=== PATIENT | female | born 1935 | race Caucasian/White ===

== ENCOUNTER 2018-09-20 12:12 | Inpatient (IN) ==
--- OUTSIDE RECORDS SUMMARY | 2018-09-20 12:16 | External Medical Summary | Continuity of Care Document ---
:1935 Author Name Toño Case, Provider Address Unavailable Unavailable , Care Team Providers Name Role Phone Angus Bhagat M.D., I. Unavailable [email or web address] Isabel Unavailable Unavailable Problems Active medical history not documented Allergies and Adverse Reactions Allergy history not documented Medications Medications not documented Procedures Procedures not documented Immunizations Immunizations not documented Plan of Treatment Planned Encounters Appointment; Angus Bhagat M.D. Start: 22-Oct-2018 11:20 Re quest Planned Observations Planned Goals not documented Results No Known Results Results not documented Encounters Appointment; Angus Bhagat M.D. 22-Oct-2018 11:20 Encounter Diagnosis: Problem not documented
[2018-09-20 12:30] LABS: Basophils # (auto) 0.01 K/uL (0-0.2); Basophils % (auto) 0.2 %; Eosinophils # (auto) 0.06 K/uL (0-0.5); Eosinophils % (auto) 1.3 %; Hemoglobin 13.2 g/dL (12.0-16.0); Lymphocytes # (auto) 1.07 K/uL (1.2-3.4); Mean Corpuscular Hgb Conc 34.7 g/dL (32-36); Mean Corpuscular Volume 91.6 fL (80-100); Mean Platelet Volume 10.3 fL (7.4-10.4); Monocytes # (auto) 0.44 K/uL (0.11-0.59); Monocytes % (auto) 9.9 %; Neutrophils # (auto) 2.87 K/uL (1.4-6.5); Neutrophils % (auto) 64.6 %; Platelet Count 153 K/uL (130-400); RDW Standard Deviation 43.5 fL (36.4-46.3); Red Blood Count 4.15 M/uL (4.2-5.4); White Blood Count 4.45 K/uL (4.8-10.8)
--- NOTE | 2018-09-20 12:35 | CT Scan Report ---
CT OF THE HEAD WITHOUT CONTRAST CLINICAL HISTORY: Stroke evaluation. COMPARISON STUDY: No previous studies for comparison. CT DOSE: 601.98 mGy.cm TECHNIQUE: Helical axial images of the head were obtained without IV contrast. Automated exposure con trol was utilized for the study. A dose lowering technique was utilized adhering to the principles o f ALARA. FINDINGS: No acute intracranial hemorrhage is present. The ventricular system is normal. The basilar cisterns are patent. Note is made of a heavily calcified 3.3 cm extra-axial lesion overlying the left temporal lobe. There are no definite CT findings to suggest acute dural sinus thrombosis or acute te rritorial infarct. Note is made of slight indistinctness of salter-white differentiation within the lef t frontal lobe. There are no significant calvarial abnormalities. IMPRESSION: 1. No acute intracranial hemorrhage. 2. Slight indistinctness of the cortex of the left frontal lobe. This is probably artifactual howeve r acute infarct could appear similar. 3. 3.3 cm extra-axial heavily calcified lesion overlying the left temporal lobe which favors a mening ioma. Electronically signed by: Junito Faulkner M.D. 09/20/2018 12:33 PM
[2018-09-20 12:41] LABS: INR 3.1 (0.9-1.1); Partial Thromboplastin Ratio 1.6; Partial Thromboplastin Time 42.4 Seconds (21.0-31.0); Prothrombin Time 29.2 Seconds (9.0-12.0)
[2018-09-20 12:47] LABS: Alanine Aminotransferase 16 U/L (12-78); Albumin Level 3.3 gm/dl (3.4-5.0); Aspartate Aminotransferase 18 U/L (15-37); BUN Creatinine Ratio 13.4 (10-20); Blood Urea Nitrogen 15 mg/dl (7-18); Calcium 8.3 mg/dl (8.5-10.1); Carbon Dioxide 28 mmol/L (21-32); Chloride 109 mmol/L (98-107); Creatinine Clr Calc Pharmacy 33.8 ml/min; Est GFR (African American) 50.8; Est GFR (Non-African American) 43.8; Glucose 116 mg/dl (70-99); Magnesium 2.2 mg/dl (1.8-2.4); Potassium 3.6 mmol/L (3.5-5.1); Sodium 140 mmol/L (136-145)
[2018-09-20 12:52] LABS: Alkaline Phosphatase 101 U/L (45-117); Bilirubin,Total 0.6 mg/dl (0.2-1); Globulin 3.2 gm/dl (2.5-4.0); Total Protein 6.5 gm/dl (6.4-8.2); Troponin I < 0.015 ng/ml (0-0.045)
[2018-09-20 12:55] LABS: iSTAT Creatinine 1.1 mg/dl (0.6-1.3); iSTAT Hemoglobin 13.6 g/dl (12.0-16.0); iSTAT Ionized Calcium 1.12 mmol/l (1.12-1.32); iSTAT Potassium 3.6 mEq/L (3.3-5.0)
[2018-09-20] MEDS ORDERED: OPTIRAY 320 125ml IV PRN (13:03)
--- NOTE | 2018-09-20 13:13 | CT Scan Report ---
CT ANGIOGRAPHY OF THE NECK WITH CONTRAST CLINICAL HISTORY: stroke, rt sided weakness COMPARISON STUDY: No previous studies for comparison. Technique: CT angiography of the carotid and vertebral arteries was obtained using [employer] 320 IV and 3D reconstruction on an independent workstation. NASCET criteria was utilized. Automated exposure c ontrol was utilized for the study. A dose lowering technique was utilized adhering to the principles of ALARA. CT DOSE: 461.39 mGy.cm Findings: Incidental note is made of multiple thyroid nodules. Biapical scarring within the lungs is noted. There is mild plaque within the proximal left internal carotid artery. There is no stenosis. T he bilateral vertebral arteries are patent. The left vertebral artery is dominant. There is no cervic al lymphadenopathy. Epiglottis is normal. No cervical spine fracture is noted. The CTA of the head wi ll be reported separately. IMPRESSION: No stenosis, dissection or aneurysm within the major vessels of the neck. Mild atherosclerotic plaqu e. Electronically signed by: Junito Faulkner M.D. 09/20/2018 1:11 PM
--- NOTE | 2018-09-20 13:21 | CT Scan Report ---
CTA ANGIOGRAPHY OF THE HEAD CLINICAL HISTORY: rt sided weakness COMPARISON STUDY: Head CT performed earlier today. TECHNIQUE: Helical axial images of the head were obtained following uneventful intravenous administr ation of 120 cc of [employer]iray 320. Automated exposure control was utilized for the study. A dose lower ing technique was utilized adhering to the principles of ALARA. FINDINGS: No acute intracranial hemorrhage is present. A heavily calcified 3.7 cm extra-axial lesion within the left middle cranial fossa likely reflects a meningioma. Ventricular system is normal. Basi lar cisterns are patent. There is mild plaque within the bilateral cavernous carotids. There is no st enosis, dissection or abrupt cut off within the intracranial circulation. Posterior circulation is al so intact. IMPRESSION: 1. Unremarkable CTA of the head. 2. 3.7 cm extra-axial heavily calcified lesion within the left middle cranial fossa which favors a me ningioma. This is benign. Electronically signed by: Junito Faulkner M.D. 09/20/2018 1:20 PM
--- NOTE | 2018-09-20 14:34 | History & Physical Report ---
Date of Service September 20, 2018 Assessment & Plan (1) Dysarthria: This is an 83-year-old female with a PMH of HTN, chronic atrial fibrillation (on Coumadin), Alzheimer's disease, HLD, CKD III, hypothyroidism, GERD and venous insufficiency who presents with slurred speech and right-sided weakness beginning around 11 this morning. -Dysarthria still present, R sided weakness has resolved -CT head without acute intracranial hemorrhage. Slight indistinctness of the cortex of the left frontal lobe. This is probably artifactual however acute infarct could appear similar. -CTA head unremarkable, presence of meningioma. CT neck without stenosis, dissection or aneurysm within the major vessels of the neck. Mild atherosclerotic plaque. -Check MRI brain w/wo, echo w/ bubble study -Initiate baby aspirin. Will discuss with neuro about also starting Plavix -Neuro checks, PT, OT, speech therapy evaluations -Passed dysphagia screen, diet advanced -Routine neurology consult (2) Chronic atrial fibrillation: EKG with sinus bradycardia -Anticoagulated on Coumadin with INR of 3.1 -Continue Coumadin, hold if INR > 3.5 -Daily INR check (3) CKD (chronic kidney disease), stage III: Kidney function at baseline -Continue monitoring with daily BMP (4) Hypertension: Normotensive currently -Want to allow for permissive hypertension in setting of possible ischemic stroke to allow for cerebral perfusion, SBP <220, DBP <110 -Home BP medications include amlodipine, hydralazine twice daily (5) Hyperlipidemia: Increased dose of atorvastatin to 40 mg daily (6) Alzheimers disease: Progressive dementia, somewhat oriented to person -Continue Aricept and Namenda (7) GERD (gastroesophageal reflux disease): Continue PPI DVT Ppx: Continue home dose Coumadin Code status: Medical power of personal injury attorney is patient's , who was not at bedside. Unable to reach by phone right now but will try again later. Full CODE STATUS in place for now. PCP: Christophe Dispo: Admitted to telemetry. Discharge planning per stroke set protocol. Patient seen in collaboration with Dr. Gómez. Please see addendum. History of Present Illness Chief Complaint: Slurred speech, right-sided weakness Primary Care Provider: NO PCP This is an 83-year-old female with a PMH of HTN, chronic atrial fibrillation (on Coumadin), Alzheimer's disease, HLD, CKD III, hypothyroidism, GERD and venous insufficiency who presents with slurred speech and right-sided weakness beginning around 11 this morning. Patient lives with at home and has advanced dementia at baseline. Is oriented to self and sometimes to place, per daughter at bedside. Daughter was with her mom this morning and thought she seemed fine. Patient woke up, ambulated independently and ate breakfast. Daughter started noting some more confusion but thought her mom was just tired. By 11 AM, patient was slurring speech and had difficulty ambulating. EMS was called to bring patient to ED for further evaluation. ROS is limited due to patient's cognitive status, but denies any pain at this time. In ED, patient was found to have stable vital signs as well as unremarkable lab work. INR is slightly supratherapeutic at 3.1. CT head with slight indistinctiveness of left frontal lobe consistent with possible acute infarct versus artifact. CTA head/neck unremarkable. Suzi tele-stroke was consulted in the ED, but felt that TPA was contraindicated due to elevated INR. Will admit patient for further stroke work-up including MRI of brain as well as echo with bubble study. No known history of stroke. Does not take baby aspirin. Allergies Allergy/AdvReac Type Severity Reaction Status Date / Time No Known Allergies Allergy Unverified 09/20/18 12:58 Home Medications Home Medications Medication Instructions Recorded Confirmed Type amlodipine [Norvasc] 5 mg PO DAILY 09/20/18 09/20/18 History atorvastatin [Lipitor] 0 mg PO DAILY 09/20/18 09/20/18 History cholecalciferol (vitamin D3) 0 unit PO BID 09/20/18 09/20/18 History [Vitamin D3] citalopram 20 mg PO DAILY 09/20/18 09/20/18 History donepezil 10 mg PO DAILY 09/20/18 09/20/18 History hydralazine 25 mg PO BID 09/20/18 09/20/18 History levothyroxine 88 mcg PO DAILY 09/20/18 09/20/18 History memantine 5 mg PO BIDM 09/20/18 09/20/18 History pantoprazole 40 mg PO BID 09/20/18 09/20/18 History raloxifene 60 mg PO DAILY 09/20/18 09/20/18 History warfarin [Coumadin] 6 mg PO DAILY 09/20/18 09/20/18 History Past Med/Surg History Medical History Lupus erythematosus (Chronic) Lupus erythematosus based on skin biopsy - labs negative GERD (gastroesophageal reflux disease) (Chronic) Anticoagulant long-term use (Chronic) Chronic atrial fibrillation (Chronic) Venous insufficiency (Chronic) CKD (chronic kidney disease), stage III (Chronic) Hyperlipidemia (Chronic) Hypertension (Chronic) Alzheimers disease (Chronic) Surgical History History of cataract surgery (Chronic) History of partial hysterectomy (Chronic) Family History Other Diabetes Social History Preferred Language: Bulgarian marital status: Current Living Situation: Spouse current occupational status: retired Feels Safe at Home: Yes Smoking Status: Never smoker Hx Alcohol Use: No Review of Systems Review of Systems: At least ten systems reviewed and negative except as noted in the HPI. Physical Exam Physical Exam: General Appearance: WD/WN, no apparent distress, resting comfortably, pleasantly confused Head: normocephalic, atraumatic Eyes: normal inspection, PERRL, EOMI ENT: hearing grossly normal, pharynx normal (moist mucous membranes) Neck: supple, no JVD, no adenopathy Respiratory/Chest: lungs clear to auscultation. No wheezes, rales or rhonci. No respiratory distress or accessory muscle use Cardiovascular: regular rate, rhythm, no murmur, normal peripheral pulses Abdomen/GI: normal bowel sounds, soft, non-tender to palpation Extremities/Musculoskelatal: normal inspection, no calf tenderness, normal capillary refill, no pedal edema Neurologic/Psych: alert, normal mood/affect, oriented x 0. Pleasantly confused, able to follow commands. +Dysarthria, no facial droop, 5/5 ALLEN in all extremities Skin: normal color, warm/dry Results & Data Vital Signs (Past 12 Hours) Vital Signs Temp Pulse Resp BP Pulse Ox 09/20/18 13:39 45 L 15 146/61 H 93 09/20/18 13:31 48 L 132/62 93 09/20/18 13:10 51 L 18 134/54 L 93 09/20/18 12:12 36.4 C L 51 L 16 136/61 91 Laboratory Results Short CBC 09/20/18 Range/Units 12:02 WBC 4.45 L (4.8-10.8) K/uL Hgb 13.2 (12.0-16.0) g/dL Hct 38.0 (37-47) % Plt Count 153 (130-400) K/uL BMP 09/20/18 12:02 Sodium 140 Potassium 3.6 Chloride 109 H Carbon Dioxide 28 BUN 15 Creatinine 1.14 Glucose 116 H Calcium 8.3 L Cardiac Enzymes 09/20/18 Range/Units 12:02 Troponin I < 0.015 (0-0.045) ng/ml Liver Function 09/20/18 Range/Units 12:02 Total Bilirubin 0.6 (0.2-1) mg/dl AST 18 (15-37) U/L ALT 16 (12-78) U/L Alkaline Phosphatase 101 (45-117) U/L Albumin 3.3 L (3.4-5.0) gm/dl Diagnostic Findings CT head: IMPRESSION: 1. No acute intracranial hemorrhage. 2. Slight indistinctness of the cortex of the left frontal lobe. This is probably artifactual however acute infarct could appear similar. 3. 3.3 cm extra-axial heavily calcified lesion overlying the left temporal lobe which favors a meningioma CTA head: IMPRESSION: 1. Unremarkable CTA of the head. 2. 3.7 cm extra-axial heavily calcified lesion within the left middle cranial fossa which favors a meningioma. This is benign. CTA neck: IMPRESSION: No stenosis, dissection or aneurysm within the major vessels of the neck. Mild atherosclerotic plaque. Supervising Physician Co-Signing Physician Notes ATTENDING ADDENDUM Patient seen and examined, care coordinated with Lynn Tim PA-C This is a 83-year-old female with baseline dementia, hypertension, hyperli pidemia, chronic A. fib on Coumadin for anticoagulation, brought to ER via EMS for strokelike symptoms Patient's daughter noticed approximately 11 AM patient was found to be more confused, unable to articulate, right-sided weakness Stroke alert was called in the ER after patient's arrival Patient was evaluated by [facility] stroke neurology,-patient was found to not a TPA candidate: On Coumadin INR 3 Patient unable to provide any information, for baseline dementia, daughter present at bedside most of the information obtained from her Daughter reports patient's confusion is much better, still having trouble to speak Bedside neurological evaluation showed no focal deficit CT head noncontrast 1. No acute intracranial hemorrhage. 2. Slight index in distinctness of the carpus of the left frontal lobe. This is probably artifactual however acute infarct could appear similar. 3. Heavily calcified lesion overlying the left temporal lobe which favors a meningioma. 3.3 cm extra-axial CTA of neck was negative study Patient will be admitted to telemetry, MRI of brain will be ordered per stroke protocol, echo with bubble study note suspicion for intra-cardiac thrombus, as patient is already therapeutic anticoagulation with Coumadin Neurology consult requested Lipitor dose increased to 40 mg daily for high intensity statin therapy Ordered fasting lipids, TSH, hemoglobin A1c in a.m. lab Bedside dysphagia screen was normal/no evidence of swallowing difficulty /ordered for diet PT OT Confusion/metabolic encephalopathy: Possibly secondary to acute CVA, baseline dementia Per daughter patient's mental status improved to approximate baseline continue Namenda Caution for sundowning, delirium Would avoid narcotics, benzodiazepine We will hold home antihypertensive meds amlodipine and hydralazine to allow permissive hypertension in the setting of possible acute CVA Coagulopathy: INR more than 3 Hold Coumadin, will be resumed to keep goal INR between 23 Leisa Gómez MD
--- NOTE | 2018-09-20 14:36 | Emergency Department Note ---
Entered by Demetrice Becerra acting as a scribe for History of Present Illness General Chief complaint: Stroke/CVA Symptoms Source: patient, family (daughter) and EMS Mode of arrival: EMS History of Present Illness Onset (ago): hour(s) (this morning) Location: head Pain Consistency: + other (episode) Quality: + other (stroke symptoms) Associated symptoms: + denies other symptoms (abdominal pain), + confusion, + weakness (right-sided lower extremity) and + other (difficulty standing or walking); no chest pain and no fever/chills The patient is a 83 year old female that is presenting to the Emergency Room with complaints of an episode of stroke-like symptoms that started this morning after waking around 0900. EMS reports that the patient was found to have right- sided weakness that worsened over the course of the morning. The patients daughter notes that the patient was well last night and that her speech was clear when she spoke with her at that time. Her daughter states that the patients speech deteriorated this morning, becoming more slurred than baseline. The daughter reports that the patient was having difficulty standing up and was unable to walk on her own. EMS states that the patient was unable to lift her right leg when they arrived. Her right-sided weakness has improved slightly as the patient's right leg is slightly weaker than the left. She is found to have a good leak patcher on exam. The patient was able to recite her name and name common objects on arrival to the Emergency Room. Her daughter states that the patients speech is still slurred. The patient denies any fevers, cough, chest pain, or abdominal pain. She notes that she is unsure why she is in the Emergency Room today. The patients daughter reports that the patient has a history of Alzheimers, chronic UTIs, and diverticulitis. Her daughter notes that the patient does not recognize people at baseline secondary to her Alzheimers but states that she is able to complete basic personal care tasks. Home Medications Home Medications Medication Instructions Recorded Confirmed Type amlodipine [Norvasc] 5 mg PO DAILY 09/20/18 09/20/18 History atorvastatin [Lipitor] 0 mg PO DAILY 09/20/18 09/20/18 History cholecalciferol (vitamin D3) 0 unit PO BID 09/20/18 09/20/18 History [Vitamin D3] citalopram 20 mg PO DAILY 09/20/18 09/20/18 History donepezil 10 mg PO DAILY 09/20/18 09/20/18 History hydralazine 25 mg PO BID 09/20/18 09/20/18 History levothyroxine 88 mcg PO DAILY 09/20/18 09/20/18 History memantine 5 mg PO BIDM 09/20/18 09/20/18 History pantoprazole 40 mg PO BID 09/20/18 09/20/18 History raloxifene 60 mg PO DAILY 09/20/18 09/20/18 History warfarin [Coumadin] 6 mg PO DAILY 09/20/18 09/20/18 History Allergies Allergy/AdvReac Type Severity Reaction Status Date / Time No Known Allergies Allergy Unverified 09/20/18 12:58 Past Med/Surg History Medical History Lupus erythematosus (Chronic) Lupus erythematosus based on skin biopsy - labs negative GERD (gastroesophageal reflux disease) (Chronic) Anticoagulant long-term use (Chronic) Chronic atrial fibrillation (Chronic) Venous insufficiency (Chronic) CKD (chronic kidney disease), stage III (Chronic) Hyperlipidemia (Chronic) Hypertension (Chronic) Alzheimers disease (Chronic) Surgical History History of cataract surgery (Chronic) History of partial hysterectomy (Chronic) Family History Other Diabetes Social History Preferred Language: Vincentian marital status: Current Living Situation: Spouse current occupational status: retired Feels Safe at Home: Yes Smoking Status: Never smoker Hx Alcohol Use: No Review of Systems See HPI for pertinent positives & negatives. and A total of 10 systems reviewed and were otherwise negative Physical Exam Vital Signs Vital Signs - 24 hr 09/20/18 12:12 09/20/18 13:10 09/20/18 13:31 Temperature 36.4 C L Temperature Source Oral Sepsis Recent Fever Within 48 Hours No Sepsis New/Unexplained Change in Mental Status No Sepsis Action Taken by Nursing No Action Required Pulse Rate 51 L 51 L 48 L Pulse Rate from SpO2 Sensor 50 L 48 L Respiratory Rate 16 18 Respiratory Effort / Characteristics Non-Labored Spontaneous Respiratory Depth Normal Respiratory Pattern Regular Blood Pressure 136/61 134/54 L 132/62 Blood Pressure Mean 86 80 85 Pulse Oximetry 91 93 93 Oxygen Delivery Method Room Air Room Air Room Air 09/20/18 13:39 09/20/18 14:00 09/20/18 14:02 Temperature Temperature Source Sepsis Recent Fever Within 48 Hours Sepsis New/Unexplained Change in Mental Status Sepsis Action Taken by Nursing Pulse Rate 45 L 46 L 49 L Pulse Rate from SpO2 Sensor 45 L 46 L 49 L Respiratory Rate 15 15 18 Respiratory Effort / Characteristics Respiratory Depth Respiratory Pattern Blood Pressure 146/61 H 139/76 Blood Pressure Mean 89 97 Pulse Oximetry 93 91 94 Oxygen Delivery Method Room Air 09/20/18 14:30 Temperature Temperature Source Sepsis Recent Fever Within 48 Hours Sepsis New/Unexplained Change in Mental Status Sepsis Action Taken by Nursing Pulse Rate 56 L Pulse Rate from SpO2 Sensor 53 L Respiratory Rate 20 Respiratory Effort / Characteristics Respiratory Depth Respiratory Pattern Blood Pressure Blood Pressure Mean Pulse Oximetry 93 Oxygen Delivery Method General: Non-ill appearing demented older female in no acute distress. Answers questions appropriately with some baseline dementia. HEENT: Normal cephalic atraumatic. Pupils are equal round and reactive to light. Extraocular movements are intact. Oropharynx is pink with moist mucous membranes. No swelling of the mouth lips or tongue. Neck: Supple with a midline trachea. No meningeal signs or stiffness, no JVD or bruits. No Stridor. Chest: Clear to auscultation bilaterally. No wheezes or rhonchi. No increased work of breathing. Heart: regular rate and rhythm. Abdomen: Soft nontender, nondistended without rebound guarding or rigidity. Extremities: No cyanosis clubbing or edema. No calf tenderness or asymmetry Spine/Back. Non tender to palpation. No CVA tenderness Skin: Good turgor without rashes. Neurologic exam: Cranial nerves two through 12 are intact. Motor and sensation are intact throughout. No facial asymmetry. Questionable slight slurring in speech. Right leg is slightly weaker than left. Course 1205: After speaking with EMS, I placed the patient on stroke alert prior to arrival at the Emergency Room. The patient was reportedly experiencing right- sided weakness and slurred speech. 1212:The patient was evaluated in room B01. A complete history and physical examination was performed. The patient appears to have an improvement in her symptoms with increased leak patcher strength and greater right-sided strength. The patient's INR is 3.5. 1233: I discussed the patient's case with Dr. Cordova, [facility], who agreed that the patient is not a tPA candidate given her elevated INR. He stated that the patient is unlikely an interventional candidate. He recommended a CTA head and neck be completed. 1330: I updated the patient on her current lab and imaging results. 1335: I discussed the patients case with TIERA Diaz, who will evaluate the patient for further management and care with Dr. Gómez as the attending physician. 1340: Upon reevaluation, the patient is resting comfortably. I discussed laboratory and radiographic results with the patient and her daughter. She verbalized agreement of the treatment plan. The patient will be evaluated for further management and care. Consultations Consultation #1: I discussed the patient's case with Dr. Cordova, [facility], who agreed that the patient is not a tPA candidate. He stated that the patient is unlikely interventional candidate. He recommended a CTA be completed. Time: 12:33 Consultation #2: I discussed the patients case with TIERA Diaz, who will evaluate the patient for further management and care with Dr. Gómez as the attending physician. Time: 13:35 Administered Medications Ioversol (Optiray 320 125ml) 120 ml IV ONCE PRN PRN Reason: Interaction Checking Stop: 09/24/18 13:02 Last Admin: 09/20/18 13:03 Dose: 120 ml Documented by: [id number] Medical Decision Making Differential Diagnosis Differential Diagnosis: Etiologies such as stroke, TIA, intracranial hemorrhage, electrolyte or metabolic abnormalities, infection as well as others were entertained. Medical Records Attestation: I reviewed the patient's medical records. Home Medications Current Medication List: was personally reviewed by me Laboratory Data Attestation: I reviewed the patient's lab results. Result diagrams: 09/20/18 12:02 09/20/18 12: Lab Results 09/20/18 09/20/18 09/20/18 Range/Units 12:02 12:02 12:02 WBC 4.45 L (4.8-10.8) K/uL RBC 4.15 L (4.2-5.4) M/uL Hgb 13.2 (12.0-16.0) g/dL POC Hgb (12.0-16.0) g/dl Hct 38.0 (37-47) % POC Hct (37-47) % MCV 91.6 (80-100) fL MCH 31.8 (25-34) pg MCHC 34.7 (32-36) g/dL RDW Std Deviation 43.5 (36.4-46.3) fL RDW Coeff of Hilda 13.0 (11.5-14.5) % Plt Count 153 (130-400) K/uL MPV 10.3 (7.4-10.4) fL Immature Gran % (Auto) 0.0 % Neut % (Auto) 64.6 % Lymph % (Auto) 24.0 % [place] % (Auto) 9.9 % Eos % (Auto) 1.3 % Baso % (Auto) 0.2 % Immature Gran # (Auto) 0.00 (0.00-0.02) K/uL Neut # (Auto) 2.87 (1.4-6.5) K/uL Lymph # (Auto) 1.07 L (1.2-3.4) K/uL [place] # (Auto) 0.44 (0.11-0.59) K/uL Eos # (Auto) 0.06 (0-0.5) K/uL Baso # (Auto) 0.01 (0-0.2) K/uL PT 29.2 H (9.0-12.0) Seconds INR 3.1 H (0.9-1.1) APTT 42.4 H (21.0-31.0) Seconds PTT Ratio 1.6 POC Sodium (135-144) mEq/L Sodium 140 (136-145) mmol/L POC Potassium (3.3-5.0) mEq/L Potassium 3.6 (3.5-5.1) mmol/L POC Chloride (101-112) mEq/L Chloride 109 H (98-107) mmol/L Carbon Dioxide 28 (21-32) mmol/L POC Total CO2 (24-31) mEq/l Anion Gap 3.0 (3-11) POC Anion Gap (16-25) mmol/L POC BUN (7-18) mg/dl BUN 15 (7-18) mg/dl Creatinine 1.14 (0.6-1.2) mg/dl POC Creatinine (0.6-1.3) mg/dl Est Cr Clr Drug Dosing 33.8 ml/min Est GFR ( Amer) 50.8 Est GFR (Non-Af Amer) 43.8 BUN/Creatinine Ratio 13.4 (10-20) Glucose 116 H (70-99) mg/dl POC Glucose (70-99) POC Glucose (other) (70-99) mg/dl Calcium 8.3 L (8.5-10.1) mg/dl POC Ioniz Calcium Adilene (1.12-1.32) mmol/l Magnesium 2.2 (1.8-2.4) mg/dl Total Bilirubin 0.6 (0.2-1) mg/dl AST 18 (15-37) U/L ALT 16 (12-78) U/L Alkaline Phosphatase 101 (45-117) U/L Troponin I < 0.015 (0-0.045) ng/ml Total Protein 6.5 (6.4-8.2) gm/dl Albumin 3.3 L (3.4-5.0) gm/dl Globulin 3.2 (2.5-4.0) gm/dl Albumin/Globulin Ratio 1.0 (0.9-2) Blood Type Antibody Screen 09/20/18 09/20/18 09/20/18 Range/Units 12:24 12:35 12:41 WBC (4.8-10.8) K/uL RBC (4.2-5.4) M/uL Hgb (12.0-16.0) g/dL POC Hgb 13.6 (12.0-16.0) g/dl Hct (37-47) % POC Hct 40 (37-47) % MCV (80-100) fL MCH (25-34) pg MCHC (32-36) g/dL RDW Std Deviation (36.4-46.3) fL RDW Coeff of Hilda (11.5-14.5) % Plt Count (130-400) K/uL MPV (7.4-10.4) fL Immature Gran % (Auto) % Neut % (Auto) % Lymph % (Auto) % [place] % (Auto) % Eos % (Auto) % Baso % (Auto) % Immature Gran # (Auto) (0.00-0.02) K/uL Neut # (Auto) (1.4-6.5) K/uL Lymph # (Auto) (1.2-3.4) K/uL [place] # (Auto) (0.11-0.59) K/uL Eos # (Auto) (0-0.5) K/uL Baso # (Auto) (0-0.2) K/uL PT (9.0-12.0) Seconds INR (0.9-1.1) APTT (21.0-31.0) Seconds PTT Ratio POC Sodium 143 (135-144) mEq/L Sodium (136-145) mmol/L POC Potassium 3.6 (3.3-5.0) mEq/L Potassium (3.5-5.1) mmol/L POC Chloride 104 (101-112) mEq/L Chloride (98-107) mmol/L Carbon Dioxide (21-32) mmol/L POC Total CO2 26 (24-31) mEq/l Anion Gap (3-11) POC Anion Gap 17.0 (16-25) mmol/L POC BUN 15 (7-18) mg/dl BUN (7-18) mg/dl Creatinine (0.6-1.2) mg/dl POC Creatinine 1.1 (0.6-1.3) mg/dl Est Cr Clr Drug Dosing ml/min Est GFR ( Amer) Est GFR (Non-Af Amer) BUN/Creatinine Ratio (10-20) Glucose (70-99) mg/dl POC Glucose 103 H (70-99) POC Glucose (other) 113 H (70-99) mg/dl Calcium (8.5-10.1) mg/dl POC Ioniz Calcium [place] 1.12 (1.12-1.32) mmol/l Magnesium (1.8-2.4) mg/dl Total Bilirubin (0.2-1) mg/dl AST (15-37) U/L ALT (12-78) U/L Alkaline Phosphatase (45-117) U/L Troponin I (0-0.045) ng/ml Total Protein (6.4-8.2) gm/dl Albumin (3.4-5.0) gm/dl Globulin (2.5-4.0) gm/dl Albumin/Globulin Ratio (0.9-2) Blood Type O Positive Antibody Screen NEGATIVE Imaging Data Radiologist's Impression: Radiology results as stated below per my review and the radiologist's interpretation: CT OF THE HEAD WITHOUT CONTRAST CLINICAL HISTORY: Stroke evaluation. COMPARISON STUDY: No previous studies for comparison. CT DOSE: 601.98 mGy.cm TECHNIQUE: Helical axial images of the head were obtained without IV contrast. Automated exposure control was utilized for the study. A dose lowering technique was utilized adhering to the principles of ALARA. FINDINGS: No acute intracranial hemorrhage is present. The ventricular system is normal. The basilar cisterns are patent. Note is made of a heavily calcified 3.3 cm extra-axial lesion overlying the left temporal lobe. There are no definite CT findings to suggest acute dural sinus thrombosis or acute territo rial infarct. Note is made of slight indistinctness of salter-white differentiation within the left frontal lobe. There are no significant calvarial abnormalities. IMPRESSION: 1. No acute intracranial hemorrhage. 2. Slight indistinctness of the cortex of the left frontal lobe. This is probably artifactual however acute infarct could appear similar. 3. 3.3 cm extra-axial heavily calcified lesion overlying the left temporal lobe which favors a meningioma. Electronically signed by: Junito Faulkner M.D. 09/20/2018 12:[address] ANGIOGRAPHY OF THE NECK WITH CONTRAST CLINICAL HISTORY: stroke, rt sided weakness COMPARISON STUDY: No previous studies for comparison. Technique: CT angiography of the carotid and vertebral arteries was obtained using Optiray 320 IV and 3D reconstruction on an independent workstation. NASCET criteria was utilized. Automated exposure control was utilized for the study. A dose lowering technique was utilized adhering to the principles of ALARA. CT DOSE: 461.39 mGy.cm Findings: Incidental note is made of multiple thyroid nodules. Biapical scarring within the lungs is noted. There is mild plaque within the proximal left internal carotid artery. There is no stenosis. The bilateral vertebral arteries are patent. The left vertebral artery is dominant. There is no cervical lymphadenopathy. Epiglottis is normal. No cervical spine fracture is noted. The CTA of the head will be reported separately. IMPRESSION: No stenosis, dissection or aneurysm within the major vessels of the neck. Mild atherosclerotic plaque. Electronically signed by: Junito Faulkner M.D. 09/20/2018 1:11 PM CTA ANGIOGRAPHY OF THE HEAD CLINICAL HISTORY: rt sided weakness COMPARISON STUDY: Head CT performed earlier today. TECHNIQUE: Helical axial images of the head were obtained following uneventful intravenous administration of 120 cc of [employer]iray 320. Automated exposure control was utilized for the study. A dose lowering technique was utilized adhering to the principles of ALARA. FINDINGS: No acute intracranial hemorrhage is present. A heavily calcified 3.7 cm extra-axial lesion within the left middle cranial fossa likely reflects a meningioma. Ventricular system is normal. Basilar cisterns are patent. There is mild plaque within the bilateral cavernous carotids. There is no stenosis, dissection or abrupt cut off within the intracranial circulation. Posterior circulation is also intact. IMPRESSION: 1. Unremarkable CTA of the head. 2. 3.7 cm extra-axial heavily calcified lesion within the left middle cranial fossa which favors a meningioma. This is benign. Electronically signed by: Junito Faulkner M.D. 09/20/2018 1:20 PM ECG Data Attestation: I personally reviewed and interpreted this ECG as follows: Indication: weakness Rate (beats per minute): 46 Rhythm: sinus bradycardia Findings: no PAC, no PVC, no ST depression, no ST elevation, no acute ischemic change and no ectopy Comparison ECG Date: from (08/18/2015) Change: the following changes noted (rate decrease) Blood Pressure Blood Pressure Findings: Normal blood pressure MDM Narrative This patient is a 83-year-old female who comes in as a stroke alert. I talked to the paramedics prior to arrival and did make her a stroke alert as approximately 1 hour prior to arrival by the report she had right-sided weakness and slurred speech which is new she does have baseline dementia. She is on Coumadin. no recent illness or trauma known although history was somewhat limited prior to arrival. We took her immediately to CAT scan and while she was over there we also got an i-STAT for an INR and it was elevated and greater than 2.5 and therefore it would exclude her from receiving TPA. Additionally it seems like her symptoms have gotten somewhat better. she has minimal residual weakness in her right hand and it may be just a little pronator drift the right leg does seem to be weaker than the left. she is able to move it somewhat but has a difficult time holding it up compared to the left. Her daughter also thinks her speech may be a little slurred. She does have baseline dementia so it is difficult to tell about questioning orientation. CAT scan of her head was unremarkable there is no hemorrhage. EKG shows sinus bradycardia. She has no acute electrode or metabolic abnormalities and thus far nothing to suggest infection. I did discuss case with Dr. Mckeon and talked to him prior to the patient's arrival as well as her arrival. He agrees that she is not a TPA candidate given her elevated INR. He did recommend a CTA of the head and neck which I did and there are no large vessel occlusions. He said that if that was the case then there would be nothing that they could offer her at [place] differently than here. I discussed this with the daughter she agrees we will keep her here for further treatment evaluation of her stroke. The daughter was happy the plan and she was admitted and I talked to the [facility] hospitalist. Impression & Plan CVA (cerebral vascular accident), Dementia, Chronic atrial fibrillation, Anticoagulant long-term use Discharge Plan Visit Data Chief Complaint: Stroke/CVA Symptoms ED Provider: Fran Frias Discharge Problem: CVA (cerebral vascular accident), Dementia, Chronic atrial fibrillation, Anticoagulant long-term use Patient Disposition: Being Evaluated by Hospitalist Forms Stand Alone Forms: My [facility] Prescriptions Prescriptions: No Action atorvastatin [Lipitor] 10 mg Tablet PO DAILY RF: 0 donepezil 10 mg Tablet 10 mg PO DAILY RF: 0 hydralazine 25 mg Tablet 25 mg PO BID RF: 0 amlodipine [Norvasc] 5 mg Tablet 5 mg PO DAILY RF: 0 warfarin [Coumadin] 6 mg Tablet 6 mg PO DAILY RF: 0 citalopram 20 mg Tablet 20 mg PO DAILY RF: 0 pantoprazole 40 mg Tablet,Delayed Release (Dr/Ec) 40 mg PO BID RF: 0 raloxifene 60 mg Tablet 60 mg PO DAILY RF: 0 memantine 5 mg Tablet 5 mg PO BIDM RF: 0 cholecalciferol (vitamin D3) [Vitamin D3] 1,000 unit Tablet PO BID RF: 0 levothyroxine 88 mcg Capsule 88 mcg PO DAILY RF: 0 Referrals Referrals: PCP,NO [Primary Care Provider] - The scribe's documentation has been prepared under my direction and personally r eviewed by me in its entirety. I confirm that the note above accurately reflects all work, treatment, procedures, and medical decision making performed by me.
[2018-09-20] MEDS ORDERED: NITROGLYCERIN SL 0.4 MG/TAB TAB SL PRN (16:28)
[2018-09-20] MEDS ORDERED: ONDANSETRON INJ 2 MG/ML 2 ML VIAL IV PRN (16:28)
[2018-09-20] MEDS ORDERED: WARFARIN SOD 6 MG TAB PO SCH (16:28)
[2018-09-20] MEDS ORDERED: PHARMACIST DISCHARGE MED REC CONSULT PRN (16:28)
[2018-09-20] MEDS: MEMANTINE HCL 5 MG TAB PO SCH (20:55)
[2018-09-20] MEDS: PANTOprazole 40 MG TAB PO SCH (20:55)
[2018-09-21 06:11] LABS: Eosinophils # (auto) 0.02 K/uL (0-0.5); Eosinophils % (auto) 0.3 %; Hematocrit (blood only) 40.6 % (37-47); Immature Granulocytes # (auto) 0.01 K/uL (0.00-0.02); Immature Granulocytes % (auto) 0.2 %; Lymphocytes # (auto) 0.69 K/uL (1.2-3.4); Lymphocytes % (auto) 10.7 %; Mean Corpuscular Hgb Conc 34.5 g/dL (32-36); Mean Corpuscular Volume 90.8 fL (80-100); Mean Platelet Volume 10.6 fL (7.4-10.4); Monocytes # (auto) 0.35 K/uL (0.11-0.59); Monocytes % (auto) 5.4 %; Neutrophils # (auto) 5.38 K/uL (1.4-6.5); Neutrophils % (auto) 83.4 %; Platelet Count 145 K/uL (130-400); RDW Coefficient of Variation 12.7 % (11.5-14.5); RDW Standard Deviation 42.2 fL (36.4-46.3); Red Blood Count 4.47 M/uL (4.2-5.4); White Blood Count 6.45 K/uL (4.8-10.8)
[2018-09-21 06:21] LABS: INR 3.2 (0.9-1.1); Prothrombin Time 30.3 Seconds (9.0-12.0)
[2018-09-21] MEDS ORDERED: LEVOTHYROXINE SODIUM 88 MCG TABLET PO SCH (06:30)
[2018-09-21 06:51] LABS: BUN Creatinine Ratio 13.7 (10-20); Calcium 8.4 mg/dl (8.5-10.1); Creatinine Clr Calc Pharmacy 41.4 ml/min; Potassium 3.3 mmol/L (3.5-5.1)
[2018-09-21] MEDS ORDERED: POTASSIUM CHLORIDE 20 MEQ TABCR PO ONE (08:30)
[2018-09-21] MEDS: MEMANTINE HCL 5 MG TAB PO SCH (08:59)
[2018-09-21] MEDS: PANTOprazole 40 MG TAB PO SCH (08:59)
[2018-09-21] MEDS ORDERED: CHOLECALCIFEROL 1,000 UNITS TAB PO SCH (09:00)
[2018-09-21] MEDS ORDERED: CITALOPRAM 20 MG TAB PO SCH (09:00)
[2018-09-21] MEDS ORDERED: ATORVASTATIN 40 MG TAB PO SCH (09:00)
[2018-09-21] MEDS ORDERED: AMLODIPINE BESYLATE 5 MG TAB PO SCH (09:00)
[2018-09-21] MEDS ORDERED: DONEPEZIL HCL 10 MG TAB PO SCH (09:00)
[2018-09-21] MEDS ORDERED: RALOXIFENE HCL 60 MG TAB PO SCH (09:00)
[2018-09-21] MEDS ORDERED: ASPIRIN 81 MG ECTAB PO SCH (09:00)
--- NOTE | 2018-09-21 10:09 | Magnetic Resonance Report ---
MR ANGIOGRAM OF THE BRAIN CLINICAL HISTORY: Strokelike symptoms. COMPARISON STUDY: CT angiogram of the brain dated 09/20/2018. TECHNIQUE: 3-D [id number] MR angiography of the intracranial circulation is performed. 3-D tumble views are created and assessed. IV contrast was not administered for this examination. FINDINGS: The internal carotid arteries are widely patent bilaterally, as are the anterior and middl e cerebral arteries. The vertebrobasilar system and posterior cerebral arteries are widely patent. Th e left vertebral artery is dominant. There is no aneurysm, high-grade stenosis, or focal vessel cuto ff seen throughout the intracranial circulation. The brain parenchyma is normal as visualized. IMPRESSION: Unremarkable MR angiogram of the brain. No change from yesterday's CT angiogram of the b rain. Electronically signed by: Rene Small M.D. 09/21/2018 10:08 AM
[2018-09-21] MEDS ORDERED: GADOBUTROL 30ML VIAL IV PRN (10:12)
--- NOTE | 2018-09-21 10:24 | Magnetic Resonance Report ---
MRI OF THE BRAIN COMBO CLINICAL HISTORY: Strokelike symptoms. COMPARISON STUDY: CT of the brain dated 09/20/2018. TECHNIQUE: MRI of the brain was performed utilizing various T1 and T2-weighted sequences in the axial , sagittal, and coronal planes. Contrast-enhanced sequences were acquired following the administratio n of 6.5 cc of Gadavist. FINDINGS: Brain parenchyma: There is age-related involutional change noting moderate confluent subcortical and periventricular microangiopathic disease. There is a 1.9 cm focus of restricted diffusion identified in the left linn. This is consistent with acute to subacute ischemia. No additional foci of acute isc hemia are identified. There is no hemorrhage or midline shift. A 3.8 cm densely calcified extra-axial nodule along the left temporal convexity is unchanged and likely represents a meningioma. This cause s only minimal localized mass effect. No additional mass lesion is identified on the postcontrast bear ges. No extra-axial fluid collection is seen. The cerebellar tonsils are normal in configuration. Ventricles, sulci, and cisterns: Prominent secondary to involutional change. Pituitary and sella: Unremarkable. Intracranial vasculature: Normal flow voids are maintained at the skull base. Orbits: The bony orbits are grossly intact. Orbital contents are normal in appearance, noting bilater al ocular lens implants. Sinuses and mastoids: Clear. Calvarium: Unremarkable. Cervical cord: Partially visualized cervical spinal cord is normal in morphology and signal intensity . IMPRESSION: 1. There is a 1.9 cm focus of restricted diffusion identified in the left linn consistent with acute to subacute infarct. 2. No additional foci of acute ischemia are identified. 3. There is no hemorrhage or mass effect. 4. A 3.8 cm densely calcified extra-axial lesion along the left temporal convexity is typical appeara nce for a large meningioma. This causes only mild localized mass effect. Electronically signed by: Rene Small M.D. 09/21/2018 10:22 AM
--- NOTE | 2018-09-21 14:21 | Consultation Report ---
DATE OF CONSULTATION: 09/21/2018 REASON FOR CONSULTATION: Possible stroke. HISTORY OF PRESENT ILLNESS: The patient is an 83-year-old with hypertension, chronic atrial fibrillation, therapeutic on Coumadin, Alzheimer disease, hyperlipidemia, kidney disease, hypothyroidism, and reflux, presenting with a sudden onset of slurred speech and right-sided weakness. The indicates that she has been in her usual state of health, no prior history of transient ischemia. She has recently been ill. No head or neck injury. PAST MEDICAL HISTORY: As above, additionally cutaneous lupus, reflux, atrial fibrillation. PAST SURGICAL HISTORY: Cataract surgery, partial hysterectomy. FAMILY HISTORY: Possible stroke. SOCIAL HISTORY: Nonsmoker, nondrinker. Lives with her . LABORATORY DATA: White count, H and H, and platelet count are normal. INR 3.1 on admission. Chemistry profile notable for glucose of 116, calcium 8.3, albumin 3.3. CT of the head noncontrast; extraaxial heavily calcified lesion in the left temporal lobe, favoring meningioma (this is known). CTA of head and neck unremarkable, mild atherosclerotic changes. MRI of the brain; 1.9 cm focus of restricted diffusion in the left linn, 3.8 cm densely calcified extraaxial lesion mass in the left yazidi convexity typical for a large meningioma present, mild localized mass effect. MRA unremarkable. PHYSICAL EXAMINATION: VITAL SIGNS: 129/67, 54, 17, 36.6, 92. GENERAL: The patient is awake and alert. There is a paucity of spontaneous speech. She is oriented only to self. There is some mild spontaneous word finding difficulty, which I am assuming is related to her cognitive dysfunction. Speech is dysarthric. Unclear if there is right/left confusion. HEAD: Normocephalic, atraumatic. NECK: No carotid bruits. HEART: No heart murmurs. Heart is irregular. NEUROLOGIC: Pupils are postsurgical. Optic nerves are difficult to visualize, grossly it appears boggs are intact. There is normal motility. There is a flattening of the right nasolabial fold and a widening of the right palpebral fissure. There is decreased tone in the right upper and right lower; they are 0/5. Left upper and left lower appear to be full. Reflexes are symmetric. Right toe is up, left toe is down. There appears to be a right hemianesthesia at least to light touch. IMPRESSION AND PLAN: 1. 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 Recommend adding antiplatelet therapy with aspirin 81 mg. Continue risk factor modification. 2. Large left hemisphere meningioma. I do not know to what extent this is causing any of the noted language dysfunction which could otherwise certainly be consistent with Alzheimer's disease. The patient will obviously need significant rehabilitation. Further workup including monitoring and echo is appropriate. Addendum 6:12 pm. I spoke to Dr Gómez several hours ago. She clarified for me that on admission the pt had a minor neurologic deficit. At some point between her admission there had been a marked increase in weakness. When I had discussed with that admission history indicated that she had improved from admission. He indicated that the weakness had not improved. Her had been out of town yesterday, so may not have been aware of what strength had been. This a probably a small vessel branch occlusion. There is no hemorrhagic transformation. I rec avoiding low blood pressure, hydrating in an attempt to maintain good perfusion. Continue anticoagulation and repeat CT head tomorrow am. If the infarct is not large or hemorrhagic will consider the addition of aspiring 81 mg at that time. ARSEN Cummins MD [facility]
--- NOTE | 2018-09-21 14:48 | Hospitalist Progress Note ---
Date of Service September 21, 2018 Assessment & Plan (1) Acute CVA (cerebrovascular accident): Left lung acute right facial droop, severe dysarthria, dysphagia, with drooling of saliva, dense right-sided paralysis, flaccid right arm/right leg Happened after admission: exact timing of acute stroke unable to determine MRI of brain: 1.9 cm focus of restricted diffusion identified in the left linn consistent with acute to subacute infarct. No additional foci of acute ischemia noted, there is no hemorrhage or adjusted to previous midline shift Appreciate input from neurology, Caution should be taken to prevent any episode of hypotension, will need further cerebral ischemia Keep INR between 2-3, aspirin ordered for 300 mg per rectal as significant dysphagia noted Speech pathology consulted Ordered to repeat CT head noncontrast in a.m. 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: MRI shows acute CVA involving left linn Marked right-sided facial droop right-sided dense paralysis, right hemineglect noted Continue neurochecks Neurology consulted, appreciate input Continue management as outlined above (3) National Institutes of Health (NIH) Stroke Scale dysarthria score 2, severe dysarthria; patient's speech is so slurred as to be unintelligible in the absence of or out of proportion to any dysphasia, or is mute/anarthric: With septal dysarthria, symptom was noted to be worsened this morning, Able to follow simple command Hard to understand articulation Speech pathology consulted Keep n.p.o. until speech evaluation for concern of significant dysphagia/aspiration risk (4) Chronic atrial fibrillation: Chronic anticoagulation on Coumadin, presented with therapeutic INR Discussed with mentions 6 weeks back her INR was 2.6 Continue to monitor PT/INR goal 23 Coumadin kept on hold as INR 3.1 Beta-indiana kept on hold to allow permissive hypertension in the setting of an acute CVA Monitor shows rate controlled A. fib (5) Anticoagulant long-term use: Coumadin for chronic A. fib, INR therapeutic (6) Alzheimers disease: Baseline dementia, Oriented to person only, (7) Dementia: (8) Hypertension: Hold antihypertensive, including beta-indiana to allow permissive hypertension (9) Hyperlipidemia: Statin kept on hold: N.p.o. status, pending speech evaluation: Concern for severe dysphasia/aspiration risk (10) CKD (chronic kidney disease), stage III: Creatinine at baseline: Continue monitor DVT prophylaxis: INR therapeutic Disposition: Lives at home with , needed assist in ADLs for advanced dementia Developed dense right-sided paralysis due to acute CVA PT OT evaluation requested Patient will need rehab Social service consulted for discharge planning Patient has been updated at bedside Subjective Patient noted to have acute facial droop right side, with drooling of saliva, significant dysarthria change from yesterday's evaluation, dense right-sided paralysis with right-sided hemineglect Significant change from neurological status since yesterday here Patient was evaluated by myself and with physician assistant to the vice president Lynn Tim Pa-C yesterday 09/20/2018 at approximately 2 PM, the time patient was alert and awake, did not have any facial droop, at baseline dementia, oriented to person only but no difficulty in articulation noted, Strength was 4 out of 5 on right side, 5 out of 5 out of 5 on the left side, patient was able to move all extremities spontaneously, Able to lift right arm above shoulder, and participate in strength testing providing adequate resistance on both right upper and lower extremity Calculated NIH score was 3 -unable to answer month and age 2 point (baseline dementia)/dysarthria 1-point Passed bedside dysphagia screen, AHA diet was ordered No report of dysphagia noted No report of any change of neurological status no change in neurological status reported to me by the time he left hospital at approximately 8 PM yesterday 09/20/2018 NIH stroke scale score 19 MRI of brain showed acute CVA 1.9 cm restricted diffusion on the left linn area, Patient is already anticoagulated INR 3.[address] Fraser updated regarding MRI finding Recommends : Permissive hypertension, strict caution against hypotensive episode, which can lead to further cerebral ischemia, worsening of neurological deficit Addition of aspirin, ordered aspirin 300 mg per rectal daily, Strict n.p.o., speech evaluation Neurology agreeable to holding Coumadin as INR is upper level of therapeutic range 's possible small vessel stroke involving midbrain /linn area, chance of hemorr hagic conversation is low MRI of brain does not show any evidence of hemorrhage, no midline shift Recommends continue to have INR in therapeutic range, Ordered CT brain noncontrast in a.m. to assess for any hemorrhagic transformation Overall prognosis is very poor updated at bedside, understands the severity and consequence of dense stroke/right sided paralysis,/unable to eat, unable to talk With need inpatient rehab-possible long-term placement, chance to return back to prior functional status and return back home is very low is very understanding, offered to update patient's daughter, already left [employer] to go back to work in [place] Mr. Narvaez wanted to update himself, Counseling provided to patient's at bedside, answered questions Patient will need to continue to monitor in PCU, with frequent neuro checks Physical Exam Constitutional: no acute distress Marked right sided facial droop Results & Data Vital Signs (Past 12 Hours) Vital Signs Temp Pulse Pulse Resp BP BP Pulse Ox 09/21/18 10:44 36.6 C 54 L 17 129/67 92 09/21/18 07:28 36.9 C 52 L 17 130/68 94 09/21/18 05:03 124/72 09/21/18 04:39 36.5 C 60 16 176/75 H 96 (1) Dementia Alzheimer's disease onset: unspecified onset Dementia behavioral disturbance: without behavioral disturbance Dementia type: Alzheimer's disease Qualified Code(s): G30.9 - Alzheimer's disease, unspecified; F02.80 - Dementia in other diseases classified elsewhere without behavioral disturbance
[2018-09-21] MEDS ORDERED: WARFARIN SOD 6 MG TAB PO SCH (16:00)
[2018-09-21] MEDS: D5W AND LACTATED RINGERS 1,000 ML IV SCH (16:58)
[2018-09-22] MEDS: D5W AND LACTATED RINGERS 1,000 ML IV SCH ×2 (05:14→18:16)
[2018-09-22 06:04] LABS: Basophils # (auto) 0.01 K/uL (0-0.2); Basophils % (auto) 0.2 %; Eosinophils # (auto) 0.05 K/uL (0-0.5); Eosinophils % (auto) 0.9 %; Hematocrit (blood only) 38.2 % (37-47); Hemoglobin 13.4 g/dL (12.0-16.0); Immature Granulocytes # (auto) 0.01 K/uL (0.00-0.02); Immature Granulocytes % (auto) 0.2 %; Lymphocytes # (auto) 1.02 K/uL (1.2-3.4); Lymphocytes % (auto) 17.8 %; Mean Corpuscular Hgb Conc 35.1 g/dL (32-36); Mean Platelet Volume 10.2 fL (7.4-10.4); Monocytes % (auto) 8.7 %; Neutrophils # (auto) 4.13 K/uL (1.4-6.5); Neutrophils % (auto) 72.2 %; Platelet Count 158 K/uL (130-400); RDW Coefficient of Variation 13.1 % (11.5-14.5); RDW Standard Deviation 43.4 fL (36.4-46.3); White Blood Count 5.72 K/uL (4.8-10.8)
[2018-09-22 06:20] LABS: INR 3.2 (0.9-1.1); Prothrombin Time 30.1 Seconds (9.0-12.0)
[2018-09-22 06:40] LABS: Estimated Average Glucose 123 mg/dl; Hemoglobin A1C 5.9 % (4.5-5.6)
[2018-09-22 06:45] LABS: Calcium 8.4 mg/dl (8.5-10.1); Creatinine Clr Calc Pharmacy 38.1 ml/min; Est GFR (African American) 58.8; Est GFR (Non-African American) 50.7; Potassium 3.6 mmol/L (3.5-5.1)
[2018-09-22] MEDS ORDERED: PERFLUTREN LIPID MICROSPHERE (DEFINITY) IV ONE (07:18)
[2018-09-22] MEDS ORDERED: ASPIRIN 300 MG SUPP PR SCH (09:00)
--- NOTE | 2018-09-22 09:07 | CT Scan Report ---
CT head/brain wo con CT DOSE: 537.48 mGy.cm HISTORY: Stroke Acute CVA r/o hemorrhage TECHNIQUE: Multiaxial CT images of the head were performed without the use of intravenous contrast. A dose lowering technique was utilized adhering to the principles of ALARA. Comparison: MRI of 09/21/2018. CT 09/20/2018 Findings: The paranasal sinuses and mastoid air cells are clear. Small subacute infarct left linn. De nsity characteristics of the cerebellar as well as cerebral hemispheres otherwise indicate components of chronic age-related chronic small vessel change and atrophy. The temporal fossa heavily calcified meningioma is unchanged. No midline shift. Impression: 1. Subacute infarct left linn. 2. Left temporal fossa meningioma unchanged. 3. No acute intracranial hemorrhage. The above report was generated using voice recognition software. It may contain grammatical, syntax or spelling errors. Electronically signed by: Gamal Louis M.D. 09/22/2018 9:05 AM
--- NOTE | 2018-09-22 15:07 | Neurology Progress Note ---
Date of Service September 22, 2018 Assessment & Plan (1) Acute CVA (cerebrovascular accident): 1. continue coumadin - INR 2.0-3.0 2. aspirin 300 currently being given VT- switch to 81 mg oral when able to tolerate 3. namenda and aricept on hold at this point- likely not beneficial at this stage of dementia 4. optimize lipid profile and HTN- avoid hypo tension 5. PT/OT speech for discharge needs 6. she will need placement at this point will not be appropriate for return home 7. CT repeated no hemorrhagic conversion follow up in 4-6 weeks after discharge with neurology Colette Berkowitz PAC schedule (2) Dementia: 1. namenda and aricept on hold likely not beneficial at this stage of dementia Supervising Physician Co-Signing Physician Notes I have seen and discussed above patient with Dr Colette Cummins, neurology Pt seen and examined. CT head left pontine infarct likely branch vessel occlusion., no hemorrhagic transformation. Exam alert, decreased R NLF, dysarthria, RUE RLE 0/5. P asa, in addition to anticoagulant. Permissive hypertension. ARSEN Cummins MD Sandra Wong is an 83 year old female with PMH- HTN, chronic AF (on Coumadin), Alzheimer's , HLD, CKD III, hypothyroidism, GERD and venous insufficiency who presents with slurred speech and right-sided weakness. She lives with at home and has advanced dementia at baseline. INR was slightly supratherapeutic at 3.1 on admission. Suzi tele-stroke was consulted in the ED, but felt that TPA was contraindicated due to elevated INR. She currently is lying in bed and her is bedside. He states it is his understanding she will be discharged to rehab. ROS unable to obtain due to dementia. fed her this am and did well with soft diet. Physical Exam Physical Exam: gen: alert with voice command lungs CTA CV irregular right side unable to director of preclinical research or resist with biceps triceps, unable to flex right left. left UE hand director of preclinical research biceps triceps 4+/5, hip flex against resistance oriented to self, not to day or location right facial droop and slurred speech eyes: does not tract to right reflexes brisk UE Results & Data Vital Signs (Past 12 Hours) Vital Signs Temp Pulse Resp BP Pulse Ox 09/22/18 11:38 36.8 C 50 L 19 146/71 H 92 09/22/18 10:54 36.5 C 53 L 18 149/78 H 93 09/22/18 06:39 36.7 C 54 L 16 130/74 91 09/22/18 04:26 37.0 C 58 L 18 137/71 93 Abnormal lab results 09/20/18 09/20/18 09/21/18 Range/Units 12:02 12:18 18:00 Lymph # (Auto) (1.2-3.4) K/uL PT (9.0-12.0) Seconds POC INR 3.5 H (0.9-1.1) INR (0.9-1.1) Glucose (70-99) mg/dl POC Glucose 135 H (70-99) Hemoglobin A1c 5.9 H (4.5-5.6) % Calcium (8.5-10.1) mg/dl 09/21/18 09/22/18 09/22/18 Range/Units 23:23 05:38 05:38 Lymph # (Auto) 1.02 L (1.2-3.4) K/uL PT 30.1 H (9.0-12.0) Seconds POC INR (0.9-1.1) INR 3.2 H (0.9-1.1) Glucose (70-99) mg/dl POC Glucose 125 H (70-99) Hemoglobin A1c (4.5-5.6) % Calcium (8.5-10.1) mg/dl 09/22/18 09/22/18 Range/Units 05:38 11:54 Lymph # (Auto) (1.2-3.4) K/uL PT (9.0-12.0) Seconds POC INR (0.9-1.1) INR (0.9-1.1) Glucose 104 H (70-99) mg/dl POC Glucose 128 H (70-99) Hemoglobin A1c (4.5-5.6) % Calcium 8.4 L (8.5-10.1) mg/dl (1) Dementia Alzheimer's disease onset: unspecified onset Dementia behavioral disturbance: without behavioral disturbance Dementia type: Alzheimer's disease Qualified Code(s): G30.9 - Alzheimer's disease, unspecified; F02.80 - Dementia in other diseases classified elsewhere without behavioral disturbance
--- NOTE | 2018-09-22 17:26 | Hospitalist Progress Note ---
Date of Service September 22, 2018 Assessment & Plan (1) Acute CVA (cerebrovascular accident): developed Left lung acute right facial droop, severe dysarthria, dysphagia, with drooling of saliva, dense right-sided paralysis, flaccid right arm/right leg Happened after admission: exact timing of acute stroke unable to determine MRI of brain: 1.9 cm focus of restricted diffusion identified in the left linn consistent with acute to subacute infarct. 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: MRI shows acute CVA involving left linn Marked right-sided facial droop right-sided dense paralysis, right hemineglect noted Continue neurochecks Neurology consulted, appreciate input Continue management as outlined above (3) National Institutes of Health (NIH) Stroke Scale dysarthria score 2, severe dysarthria; patient's speech is so slurred as to be unintelligible in the absence of or out of proportion to any dysphasia, or is mute/anarthric: With septal dysarthria, symptom was noted to be worsened this morning, Able to follow simple command Hard to understand articulation Speech pathology consulted (4) Chronic atrial fibrillation: Chronic anticoagulation on Coumadin, presented with therapeutic INR Discussed with mentions 6 weeks back her INR was 2.6 Continue to monitor PT/INR goal 23 Coumadin kept on hold as INR 3.1 Monitor shows rate controlled A. fib (5) Anticoagulant long-term use: Coumadin for chronic A. fib, INR therapeutic (6) Alzheimers disease: Baseline dementia, Oriented to person only, (7) Acute urinary retention: developed after acute CVA bladder scan shows residual urine > 400 in 2 different occasions [place] placed ordered for UA and culture if indicated voiding trial prior to discharge may need urology eval (8) Dementia: (9) Hypertension: Hold antihypertensive, including beta-indiana to allow permissive hypertension (10) Hyperlipidemia: Statin resumed after speech evaluation (11) CKD (chronic kidney disease), stage III: Creatinine at baseline: Continue monitor DVT prophylaxis: INR therapeutic Disposition: Lives at home with , needed assist in ADLs for advanced dementia Developed dense right-sided paralysis due to acute CVA PT OT evaluation requested Patient will need rehab Social service consulted for discharge planning Patient has been updated at bedside Subjective some improvement of rt facial droop noted r sided paralysis , speech a bit clear had speech eval , ordered Purred with necter thick tolerating well Physical Exam Constitutional: WD/WN, vitals as above no acute distress Eyes: PERRL, conjunctivae normal, anicteric sclerae Neck: trachea midline, no thyromegaly Respiratory: normal respiratory effort, lungs clear to auscultation Cardiovascular: RRR, no murmur, no edema Gastrointestinal (Abdomen): Inspection/Auscultation: normal bowel sounds Percussion/Palpation: abdomen soft; abdomen nontender Musculoskeletal: Extremities: + limited ROM of extremities (rt upper ext flaccid paralysis ) and + limited ROM of upper extremity (flaccid paralysis ) Skin: no rashes, warm and dry Neurologic: + focal motor deficit (left side CVA-leading to rt sided significant paralysis ) and awake Speech / Cognition: + abnormal speech (mild dysarthria ) and + abnormal cognition (baseline dementia ) Motor/Sensory: + abnormal movement (rt sided paralysis due to acute CVA ) Cranial Nerves: tongue midline Psychiatric: Orientation: alert and oriented to person (baseline dementia ) Eye Contact: good eye contact Affect: euthymic affect Results & Data Vital Signs (Past 12 Hours) Vital Signs Temp Pulse Resp BP Pulse Ox 09/22/18 11:38 36.8 C 50 L 19 146/71 H 92 09/22/18 10:54 36.5 C 53 L 18 149/78 H 93 09/22/18 06:39 36.7 C 54 L 16 130/74 91 (1) Dementia Alzheimer's disease onset: unspecified onset Dementia behavioral disturbance: without behavioral disturbance Dementia type: Alzheimer's disease Qualified Code(s): G30.9 - Alzheimer's disease, unspecified; F02.80 - Dementia in other diseases classified elsewhere without behavioral disturbance
[2018-09-23 06:59] LABS: Basophils # (auto) 0.01 K/uL (0-0.2); Basophils % (auto) 0.1 %; Eosinophils # (auto) 0.11 K/uL (0-0.5); Eosinophils % (auto) 1.6 %; Hematocrit (blood only) 40.8 % (37-47); Hemoglobin 13.8 g/dL (12.0-16.0); Immature Granulocytes # (auto) 0.03 K/uL (0.00-0.02); Immature Granulocytes % (auto) 0.4 %; Lymphocytes # (auto) 0.97 K/uL (1.2-3.4); Lymphocytes % (auto) 13.9 %; Mean Corpuscular Hgb Conc 33.8 g/dL (32-36); Mean Corpuscular Volume 93.2 fL (80-100); Mean Platelet Volume 10.5 fL (7.4-10.4); Monocytes # (auto) 0.52 K/uL (0.11-0.59); Monocytes % (auto) 7.4 %; Neutrophils # (auto) 5.34 K/uL (1.4-6.5); Neutrophils % (auto) 76.6 %; Platelet Count 143 K/uL (130-400); RDW Coefficient of Variation 12.8 % (11.5-14.5); RDW Standard Deviation 43.7 fL (36.4-46.3); Red Blood Count 4.38 M/uL (4.2-5.4); White Blood Count 6.98 K/uL (4.8-10.8)
[2018-09-23 07:12] LABS: INR 2.2 (0.9-1.1); Prothrombin Time 21.5 Seconds (9.0-12.0)
[2018-09-23 07:33] LABS: Calcium 8.2 mg/dl (8.5-10.1); Creatinine Clr Calc Pharmacy 44.9 ml/min; Potassium 3.9 mmol/L (3.5-5.1)
[2018-09-23] MEDS: ATORVASTATIN 40 MG TAB PO SCH (09:13)
[2018-09-23] MEDS: ASPIRIN 81 MG ECTAB PO SCH (09:14)
[2018-09-23] MEDS: CITALOPRAM 20 MG TAB PO SCH (09:14)
[2018-09-23] MEDS: PANTOprazole 40 MG TAB PO SCH (09:14)
[2018-09-23] MEDS: LEVOTHYROXINE SODIUM 88 MCG TABLET PO SCH (09:14)
[2018-09-23] MEDS: D5W AND LACTATED RINGERS 1,000 ML IV SCH (09:15)
--- NOTE | 2018-09-23 14:20 | Neurology Progress Note ---
Date of Service September 23, 2018 Assessment & Plan (1) Acute CVA (cerebrovascular accident): 1. continue coumadin - INR 2.0-3.0 2. aspirin 300 currently being given OH- switch to 81 mg oral when able to tolerate 3. namenda and aricept on hold at this point- likely not beneficial at this stage of dementia 4. optimize lipid profile and HTN- avoid hypo tension 5. PT/OT speech for discharge needs 6. she will need placement at this point will not be appropriate for return home- working on [employer] 7. CT repeated no hemorrhagic conversion 8. ok to discharge from neurology perspective- will sign off for now but will be available as needed. follow up in 4-6 weeks after discharge with neurology Colette Berkowitz PAC schedule (2) Dementia: 1. namenda and aricept on hold likely not beneficial at this stage of dementia Supervising Physician Co-Signing Physician Notes I have seen and discussed above patient with Dr Colette Cummins, neurology Pt seen and examined. Awake, follows simple commands.Dysarthric decreased R NLF RUE o RLE trace. Imp L pontine infarct, continue asa, coumadin. Will sign off. ARSEN Cummins MD Sandra Wong is an 83 year old female with PMH- HTN, chronic AF (on Coumadin), Alzheimer's , HLD, CKD III, hypothyroidism, GERD and venous insufficiency who presents with slurred speech and right-sided weakness. She lives with at home and has advanced dementia at baseline. INR was slightly supratherapeutic at 3.1 on admission. Suzi tele-stroke was consulted in the ED, but felt that TPA was contraindicated due to elevated INR. She currently is lying in bed and her is bedside. He states it is his understanding she will be discharged to rehab. ROS unable to obtain due to dementia. fed her both breakfast and lunch she did well with soft. PT/OT have recommended rehab prior to going home. [facility] is their first choice. She is lying in bed but pleasant. Physical Exam Physical Exam: Gen: alert NAD lungs CTA CV irregular right sided facial droop right UE flaccid right LE knee extension 4/5, plantar flex ext 4/5 left UE hand conveyor system dispatcher bicep tricep 5/5, hip flex 5/5 oriented to self pleasant Results & Data Vital Signs (Past 12 Hours) Vital Signs Temp Pulse Pulse Resp BP Pulse Ox 09/23/18 11:36 36.7 C 54 L 18 153/72 H 95 09/23/18 08:00 50 L 09/23/18 07:26 36.6 C 51 L 18 177/67 H 96 09/23/18 03:54 36.4 C L 55 L 18 146/61 H 96 Laboratory Results Abnormal lab results 09/22/18 09/22/18 09/23/18 Range/Units 16:00 20:13 06:15 MPV 10.5 H (7.4-10.4) fL Immature Gran # (Auto) 0.03 H (0.00-0.02) K/uL Lymph # (Auto) 0.97 L (1.2-3.4) K/uL PT (9.0-12.0) Seconds INR (0.9-1.1) Glucose (70-99) mg/dl POC Glucose 114 H 116 H (70-99) Calcium (8.5-10.1) mg/dl 09/23/18 09/23/18 Range/Units 06:15 06:15 MPV (7.4-10.4) fL Immature Gran # (Auto) (0.00-0.02) K/uL Lymph # (Auto) (1.2-3.4) K/uL PT 21.5 H (9.0-12.0) Seconds INR 2.2 H (0.9-1.1) Glucose 104 H (70-99) mg/dl POC Glucose (70-99) Calcium 8.2 L (8.5-10.1) mg/dl Diagnostic Findings no new imaging (1) Dementia Alzheimer's disease onset: unspecified onset Dementia behavioral disturbance: without behavioral disturbance Dementia type: Alzheimer's disease Qualified Code(s): G30.9 - Alzheimer's disease, unspecified; F02.80 - Dementia in other diseases classified elsewhere without behavioral disturbance
[2018-09-23] MEDS ORDERED: WARFARIN SOD 5 MG TAB PO SCH (16:00)
[2018-09-23 19:16] LABS: Appearance Urine Cloudy (Clear); Bacteria Urine Automated 4+ (Negative); Bilirubin Urine Negative (Negative); Blood Urine 2+ (Negative); Color Urine Yellow; Epithelial Cell Urine Auto 0-5 /lpf (0-5); Glucose Urine UA Negative (Negative); Ketones Urine Negative (Negative); Leukocyte Esterase Urine 2+ (Negative); Nitrite Urine Negative (Negative); Protein Urine Negative (Negative); Specific Gravity Urine 1.014 (1.000-1.030); Urobilinogen Urine Negative (Negative)
--- NOTE | 2018-09-23 19:22 | Hospitalist Progress Note ---
Date of Service September 23, 2018 Assessment & Plan (1) Acute CVA (cerebrovascular accident): presented with slurred speech /rt sided weakness CT of head on admission 09/20/18 was negative for acute CVA symptom worsened overnight 09/21/18 developed acute right facial droop, severe dysarthria, dysphagia, with drooling of saliva, dense right-sided paralysis, flaccid right arm/right leg-changed from admission exam Happened after admission: exact timing of acute stroke unable to determine MRI of brain:09/21/18 1.9 cm focus of restricted diffusion identified in the left linn consistent with acute to subacute infarct. 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: MRI shows acute CVA involving left linn Marked right-sided facial droop right-sided dense paralysis, right hemineglect noted Continue neurochecks Neurology consulted, appreciate input Continue management as outlined above (3) National Institutes of Health (NIH) Stroke Scale dysarthria score 2, severe dysarthria; patient's speech is so slurred as to be unintelligible in the absence of or out of proportion to any dysphasia, or is mute/anarthric: Due to Acute left sided CVA on admission noted to have slight dysarthria overnight on 09/21/18 -worsening of neurological symptom -causing severe dysarthia , unable to understand words last 24 hrs some improvement of speech noted able to speak more clearly today Able to follow simple command Speech pathology consulted-appreciate input (4) Chronic atrial fibrillation: Chronic anticoagulation on Coumadin, presented with therapeutic INR Discussed with mentions 6 weeks back her INR was 2.6 cont coumadin Continue to monitor PT/INR goal 23 CT head non contrast on 09/22/18 ; shows no evidence of Hge Beta-indiana kept on hold to allow permissive hypertension in the setting of an acute CVA Monitor shows rate controlled A. fib (5) Anticoagulant long-term use: Coumadin for chronic A. fib, INR therapeutic (6) Alzheimers disease: Baseline dementia, Oriented to person only,able to follow simple commands needs assistance in ADl's developed worsening of mental status /metabolic encephalopathy due to acute CVA mental status gradually improved to baseline today oriented to person only very pleasant responding to simple questions given dysphagia -pt will need to essential meds : Aspirin , statin , Beta indiana , coumadin appreciate neurology input Namenta d/niki as it may not provide any benefit at this stage of bementia (7) Dementia: (8) Hypertension: Hold antihypertensive, including beta-indiana to allow permissive hypertension (9) Hyperlipidemia: ordered Atorvastatin 40 mg daily PO -as able to tolerated oral meds (10) CKD (chronic kidney disease), stage III: Creatinine at baseline: Continue monitor DVT prophylaxis: INR therapeutic Disposition: Lives at home with , needed assist in ADLs for advanced dementia Developed dense right-sided paralysis due to acute CVA PT OT evaluation requested Patient will need rehab- [facility] following for discharge planing Supervising Physician Co-Signing Physician Notes I have seen and discussed above patient with Dr Colette Cummins, neurology Pt seen and examined. Awake, follows simple commands.Dysarthric decreased R NLF RUE o RLE trace. Imp L pontine infarct, continue asa, coumadin. Will sign off. ARSEN Cummins MD Subjective pt seen in room 233/1 present at bedside pt's facial droop noted to be improved pt is smiling , alert , able to answer simple questions /no dysarthria noted per -pt's mental status improved to approx baseline still has rt upper ext flaccid paralysis able to push down rt foot against resistance, wiggle toes -improvement from yesterday tolerating Purred diet , finished pudding in breakfast as fed her , no choking or aspiration noted appetite is poor -which is been chronic per discussed rehab options with -Mr Vidal is familiar with [facility] updated 3 hrs /day therapy 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 -like [facility] will be better will discuss options with CM Physical Exam Constitutional: WD/WN, vitals as above no acute distress elderly female , baseline dementia , awake,very pleasant , smiling when asked questions rt facial droop noted to be markedly improved Eyes: PERRL, conjunctivae normal, anicteric sclerae ENMT: Tongue midline , mild rt sided facial droop ( improved from prior ) ,moist oral mucosa Neck: trachea midline, no thyromegaly Respiratory: normal respiratory effort, lungs clear to auscultation Cardiovascular: RRR, no murmur, no edema Gastrointestinal (Abdomen): Inspection/Auscultation: normal bowel sounds Percussion/Palpation: abdomen soft; abdomen nontender Musculoskeletal: Extremities: + limited ROM of extremities (rt upper ext flaccid paralysis ) and + limited ROM of upper extremity (flaccid paralysis ) Right rt sided upper ext flaccid paralysis , no resistance against gravity lower ext rt side some strength 1-2/5 Skin: no rashes, warm and dry Neurologic: + focal motor deficit (left side CVA-leading to rt sided significant paralysis ) and awake Speech / Cognition: + abnormal speech (mild dysarthria ) and + abnormal cognition (baseline dementia ) Motor/Sensory: + abnormal movement (rt sided paralysis due to acute CVA ) Cranial Nerves: tongue midline Psychiatric: Orientation: alert and oriented to person (baseline dementia ) Eye Contact: good eye contact Affect: euthymic affect Results & Data Vital Signs (Past 12 Hours) Vital Signs Temp Pulse Pulse Resp BP Pulse Ox 09/23/18 15:57 36.8 C 84 18 149/68 H 97 09/23/18 11:36 36.7 C 54 L 18 153/72 H 95 09/23/18 08:00 50 L 09/23/18 07:26 36.6 C 51 L 18 177/67 H 96 (1) Alzheimers disease Alzheimer's disease onset: unspecified onset Dementia behavioral disturbance: without behavioral disturbance Qualified Code(s): G30.9 - Alzheimer's disease, unspecified; F02.80 - Dementia in other diseases classified elsewhere without behavioral disturbance (2) Dementia Alzheimer's disease onset: unspecified onset Dementia behavioral disturbance: without behavioral disturbance Dementia type: Alzheimer's disease Qualified Code(s): G30.9 - Alzheimer's disease, unspecified; F02.80 - Dementia in other diseases classified elsewhere without behavioral disturbance (3) Hyperlipidemia Hyperlipidemia type: unspecified Qualified Code(s): E78.5 - Hyperlipidemia, unspecified (4) Hypertension Hypertension type: unspecified Qualified Code(s): I10 - Essential (primary) hypertension
--- NOTE | 2018-09-23 20:42 | Hospitalist Progress Note ---
Date of Service September 23, 2018 Subjective UA positive. Starting on Rocephin.Will Follow [employer]. Results & Data Vital Signs (Past 12 Hours) Vital Signs Temp Pulse Pulse Resp BP Pulse Ox 09/23/18 20:23 37.0 C 55 L 18 176/71 H 96 09/23/18 16:00 60 09/23/18 15:57 36.8 C 84 18 149/68 H 97 09/23/18 11:36 36.7 C 54 L 18 153/72 H 95
[2018-09-23] MEDS ORDERED: cefTRIAXone SODIUM 1,000 MG in DEXTROSE 5% 50 ML IV SCH (21:00)
[2018-09-24] MEDS: LEVOTHYROXINE SODIUM 88 MCG TABLET PO SCH (06:16)
[2018-09-24 07:59] VITALS: TEMP 98.6
--- NOTE | 2018-09-24 09:11 | Hospitalist Progress Note ---
Date of Service September 24, 2018 Assessment & Plan (1) Acute CVA (cerebrovascular accident): Left acute right facial droop, severe dysarthria, dysphagia, with drooling of saliva, dense right-sided paralysis, flaccid right arm/right leg Happened after admission: Exact timing of acute stroke unable to determine MRI of brain: 1.9 cm focus of restricted diffusion identified in the left linn consistent with acute to subacute infarct. No additional foci of acute ischemia noted, there is no hemorrhage or adjusted to previous midline shift -S/P Aspirin. Continue with Aspirin, Atorvastatin 40 mg q HS -On coumadin with goal INR 2-3 -Speech, PT/OT on board-to be continued on discharge -Work up- MRI brain as above, Lipid panel- LDL 96, Repeat CT head- 09/22/18- No new changes, Subacute left linn infarct, Left temporal fossa meningioma unchanged CTA head/Neck- Meningioma, benign and no acute changes, no stenosis; Echo- EF 60-65%, mild present, No wall motion abnormalities, No shunting -Neurology on board. 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: MRI shows acute CVA involving left linn Marked right-sided facial droop right-sided dense paralysis, right hemineglect noted -Mx as above (3) National Institutes of Health (NIH) Stroke Scale dysarthria score 2, severe dysarthria; patient's speech is so slurred as to be unintelligible in the absenc e of or out of proportion to any dysphasia, or is mute/anarthric: -Speech on board- Pureed and nectar thick liquids -To be continued on discharge (4) Chronic atrial fibrillation: -Chronic anticoagulation on Coumadin, presented with therapeutic INR -Continue with coumadin with INR 2.2 today -Beta-indiana was kept on hold to allow permissive hypertension in the setting of an acute CVA--> Ok to restart -Monitor shows rate controlled A. fib (5) Anticoagulant long-term use: Coumadin for chronic A. fib, INR therapeutic (6) Acute urinary retention: Failed voiding trial. Bahena's catheter was reinserted yesterday. Continue with Bahena's catheter on discharge. Will need to do voiding trial outpatient (7) Alzheimers disease: Baseline dementia, Oriented to person only, (8) Dementia: (9) Hypertension: (10) Hyperlipidemia: Restarted statin as tolerating p.o. (11) CKD (chronic kidney disease), stage III: Creatinine at baseline: Continue monitor DVT prophylaxis: INR therapeutic Disposition: Lives at home with , needed assist in ADLs for advanced dementia PT/OT on board Okay to discharge to [facility] today by bedsideagreeable with plan Subjective Patient is pleasant, cooperative, awake, alert, disoriented x3 Does have right sided weakness, facial droop, aphasia. by bedsidemental status is at her baseline Physical Exam Physical Exam: GENERAL-awake, alert, disoriented x3, pleasant, not in acute distress LUNGS- Air entry bilaterally equal. No rales, rhonchi, crackles, wheezes heard. HEART- Regular rate and rhythm. No murmurs ABDOMEN- Soft, non tender, non distended, Bowel sounds heard. EXTREMITIES- Good peripheral pulses, no edema NEUROMUSCULAR- + focal motor deficit (left side CVA-leading to rt sided significant paralysis ) and awake Speech / Cognition: + abnormal speech (mild dysarthria ) and + abnormal cognition (baseline dementia ) Motor/Sensory: + abnormal movement (rt sided paralysis due to acute CVA ) Cranial Nerves: tongue midline Results & Data Vital Signs (Past 12 Hours) Vital Signs Temp Pulse Pulse Resp BP Pulse Ox 09/24/18 07:58 37.0 C 58 L 18 139/73 09/24/18 07:30 52 L 09/24/18 06:58 36.9 C 53 L 18 145/67 H 96 09/24/18 04:51 36.8 C 57 L 18 132/68 95 09/23/18 23:18 36.5 C 55 L 18 168/68 H 91 09/23/18 22:20 53 L (1) Dementia Alzheimer's disease onset: unspecified onset Dementia behavioral disturbance: without behavioral disturbance Dementia type: Alzheimer's disease Qualified Code(s): G30.9 - Alzheimer's disease, unspecified; F02.80 - Dementia in other diseases classified elsewhere without behavioral disturbance
[2018-09-24] MEDS: ASPIRIN 81 MG ECTAB PO SCH (09:29)
[2018-09-24] MEDS: CITALOPRAM 20 MG TAB PO SCH (09:29)
[2018-09-24] MEDS: PANTOprazole 40 MG TAB PO SCH (09:29)
[2018-09-24] MEDS: ATORVASTATIN 40 MG TAB PO SCH (09:29)
[2018-09-24 11:48] VITALS: BP 135/76; PULSE 72; O2SAT 98
--- NOTE | 2018-09-24 11:56 | Fluoroscopy Report ---
FL video swallow CLINICAL HISTORY: 83 years-old Female with assess for aspiration, coughs with thin liquids. Chronic cough with dysphagia. History of moderate sized hiatal hernia. TECHNIQUE: Video fluoroscopic evaluation of swallowing was performed in the AP and lateral projection s by the speech pathology staff. The patient is fed nectar-thick, thin liquid barium and honey thick consistencies. Pudding and cracker with paste also administered. FLUOROSCOPY TIME: 1.9. COMPARISON STUDY: CT abdomen and pelvis 08/22/2015. FINDINGS: Moderate amount of aspiration with thin liquid barium. Trace aspiration with nectar thick c onsistency. No aspiration with pudding or solid consistencies. Degenerative changes noted about the s pine. IMPRESSION: 1. Aspiration as above. 2. Please see the speech pathologist report for detailed findings and recommendations. Electronically signed by: Florencio Hackett M.D. 09/24/2018 11:54 AM
[2018-09-24] MEDS ORDERED: STROKE PATIENT DISCHARGE STA (13:04)
--- NOTE | 2018-09-24 13:04 | Discharge Summary ---
Date of Service September 24, 2018 Admission HPI Per Admitting Provider This is an 83-year-old female with a PMH of HTN, chronic atrial fibrillation (on Coumadin), Alzheimer's disease, HLD, CKD III, hypothyroidism, GERD and venous insufficiency who presents with slurred speech and right-sided weakness beginning around 11 this morning. Patient lives with at home and has advanced dementia at baseline. Is oriented to self and sometimes to place, per daughter at bedside. Daughter was with her mom this morning and thought she seemed fine. Patient woke up, ambulated independently and ate breakfast. Daughter started noting some more confusion but thought her mom was just tired. By 11 AM, patient was slurring speech and had difficulty ambulating. EMS was called to bring patient to ED for further evaluation. ROS is limited due to patient's cognitive status, but denies any pain at this time. In ED, patient was found to have stable vital signs as well as unremarkable lab work. INR is slightly supratherapeutic at 3.1. CT head with slight indistinctiveness of left frontal lobe consistent with possible acute infarct versus artifact. CTA head/neck unremarkable. Suzi tele-stroke was consulted in the ED, but felt that TPA was contraindicated due to elevated INR. Will admit patient for further stroke work-up including MRI of brain as well as echo with bubble study. No known history of stroke. Does not take baby aspirin. Principal Diagnosis 1 Acute CVA, left pontine infarct 2. Residual right-sided paralysis, dysarthria, facial droop Secondary diagnosis on discharge 1. Chronic atrial fibrillation on anticoagulation 2. Urinary retention on Bahena's catheter inserted during this admission 3. Alzheimer's dementia 4. Hypertension 5. Hyperlipidemia 6. Chronic kidney disease stage III Discharge Exam GENERAL-awake, alert, disoriented x3, pleasant, not in acute distress LUNGS- Air entry bilaterally equal. No rales, rhonchi, crackles, wheezes heard. HEART- Regular rate and rhythm. No murmurs ABDOMEN- Soft, non tender, non distended, Bowel sounds heard. EXTREMITIES- Good peripheral pulses, no edema NEUROMUSCULAR- + focal motor deficit (left side CVA-leading to rt sided significant paralysis ) and awake Speech / Cognition: + abnormal speech (mild dysarthria ) and + abnormal cognition (baseline dementia ) Motor/Sensory: + abnormal movement (rt sided paralysis due to acute CVA ) Cranial Nerves: tongue midline Discharge Data Allergies Allergy/AdvReac Type Severity Reaction Status Date / Time No Known Allergies Allergy Unverified 09/20/18 12:58 Consultations 09/20/18 13:38 ED Decision to Admit Stat 09/20/18 16:28 Consult Case Management - Discharge Planning Routine Consult Case Management - Discharge Planning Routine Consult Neurology Routine 09/23/18 10:25 Consult Urology Routine Ordered Studies 09/20/18 12:05 CT head/brain wo con Stat 09/20/18 12:41 CT angio head w con Stat CT angio neck with con Stat 09/21/18 16:28 MR angio head wo con Urgent MR brain wo/w con Routine 09/22/18 09:00 CT head/brain wo con Routine 09/24/18 11:00 FL video swallow Routine Hospital Course (1) Acute CVA (cerebrovascular accident): Left acute right facial droop, severe dysarthria, dysphagia, with drooling of saliva, dense right-sided paralysis, flaccid right arm/right leg Happened after admission: Exact timing of acute stroke unable to determine MRI of brain: 1.9 cm focus of restricted diffusion identified in the left linn consistent with acute to subacute infarct. No additional foci of acute ischemia noted, there is no hemorrhage or adjusted to previous midline shift -S/P Aspirin. Continue with Aspirin, Atorvastatin 40 mg q HS -On coumadin with goal INR 2-3 -Speech, PT/OT on board-to be continued on discharge -Work up- MRI brain as above, Lipid panel- LDL 96, Repeat CT head- 09/22/18- No new changes, Subacute left linn infarct, Left temporal fossa meningioma unchanged CTA head/Neck- Meningioma, benign and no acute changes, no stenosis; Echo- EF 60-65%, mild present, No wall motion abnormalities, No shunting -Neurology on board. 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: MRI shows acute CVA involving left linn Marked right-sided facial droop right-sided dense paralysis, right hemineglect noted -Mx as above (3) National Institutes of Health (NIH) Stroke Scale dysarthria score 2, severe dysarthria; patient's speech is so slurred as to be unintelligible in the absence of or out of proportion to any dysphasia, or is mute/anarthric: With septal dysarthria, symptom was noted to be worsened this morning, Able to follow simple command Hard to understand articulation Speech pathology consulted (4) Chronic atrial fibrillation: -Chronic anticoagulation on Coumadin, presented with therapeutic INR -Continue with coumadin with INR 2.2 today -Beta-indiana was kept on hold to allow permissive hypertension in the setting of an acute CVA--> Ok to restart -Monitor shows rate controlled A. fib (5) Anticoagulant long-term use: Coumadin for chronic A. fib, INR therapeutic (6) Acute urinary retention: Failed voiding trial. Bahena's catheter was reinserted yesterday. Continue with Bahena's catheter on discharge. Will need to do voiding trial outpatient (7) Alzheimers disease: Baseline dementia, Oriented to person only,able to follow simple commands needs assistance in ADl's -Mental status back to baseline per -Pleasant, no agitative episodes -Namenda discontinued as no benefit at this stage per neurology given dysphagia -pt will need to essential meds : Aspirin , statin , Beta indiana , coumadin appreciate neurology input Namenta d/niki as it may not provide any benefit at this stage of bementia (8) Dementia: (9) Hypertension: Held antihypertensive, including beta-indiana to allow permissive hypertension Now okay to restart it (10) Hyperlipidemia: Restarted statin as tolerating p.o.now (11) CKD (chronic kidney disease), stage III: Creatinine at baseline: Continue monitor NUTRITION Pureed with nectar thick liquids Per speech therapy Speech therapy to be continued on discharge DVT prophylaxis: INR therapeutic Disposition: Lives at home with , needed assist in ADLs for advanced dementia PT/OT on board Okay to discharge to [facility] today by bedsideagreeable with plan Total Time Total Time Spent Total Time Spent (In Minutes): 40 minutes Discharge Plan Discharge Items Patient Disposition: Transfer Inpatient Rehab Fac Reason For Visit: DYSARTHRIA, STROKE WORK UP Discharge Diagnosis: ACUTE CVA with residual right sided weakness, dysarthria, facial droop Discharge Goals: Decrease discomfort and Therapeutic intervention Activity: As commented below Activity Comment: CONTINUE SPEECH THERAPY /PHYSICAL THERAPY /OCCUPATIONAL THERAPY AT REHAB Non-emergency contact: Primary Care Provider Call non-emergency contact if: you have any medication questions Follow-up/Referrals: Rigoberto Becerril PA-C [Physician Contact Worker] - (FOLLOW UP IN 4-6 WEEKS ) Diet: Heart Healthy Diet Texture: Pureed (blended smooth) Liquid Consistency: [place] thick Addtl Provider Instructions: 1. CONTINUE TO TAKE ASPIRIN 81 MG DAILY 2. ATORVASTATIN 40 MG DAILY 3. Discontinued Namenda as unlikely to benefit at this stage of dementia NEUROLOGY FOLLOW UP WITH RIGOBERTO BECERRIL PA-C IN 4-6 WEEKS Risk Factors for Stroke: You can reduce your chances of stroke by working with your medical provider to adopt a healthy lifestyle. Some specific ways to lower your chance of stroke are: * If you are a smoker, now is the time to stop smoking cigarettes * If you are diabetic, improve the control of your blood sugars * Avoid excessive amounts of alcohol * Control high blood pressure * Lose weight if you are overweight * Be sure to lead an active lifestyle * Eat a healthy diet low in salt, cholesterol and fat You should know about other risk factors for stroke that you are unable to control. These include: * Age 55 years or older * Male gender * Certain racial groups: , or / * Family History of Stroke, Mini stroke or Heart Attack * Sickle Cell Disease Follow Up: It is important for you to keep your follow up appointments with your medical provider. Who to Call and When: Medical Emergencies: Call 911 immediately if you experience any of the following warning signs and symptoms of Stroke: * Sudden numbness or weakness of the face, arm or leg, especially on one side of the body * Sudden confusion, trouble speaking or understanding * Sudden trouble seeing in one or both eyes * Sudden trouble walking, dizziness, loss of balance or coordination * Sudden severe headache with no cause Do not delay calling 911 if you experience any warning signs or symptoms of a stroke. Delay in seeking medical attention may affect what treatments can be given to you. . Prescriptions: New aspirin [Ecotrin Low Strength] 81 mg Tablet,Delayed Release (Dr/Ec) 81 mg PO QAM 30 Days Qty: 30 RF: 0 atorvastatin 40 mg Tablet 40 mg PO QAM 30 Days Qty: 30 RF: 0 Continued amlodipine [Norvasc] 5 mg Tablet 5 mg PO DAILY RF: 0 warfarin [Coumadin] 6 mg Tablet 6 mg PO DAILY RF: 0 citalopram 20 mg Tablet 20 mg PO DAILY RF: 0 pantoprazole 40 mg Tablet,Delayed Release (Dr/Ec) 40 mg PO BID RF: 0 levothyroxine 88 mcg Capsule 88 mcg PO DAILY RF: 0 Discontinued atorvastatin [Lipitor] 10 mg Tablet PO DAILY RF: 0 donepezil 10 mg Tablet 10 mg PO DAILY RF: 0 hydralazine 25 mg Tablet 25 mg PO BID RF: 0 raloxifene 60 mg Tablet 60 mg PO DAILY RF: 0 memantine 5 mg Tablet 5 mg PO BIDM RF: 0 cholecalciferol (vitamin D3) [Vitamin D3] 1,000 unit Tablet PO BID RF: 0 Stand-Alone Forms: [facility] Discharge Orders: Discharge Order (Routine); Ordered 09/24/18 Ordered By: Danna Holley Skilled Items Patient informed of condition?: Yes DNR: Yes Discharge Level of Care: Acute rehab Communicable Disease: No Discharge Prognosis: Stable Admission Data Admit Date/Time: 09/20/18 14:17 Attending Provider: Danna Holley Admit Provider: Leisa Gómez Primary Care Provider: PCP,NO Other Providers: Rigoberto Becerril ; Cuco Ayala ; Rigoberto Cummins ; Derek Thomas ; Gurpreet Carrillo ; Leisa Gómez ; Bea Marcum Service: Telemetry Other Pending Studies at Discharge: No
== END 2018-09-24 14:45 | DRG 65 ==
LOC: ED 12:12 → SUATTDRO 14:17 → 2S 14:17

== ENCOUNTER 2020-05-13 17:40 | Inpatient (IN) ==
--- NOTE | 2020-05-13 18:40 | XRay Report ---
XR hip RT 2V w pelvis CLINICAL HISTORY: Right hip pain status post trauma COMPARISON: None. DISCUSSION: There is a subcapital right hip fracture. There is no dislocation. There is no SI joint d iastases. There is no symphysis diastases. IMPRESSION: Subcapital right hip fracture. ACT 112: Negative or not required by law. Electronically signed by: Gutierrez Mcpherson M.D. 05/13/2020 6:39 PM
--- NOTE | 2020-05-13 18:41 | XRay Report ---
XR femur RT 2V routine CLINICAL HISTORY: Right femur pain status post trauma COMPARISON: None. DISCUSSION: The bones are osteopenic. There is a subcapital right hip fracture. There is no dislocati on. IMPRESSION: Subcapital right hip fracture. ACT 112: Negative or not required by law. Electronically signed by: Gutierrez Mcpherson M.D. 05/13/2020 6:40 PM
--- NOTE | 2020-05-13 18:59 | Emergency Department Note ---
Impression & Plan Fall, Fracture of right hip ED Provider Note Provider: Silvestre Davis MD DATE OF SERVICE:05/13/2020 CHIEF COMPLAINT: Right leg pain HISTORY OF PRESENT ILLNESS: Patient is a 85-year-old female history of CKD, atrial fibrillation, Alzheimer's disease, CVA with some resultant right-sided deficits presented today via ambulance from home after a fall that happened about 24 hours ago. Patient's present provides majority of the history is a patient self unable to recall and provide significant history. He states yesterday they are walking in behind her to help support her and she lost her balance and slid down to the ground on the right side. Patient states he broke her fall underneath of her and tried to hold her up but was unsuccessful. States she did not strike her head or seem to suffer significant injury at that time. Was able to bear little bit of weight on her legs at that point and did not seem to significantly injured so he watched her overnight. Ate okay today but then started complain of some pain with movement of the right leg and thigh. No additional falls reported. Patient herself does complain some pain when trying to move the right leg before what I can gather does not really seem to be in any other discomfort. Does look around the room and appears somewhat anxious. reports Sissy has some chronic weakness of the right side. REVIEW OF SYSTEMS: Unable to obtain secondary to her dementia PAST MEDICAL HISTORY: As noted above MEDICATIONS: Reviewed home medication list SOCIAL HISTORY: Lives at home with PHYSICAL EXAM: GENERAL: alert in no acute distress on stretcher Head: normocephalic and atraumatic EYES: No injection, discharge or icterus. NECK: Trachea midline. Supple. LUNGS: Airway patent. No retractions. Breath sounds clear HEART: Regular rate and rhythm. No chest wall tenderness ABDOMEN: Soft and non-tender, without guarding or rebound. SKIN: Acyanotic, warm, dry, without rashes EXTREMITIES: Without swelling, tenderness or deformity except for pain with passive range of motion of the right lower extremity in the right hip area. Some slight tenderness at the right greater trochanter. No obvious bruising or signs of trauma in this area. 1+ DP pulse on the right foot does not appear cyanotic or cold. NEUROLOGICAL: No aphasia. No facial droop or slurred speech. Very poor historian secondary to her dementia regarding recent events where she is at. Moves all extremities with pain with movement in the right thigh to hip region. EK bpm normal sinus rhythm without PVC or PAC. No acute ST segment elevation or depression. Some baseline artifact noted. CONTINUOUS CARDIAC MONITORING: was ordered and showed a heart rate of 62 bpm in normal sinus rhythm GCS 14 at baseline per Patient's laboratory studies and imaging reviewed. Differential includes Fracture, dislocation, contusion, intra-abdominal, pneumothorax, intrathoracic, intracranial, neurologic, compartment syndrome, rha bdomyolysis, as well as other pathologies. IMPRESSION/MEDICAL DECISION MAKING: Patient presents after a minor mechanical fall yesterday according to and strike her head. Has been complaining of some right hip pain today and does have pain with passive range of motion here in this area. X-ray of the pelvis and right femur was obtained showing evidence of right subcapital hip fracture. Neuro intact in the right leg without apparent vascular compromise. No significant other tenderness appreciated on exam. No significant trauma to the head or evidence of trauma and do not leave any additional imaging of the head at this time. Basic labs and EKG and chest x-ray obtained as well as Covid test for need for operative management of this injury. Hospitalist team be contacted and orthopedics made aware of the patient. EKG without significant abnormality. Laboratory studies without significant anemia or leukocytosis. INR is elevated to begin she is on Coumadin at 4.1. No significant renal dysfunction or electrolyte abnormality. Urine is questionable for possible infection but will defer treatment to the hospitalist. Orthopedics evaluated here in the emergency department and will consider operative repair. Hospitalist contacted for admission. Patient resting comfortably is not given significant pain medications here in the ER did take some Tylenol shortly before coming in. DIAGNOSIS: Fall, right hip fracture DISPOSITION: Hospitalist will evaluate Patient's present and agrees with plan. Past Med/Surg History Medical History Alzheimers disease Anticoagulant long-term use Chronic atrial fibrillation CKD (chronic kidney disease), stage III GERD (gastroesophageal reflux disease) Hyperlipidemia Hypertension Lupus erythematosus Lupus erythematosus based on skin biopsy - labs negative Venous insufficiency Surgical History History of cataract surgery History of partial hysterectomy Family History Other Diabetes Social History Smoking Status: Unknown if ever smoked Preferred Language: Italian Communication Ability: Impaired Network Engineer Required: No Beliefs That Will Affect Care: None marital status: Current Living Situation: Spouse Current Living Situation Comment: per report from ER nurse current occupational status: retired Feels Safe at Home: Yes Assistive Devices: None Allergies Allergies Allergy/AdvReac Type Severity Reaction Status Date / Time No Known Allergies Allergy Verified 05/13/20 19:10 Home Meds Home Medications Medication Instructions Recorded Confirmed amlodipine 2.5 mg PO DAILY 05/13/20 05/13/20 aspirin [Aspirin Low Dose] 81 mg PO DAILY 05/13/20 05/13/20 atorvastatin 40 mg PO DAILY 05/13/20 05/13/20 citalopram 20 mg PO DAILY 05/13/20 05/13/20 ferrous sulfate 325 mg PO QDB 05/13/20 05/13/20 levothyroxine 88 mcg PO DAILY 05/13/20 05/13/20 sennosides [senna] 8.6 mg PO DAILY 05/13/20 05/13/20 warfarin See Rx Instructions .ROUTE .COMPLEX 05/13/20 05/13/20 Results & Data (ED) Vital Signs Vital Signs - 24 hr 05/13/20 17:48 Temperature 36.7 C Temperature Source Oral Pulse Rate 68 Respiratory Rate 16 Respiratory Effort / Characteristics Non-Labored Respiratory Depth Normal Blood Pressure 135/68 Blood Pressure Mean 90 Pulse Oximetry 96 Oxygen Delivery Method Room Air Sepsis Recent Fever Within 48 Hours No Sepsis New/Unexplained Change in Mental Status N/A Sepsis Action Taken by Nursing No Action Required Laboratory Data Result diagrams: 05/13/20 19:17 05/13/20 19:17 Lab Results 05/13/20 05/13/20 05/13/20 Range/Units 19:17 19:17 19:17 WBC 7.96 (4.8-10.8) K/uL RBC 4.21 (4.2-5.4) M/uL Hgb 12.4 (12.0-16.0) g/dL Hct 37.2 (37-47) % MCV 88.4 (80-100) fL MCH 29.5 (25-34) pg MCHC 33.3 (32-36) g/dL RDW Std Deviation 46.6 H (36.4-46.3) fL RDW Coeff of Hilda 14.9 H (11.5-14.5) % Plt Count 163 (130-400) K/uL MPV 9.7 (7.4-10.4) fL Immature Gran % (Auto) 0.1 % Neut % (Auto) 75.6 % Lymph % (Auto) 11.3 % [place] % (Auto) 8.8 % Eos % (Auto) 4.1 % Baso % (Auto) 0.1 % Neut # (Auto) 6.01 (1.4-6.5) K/uL Lymph # (Auto) 0.90 L (1.2-3.4) K/uL [place] # (Auto) 0.70 H (0.11-0.59) K/uL Eos # (Auto) 0.33 (0-0.5) K/uL Baso # (Auto) 0.01 (0-0.2) K/uL Immature Gran # (Auto) 0.01 (0.00-0.02) K/uL PT 40.1 H (9.0-12.0) Seconds INR 4.1 H (0.9-1.1) APTT 63.7 H* (21.0-31.0) Seconds PTT Ratio 2.3 Sodium (136-145) mmol/L Potassium (3.5-5.1) mmol/L Chloride (98-107) mmol/L Carbon Dioxide (21-32) mmol/L Anion Gap (3-11) BUN (7-18) mg/dl Creatinine (0.6-1.2) mg/dl Est Cr Clr Drug Dosing ml/min Est GFR ( Amer) Est GFR (Non-Af Amer) BUN/Creatinine Ratio (10-20) Glucose (70-99) mg/dl Calcium (8.5-10.1) mg/dl Urine Color Urine Appearance (Clear) Urine pH (4.5-7.5) Ur Specific [place] (1.000-1.030) Urine Protein (Negative) Urine Glucose (UA) (Negative) Urine Ketones (Negative) Urine Blood (Negative) Urine Nitrite (Negative) Urine Bilirubin (Negative) Urine Urobilinogen (Negative) Ur Leukocyte Esterase (Negative) Urine WBC (Auto) (0-5) /hpf Urine RBC (Auto) (0-4) /hpf U Hyaline Cast (Auto) (0-5) /lpf U Epithel Cells (Auto) (0-5) /lpf Urine Bacteria (Auto) (Negative) COVID-19 Eval Order SARS-CoV-2, RNA, NAAT (NEGATIVE) Blood Type O Positive Antibody Screen NEGATIVE 05/13/20 05/13/20 05/13/20 Range/Units 19:17 19:40 19:46 WBC (4.8-10.8) K/uL RBC (4.2-5.4) M/uL Hgb (12.0-16.0) g/dL Hct (37-47) % MCV (80-100) fL MCH (25-34) pg MCHC (32-36) g/dL RDW Std Deviation (36.4-46.3) fL RDW Coeff of Hilda (11.5-14.5) % Plt Count (130-400) K/uL MPV (7.4-10.4) fL Immature Gran % (Auto) % Neut % (Auto) % Lymph % (Auto) % [place] % (Auto) % Eos % (Auto) % Baso % (Auto) % Neut # (Auto) (1.4-6.5) K/uL Lymph # (Auto) (1.2-3.4) K/uL [place] # (Auto) (0.11-0.59) K/uL Eos # (Auto) (0-0.5) K/uL Baso # (Auto) (0-0.2) K/uL Immature Gran # (Auto) (0.00-0.02) K/uL PT (9.0-12.0) Seconds INR (0.9-1.1) APTT (21.0-31.0) Seconds PTT Ratio Sodium 140 (136-145) mmol/L Potassium 4.2 (3.5-5.1) mmol/L Chloride 107 (98-107) mmol/L Carbon Dioxide 29 (21-32) mmol/L Anion Gap 5.0 (3-11) BUN 21 H (7-18) mg/dl Creatinine 0.91 (0.6-1.2) mg/dl Est Cr Clr Drug Dosing 40.8 ml/min Est GFR ( Amer) 65.7 Est GFR (Non-Af Amer) 56.7 BUN/Creatinine Ratio 22.9 H (10-20) Glucose 123 H (70-99) mg/dl Calcium 8.4 L (8.5-10.1) mg/dl Urine Color Yellow Urine Appearance Cloudy A (Clear) Urine pH 5.5 (4.5-7.5) Ur Specific [place] 1.035 H (1.000-1.030) Urine Protein 1+ H (Negative) Urine Glucose (UA) Negative (Negative) Urine Ketones Trace H (Negative) Urine Blood 2+ H (Negative) Urine Nitrite Positive A (Negative) Urine Bilirubin Negative (Negative) Urine Urobilinogen Negative (Negative) Ur Leukocyte Esterase 2+ H (Negative) Urine WBC (Auto) >30 H (0-5) /hpf Urine RBC (Auto) 10-30 H (0-4) /hpf U Hyaline Cast (Auto) 1-5 (0-5) /lpf U Epithel Cells (Auto) 20-30 H (0-5) /lpf Urine Bacteria (Auto) 4+ H (Negative) COVID-19 Eval [facility] SARS-CoV-2, RNA, NAAT (NEGATIVE) Blood Type Antibody Screen 05/13/20 Range/Units 19:46 WBC (4.8-10.8) K/uL RBC (4.2-5.4) M/uL Hgb (12.0-16.0) g/dL Hct (37-47) % MCV (80-100) fL MCH (25-34) pg MCHC (32-36) g/dL RDW Std Deviation (36.4-46.3) fL RDW Coeff of Hilda (11.5-14.5) % Plt Count (130-400) K/uL MPV (7.4-10.4) fL Immature Gran % (Auto) % Neut % (Auto) % Lymph % (Auto) % [place] % (Auto) % Eos % (Auto) % Baso % (Auto) % Neut # (Auto) (1.4-6.5) K/uL Lymph # (Auto) (1.2-3.4) K/uL [place] # (Auto) (0.11-0.59) K/uL Eos # (Auto) (0-0.5) K/uL Baso # (Auto) (0-0.2) K/uL Immature Gran # (Auto) (0.00-0.02) K/uL PT (9.0-12.0) Seconds INR (0.9-1.1) APTT (21.0-31.0) Seconds PTT Ratio Sodium (136-145) mmol/L Potassium (3.5-5.1) mmol/L Chloride (98-107) mmol/L Carbon Dioxide (21-32) mmol/L Anion Gap (3-11) BUN (7-18) mg/dl Creatinine (0.6-1.2) mg/dl Est Cr Clr Drug Dosing ml/min Est GFR ( Amer) Est GFR (Non-Af Amer) BUN/Creatinine Ratio (10-20) Glucose (70-99) mg/dl Calcium (8.5-10.1) mg/dl Urine Color Urine Appearance (Clear) Urine pH (4.5-7.5) Ur Specific [place] (1.000-1.030) Urine Protein (Negative) Urine Glucose (UA) (Negative) Urine Ketones (Negative) Urine Blood (Negative) Urine Nitrite (Negative) Urine Bilirubin (Negative) Urine Urobilinogen (Negative) Ur Leukocyte Esterase (Negative) Urine WBC (Auto) (0-5) /hpf Urine RBC (Auto) (0-4) /hpf U Hyaline Cast (Auto) (0-5) /lpf U Epithel Cells (Auto) (0-5) /lpf Urine Bacteria (Auto) (Negative) COVID-19 Eval Order SARS-CoV-2, RNA, NAAT NEGATIVE (NEGATIVE) Blood Type Antibody Screen Administered Medications Sodium Chloride (Nss 1000ml) 1,000 mls @ 80 mls/hr IV .[id number] Stop: 06/12/20 21:47 Last Admin: 05/13/20 22:22 Dose: 80 mls/hr Documented by: [id number] Discontinued Medications Phytonadione 10 mg/ Sodium (Chloride) 51 mls @ 102 mls/hr IV ONE ONE Stop: 05/13/20 21:04 Last Admin: 05/13/20 22:30 Dose: 102 mls/hr Documented by: [id number] Phytonadione (Phytonadione 5 Mg Tab) 2.5 mg PO NOW STA Stop: 05/13/20 20:16 Last Admin: 05/13/20 20:42 Dose: 2.5 mg Documented by: [id number] Discharge Plan Visit Data Chief Complaint: Fall ED Provider: Silvestre Davis Discharge Problem: Fall, Fracture of right hip Patient Disposition: Admitted As Inpatient Discharge Instructions Interventions: ED Discharge Assessment Last Done: 05/13/20 21:01 Discharge Problem: Fall Qualifiers: Encounter type: initial encounter Qualified Code(s): W19.XXXA - Unspecified fall, initial encounter Fracture of right hip Qualifiers: Encounter type: initial encounter Fracture type: closed Qualified Code(s): S72.001A - Fracture of unspecified part of neck of right femur, initial encounter for closed fracture
[2020-05-13 19:28] LABS: Basophils # (auto) 0.01 K/uL (0-0.2); Basophils % (auto) 0.1 %; Eosinophils # (auto) 0.33 K/uL (0-0.5); Eosinophils % (auto) 4.1 %; Hematocrit (blood only) 37.2 % (37-47); Hemoglobin 12.4 g/dL (12.0-16.0); Immature Granulocytes # (auto) 0.01 K/uL (0.00-0.02); Immature Granulocytes % (auto) 0.1 %; Lymphocytes % (auto) 11.3 %; Mean Corpuscular Hemoglobin 29.5 pg (25-34); Mean Corpuscular Hgb Conc 33.3 g/dL (32-36); Mean Corpuscular Volume 88.4 fL (80-100); Mean Platelet Volume 9.7 fL (7.4-10.4); Monocytes % (auto) 8.8 %; Neutrophils # (auto) 6.01 K/uL (1.4-6.5); Neutrophils % (auto) 75.6 %; Platelet Count 163 K/uL (130-400); RDW Coefficient of Variation 14.9 % (11.5-14.5); RDW Standard Deviation 46.6 fL (36.4-46.3); Red Blood Count 4.21 M/uL (4.2-5.4); White Blood Count 7.96 K/uL (4.8-10.8)
[2020-05-13 19:47] LABS: BUN Creatinine Ratio 22.9 (10-20); Calcium 8.4 mg/dl (8.5-10.1); Creatinine Clr Calc Pharmacy 40.8 ml/min; Est GFR (African American) 65.7; Est GFR (Non-African American) 56.7; Potassium 4.2 mmol/L (3.5-5.1)
[2020-05-13 19:49] LABS: INR 4.1 (0.9-1.1); Partial Thromboplastin Ratio 2.3; Prothrombin Time 40.1 Seconds (9.0-12.0)
[2020-05-13 19:55] LABS: Appearance Urine Cloudy (Clear); Bacteria Urine Automated 4+ (Negative); Bilirubin Urine Negative (Negative); Blood Urine 2+ (Negative); Color Urine Yellow; Epithelial Cell Urine Auto 20-30 /lpf (0-5); Glucose Urine UA Negative (Negative); Ketones Urine Trace (Negative); Leukocyte Esterase Urine 2+ (Negative); Nitrite Urine Positive (Negative); Protein Urine 1+ (Negative); Specific Gravity Urine 1.035 (1.000-1.030); Urobilinogen Urine Negative (Negative); WBC Urine Automated >30 /hpf (0-5); pH Urine 5.5 (4.5-7.5)
[2020-05-13 20:03] LABS: Partial Thromboplastin Time 63.7 Seconds (21.0-31.0)
--- NOTE | 2020-05-13 20:14 | XRay Report ---
XR chest 1V portable CLINICAL HISTORY: Hip fracture. Preop chest. COMPARISON STUDY: 08/17/2015 FINDINGS: The heart is the upper limits of normal in size. There is a retrocardiac opacity consistent with a hiatal hernia. There is no focal pulmonary consolidation. There is no failure. Slight increas ed density at the left hilar region likely represents a summation.[ IMPRESSION: 1. No acute findings. 2. No evidence of failure. No evidence of acute parenchymal consolidation 3. Focus of increased density at the left hilum, likely representing a vascular summation. ACT 112: Negative or not required by law. Electronically signed by: Gutierrez Mcpherson M.D. 05/13/2020 8:12 PM
[2020-05-13] MEDS ORDERED: PHYTONADIONE 5 MG TAB PO STA (20:15)
[2020-05-13] MEDS ORDERED: PHYTONADIONE 10 MG in SODIUM CHLORIDE 0.9% 50 ML IV ONE (20:35)
--- NOTE | 2020-05-13 21:02 | Progress Note ---
Date of Service May 13, 2020 Assessment & Plan (1) Fall: Encounter type: initial encounter Qualified Code(s): W19.XXXA - Unspecified fall, initial encounter (2) Fracture of right hip: Radiographs of the hip demonstrate a valgus impacted femoral neck fracture. A subcapital type fracture. The alignment appears to be good. I discussed findings with the patient's . Left as is there is a chance of displacement. I think it would be best to promote her mobility by fixating the fracture. This could be done either with screws or hemiarthroplasty. is educated about the difference between the 2 of these. Our plan at this point is internal fixation in situ. Treatment options risks benefits rehab recovery discussed. He agrees to proceed and informed consent is obtained. She will be n.p.o. after midnight. Admitted to the hospital by medicine. She is on Coumadin. INR approximately 4. 10 mg of IV vitamin K given after discussion with Dr. Guzman who. Recheck INR in morning. Chest x-ray and other labs noted. Encounter type: initial encounter Fracture type: closed Qualified Code(s): S72.001A - Fracture of unspecified part of neck of right femur, initial encounter for closed fracture Subjective Her reports that she fellThe patient is largely noncommunicative because of her stroke. she was walking yesterday twisted awkwardly and he eased her down to the floort She had some hip pain and limping. There was difficulty bearing weight on the right leg. She was brought to the ER for evaluation.there is no history of bleeding blood clots or MRSA. Review of Systems Review of Systems: Reviewed on her chart and noted Physical Exam Physical Exam: Posterior tib is trace. Foot is warm. There is tenderness to palpation of the right hip. The remainder the leg is nontender. She has 5 out of 5 ankle dorsiflexion strength. She does not cooperate or understand regarding motor exam. She does wiggle the toes but I cannot get her to press plantarflexion against my hand. Her leg is fairly stiff. Logrolling causes discomfort which appears to be localized to the hip area. Knee flexion does the same. There is no swelling or bruising. Results & Data ([facility]) Vital Signs (Past 12 Hours) Vital Signs Temp Pulse Resp BP Pulse Ox 05/13/20 17:48 36.7 C 68 16 135/68 96
[2020-05-13] MEDS ORDERED: POLYETHYLENE (MIRALAX) 17 GM PACK PO PRN (21:48)
[2020-05-13] MEDS ORDERED: MoRPHine SULFATE 2 MG/ML CARP IV PRN (21:48)
[2020-05-13] MEDS ORDERED: ONDANSETRON INJ 2 MG/ML 2 ML VIAL IV PRN (21:48)
[2020-05-13] MEDS ORDERED: ACETAMINOPHEN 325 MG TAB PO PRN (21:48)
--- NOTE | 2020-05-13 22:04 | History and Physical Report ---
DATE OF ADMISSION: 05/13/2020 CHIEF COMPLAINT: Status post fall and right hip fracture. HISTORY OF PRESENT ILLNESS: This is an 85-year-old female with past medical history significant for hypothyroidism, hyperlipidemia, hyperparathyroidism, hypertension, chronic kidney disease stage III, peripheral vascular disease, venous insufficiency, chronic atrial fibrillation on Coumadin, nutcracker esophagus, diverticulosis of colon, GERD, history of urinary retention, hiatal hernia, meningioma, dementia, history of stroke with right-sided weakness, mostly not oriented as per the , and patient ambulates with a walker. She can have difficulty feeding herself, but she can eat regular food. Last evening, when the patient was going to bathroom, she fell and her helped her to get into the bed and was brought in today and was found to have right hip fracture. Currently resting comfortably and hemodynamically stable. The patient is alert and awake, but not oriented. Could not get any history from the patient. As per , the patient does not have any fever or chills, no cough, no chest pain, no shortness of breath, no nausea, no vomiting. Normal bowel and bladder movements. No blood in the stools. No complaint of headache. No nausea, no fevers. ALLERGIES: No known drug allergies. PAST MEDICAL HISTORY: As mentioned above. PAST SURGICAL HISTORY: Botulinum toxin, breast biopsy for left breast lump, colonoscopy, EGD with biopsy, esophageal motility study, esophageal pH monitoring, partial hysterectomy, bilateral cataract surgery. MEDICATIONS: The patient is on amlodipine 2.5 mg p.o. daily, aspirin 81 mg p.o. daily, atorvastatin 40 mg p.o. daily, citalopram 20 mg p.o. daily, ferrous sulfate 325 mg p.o. daily, levothyroxine 88 mcg p.o. daily, Senokot 8.6 mg p.o. daily, warfarin as directed. FAMILY HISTORY: Significant for father had prostate cancer, mother has diabetes and heart disorder; sister has diabetes; son has psoriasis. SOCIAL HISTORY: , lives with her . No smoking history. No alcohol history. No drug use. REVIEW OF SYSTEMS: As per HPI. Could not get complete review of systems as the patient is mostly not oriented,all the hx got from . PHYSICAL EXAMINATION: GENERAL: The patient is old and frail, not in acute distress. VITAL SIGNS: Temperature 36.7, pulse 68, respiratory rate 16, blood pressure 135/68, oxygen 96% on room air. HEENT: Pupils are equal, round, and reactive to light. Oral mucosa dry. NECK: No neck masses seen. CARDIOVASCULAR: S1, S2 heard, regular rate and rhythm, no murmur, no gallop. RESPIRATORY SYSTEM: Normal AP diameter. No accessory muscle use. No wheezing, no crackles. ABDOMEN: Soft, bowel sounds present, nontender. No distention. CENTRAL NERVOUS SYSTEM: Alert and awake, not oriented. Does not obey commands. EXTREMITIES: No edema, no erythema seen. Right lower extremity is slightly shortened. LABORATORY DATA: WBC 7.9, hemoglobin 12.4, hematocrit 37.2, platelets 163. PT 40.1, INR 4.1, APTT 63.7. Sodium 140, potassium 4.2, chloride 107, bicarbonate 29, BUN 21, creatinine 0.9, serum glucose 123, calcium 8.4. Urinalysis positive for nitrite, +2 leukocyte esterase. SARS-CoV-2 RNA negative. IMAGING DATA: Chest x-ray, no acute findings, no evidence of failure, no evidence of acute parenchymal consolidation. Hip and pelvis x-ray, subcapital right hip fracture. Femur x-ray, subcapital right hip fracture. EKG: Normal sinus rhythm at a rate of 63, nonspecific ST abnormality, no acute ST changes seen. ASSESSMENT AND PLAN: This is an 85-year-old female who presents with fall. 1. mechanical fall with subcapital right hip fracture. The patient has history of stroke and ambulates with a walker, mostly not oriented as per the . EKG and chest x-ray looks okay. Labs are fine. The patient should be acceptable risk to proceed with any procedures. We will keep her n.p.o., IV fluids, IV morphine p.r.n. for pain, IV antiemetics, and monitor in the medical floor. PT and OT when stable. Social service to help with discharge planning.Getting vitamin iv 10units as inr is 4.1. 2. History of cerebrovascular accident with right-sided weakness. Ambulates with walker. Continue her aspirin, statin. Holding Coumadin for the procedures.Follow inr. 3. History of chronic atrial fibrillation, rate is under control, not on any beta [place]. Holding Coumadin for procedure. Follow PT/INR daily. Restart Coumadin as per ortho. 4. History of hypothyroidism: Continue Synthroid. 5. History of hyperlipidemia: Continue statin. 6. History of chronic kidney disease stage III: Currently with a creatinine of 0.9. We will follow the labs. Getting gentle fluids. 7. History of hypertension: Continue the amlodipine. Will monitor the blood pressure. 8. History of depression: Continue citalopram. 9. History of chronic venous insufficiency: Getting fluids. Monitor for volume overload. 10. History of urinary retention: We will monitor for any retention. Currently on [place]. 11. The patient has urinary tract infection: Will be starting on Rocephin, follow the cultures. 12. Deep venous thrombosis prophylaxis: INR is 4.1.Receiving vitamin K Holding Coumadin, restart Coumadin as per ortho. DISPOSITION: Closely monitor in the medical floor. Level 1 full code as per my discussion with . PT and OT prior to discharge. Social service to help with discharge planning. [email or web address]
[2020-05-13] MEDS ORDERED: PNEUMOCOCCAL ADMINISTRATION CHARGE ONE (22:12)
[2020-05-13] MEDS ORDERED: PNEUMOCOCCAL POLYSACCHARIDES 25 MCG/0.5 ML VIAL/SYR IM ONE (22:12)
[2020-05-13] MEDS: SODIUM CHLORIDE 0.9% 1000ML 1,000 ML IV SCH (22:22)
[2020-05-14] MEDS: cefTRIAXone SODIUM 1,000 MG in DEXTROSE 5% 50 ML IV SCH ×2 (00:04→21:38)
[2020-05-14 05:35] LABS: Basophils # (auto) 0.01 K/uL (0-0.2); Basophils % (auto) 0.1 %; Eosinophils # (auto) 0.29 K/uL (0-0.5); Eosinophils % (auto) 3.3 %; Hematocrit (blood only) 38.3 % (37-47); Hemoglobin 12.9 g/dL (12.0-16.0); Immature Granulocytes # (auto) 0.02 K/uL (0.00-0.02); Immature Granulocytes % (auto) 0.2 %; Lymphocytes # (auto) 0.67 K/uL (1.2-3.4); Lymphocytes % (auto) 7.6 %; Mean Corpuscular Hemoglobin 29.6 pg (25-34); Mean Corpuscular Hgb Conc 33.7 g/dL (32-36); Mean Corpuscular Volume 87.8 fL (80-100); Mean Platelet Volume 9.8 fL (7.4-10.4); Monocytes # (auto) 0.55 K/uL (0.11-0.59); Monocytes % (auto) 6.3 %; Neutrophils # (auto) 7.22 K/uL (1.4-6.5); Neutrophils % (auto) 82.5 %; Platelet Count 159 K/uL (130-400); RDW Coefficient of Variation 14.8 % (11.5-14.5); RDW Standard Deviation 45.9 fL (36.4-46.3); Red Blood Count 4.36 M/uL (4.2-5.4); White Blood Count 8.76 K/uL (4.8-10.8)
[2020-05-14 05:46] LABS: INR 1.5 (0.9-1.1); Prothrombin Time 15.9 Seconds (9.0-12.0)
[2020-05-14 05:55] LABS: BUN Creatinine Ratio 21.9 (10-20); Calcium 8.2 mg/dl (8.5-10.1); Creatinine Clr Calc Pharmacy 54.6 ml/min; Est GFR (African American) 91.2; Est GFR (Non-African American) 78.6; Magnesium 2.1 mg/dl (1.8-2.4); Potassium 3.6 mmol/L (3.5-5.1)
[2020-05-14] MEDS: LEVOTHYROXINE SODIUM 88 MCG TABLET PO SCH (06:18)
[2020-05-14] MEDS: ATORVASTATIN 40 MG TAB PO SCH (08:04)
[2020-05-14] MEDS: CITALOPRAM 20 MG TAB PO SCH (08:04)
[2020-05-14] MEDS: SENNA 8.6 MG TAB PO SCH (08:04)
[2020-05-14] MEDS: ASPIRIN 81 MG ECTAB PO SCH (08:04)
[2020-05-14] MEDS: amLODIPine BESYLATE 5 MG TAB PO SCH (08:04)
[2020-05-14] MEDS: FERROUS SULFATE 325 MG TAB PO SCH (08:04)
[2020-05-14] MEDS ORDERED: ceFAZolin 1000MG 1,000 MG/7.5 ML SYR IV ONE (08:17)
--- NOTE | 2020-05-14 08:17 | Progress Note ---
Date of Service May 14, 2020 Assessment & Plan (1) Fracture of right hip: Plan the this morning is to proceed with percutaneous fixation of the right hip. Her INR is 1.5 which is acceptable. I will repeat a stat PTT as this was elevated also. The remainder of her vitals and labs have been reviewed and are within acceptable parameters. She has been n.p.o. Encounter type: initial encounter Fracture type: closed Qualified Code(s): S72.001A - Fracture of unspecified part of neck of right femur, initial encounter for closed fracture Present on Admission?: Yes Admission and Anticipated Discharge Date Admission Date: May 13, 2020 Subjective Patient is resting comfortably in bed. She responds to questions but not in a coherent way. She is awake and alert. Physical Exam Physical Exam: The right hip demonstrates pain with minor logrolling. Posterior tib is 1+. She does not follow a detailed exam in terms of sensation and motor function but she does wiggle her toes slightly and flex and extend the ankle slightly but cannot offer a detailed motor exam. Her hip is not bruised or swollen. Results & Data ([facility]) Vital Signs (Past 12 Hours) Vital Signs Temp Pulse Resp BP BP Pulse Ox 05/14/20 07:05 36.6 C 77 18 166/75 H 92 05/13/20 23:00 36.4 C L 66 14 156/54 H 95 05/13/20 22:45 36.5 C 60 16 146/64 H 93 05/13/20 22:28 36.4 C L 61 18 147/74 H 94 05/13/20 21:50 36.6 C 65 18 146/66 H 96 05/13/20 21:01 18 143/82 H Laboratory Results 05/14/20 05/14/20 05/14/20 Range/Units 05:26 05:26 05:26 WBC 8.76 (4.8-10.8) K/uL RBC 4.36 (4.2-5.4) M/uL Hgb 12.9 (12.0-16.0) g/dL Hct 38.3 (37-47) % MCV 87.8 (80-100) fL MCH 29.6 (25-34) pg MCHC 33.7 (32-36) g/dL RDW Std Deviation 45.9 (36.4-46.3) fL RDW Coeff of Hilda 14.8 H (11.5-14.5) % Plt Count 159 (130-400) K/uL MPV 9.8 (7.4-10.4) fL Immature Gran % (Auto) 0.2 % Neut % (Auto) 82.5 % Lymph % (Auto) 7.6 % [place] % (Auto) 6.3 % Eos % (Auto) 3.3 % Baso % (Auto) 0.1 % Neut # (Auto) 7.22 H (1.4-6.5) K/uL Lymph # (Auto) 0.67 L (1.2-3.4) K/uL [place] # (Auto) 0.55 (0.11-0.59) K/uL Eos # (Auto) 0.29 (0-0.5) K/uL Baso # (Auto) 0.01 (0-0.2) K/uL Immature Gran # (Auto) 0.02 (0.00-0.02) K/uL PT 15.9 H (9.0-12.0) Seconds INR 1.5 H (0.9-1.1) APTT (21.0-31.0) Seconds PTT Ratio Sodium 139 (136-145) mmol/L Potassium 3.6 (3.5-5.1) mmol/L Chloride 107 (98-107) mmol/L Carbon Dioxide 27 (21-32) mmol/L Anion Gap 5.0 (3-11) BUN 15 (7-18) mg/dl Creatinine 0.68 (0.6-1.2) mg/dl Est Cr Clr Drug Dosing 54.6 ml/min Est GFR ( Amer) 91.2 Est GFR (Non-Af Amer) 78.6 BUN/Creatinine Ratio 21.9 H (10-20) Glucose 134 H (70-99) mg/dl Calcium 8.2 L (8.5-10.1) mg/dl Magnesium 2.1 (1.8-2.4) mg/dl Urine Color Urine Appearance (Clear) Urine pH (4.5-7.5) Ur Specific [place] (1.000-1.030) Urine Protein (Negative) Urine Glucose (UA) (Negative) Urine Ketones (Negative) Urine Blood (Negative) Urine Nitrite (Negative) Urine Bilirubin (Negative) Urine Urobilinogen (Negative) Ur Leukocyte Esterase (Negative) Urine WBC (Auto) (0-5) /hpf Urine RBC (Auto) (0-4) /hpf U Hyaline Cast (Auto) (0-5) /lpf U Epithel Cells (Auto) (0-5) /lpf Urine Bacteria (Auto) (Negative) COVID-19 Eval Order SARS-CoV-2, RNA, NAAT (NEGATIVE) Blood Type Antibody Screen 05/13/20 05/13/20 05/13/20 Range/Units 19:46 19:46 19:40 WBC (4.8-10.8) K/uL RBC (4.2-5.4) M/uL Hgb (12.0-16.0) g/dL Hct (37-47) % MCV (80-100) fL MCH (25-34) pg MCHC (32-36) g/dL RDW Std Deviation (36.4-46.3) fL RDW Coeff of Hilda (11.5-14.5) % Plt Count (130-400) K/uL MPV (7.4-10.4) fL Immature Gran % (Auto) % Neut % (Auto) % Lymph % (Auto) % [place] % (Auto) % Eos % (Auto) % Baso % (Auto) % Neut # (Auto) (1.4-6.5) K/uL Lymph # (Auto) (1.2-3.4) K/uL [place] # (Auto) (0.11-0.59) K/uL Eos # (Auto) (0-0.5) K/uL Baso # (Auto) (0-0.2) K/uL Immature Gran # (Auto) (0.00-0.02) K/uL PT (9.0-12.0) Seconds INR (0.9-1.1) APTT (21.0-31.0) Seconds PTT Ratio Sodium (136-145) mmol/L Potassium (3.5-5.1) mmol/L Chloride (98-107) mmol/L Carbon Dioxide (21-32) mmol/L Anion Gap (3-11) BUN (7-18) mg/dl Creatinine (0.6-1.2) mg/dl Est Cr Clr Drug Dosing ml/min Est GFR ( Amer) Est GFR (Non-Af Amer) BUN/Creatinine Ratio (10-20) Glucose (70-99) mg/dl Calcium (8.5-10.1) mg/dl Magnesium (1.8-2.4) mg/dl Urine Color Yellow Urine Appearance Cloudy A (Clear) Urine pH 5.5 (4.5-7.5) Ur Specific [place] 1.035 H (1.000-1.030) Urine Protein 1+ H (Negative) Urine Glucose (UA) Negative (Negative) Urine Ketones Trace H (Negative) Urine Blood 2+ H (Negative) Urine Nitrite Positive A (Negative) Urine Bilirubin Negative (Negative) Urine Urobilinogen Negative (Negative) Ur Leukocyte Esterase 2+ H (Negative) Urine WBC (Auto) >30 H (0-5) /hpf Urine RBC (Auto) 10-30 H (0-4) /hpf U Hyaline Cast (Auto) 1-5 (0-5) /lpf U Epithel Cells (Auto) 20-30 H (0-5) /lpf Urine Bacteria (Auto) 4+ H (Negative) COVID-19 Eval Order Covid19 IDNow atMAZC SARS-CoV-2, RNA, NAAT NEGATIVE (NEGATIVE) Blood Type Antibody Screen 05/13/20 05/13/20 05/13/20 Range/Units 19:17 19:17 19:17 WBC 7.96 (4.8-10.8) K/uL RBC 4.21 (4.2-5.4) M/uL Hgb 12.4 (12.0-16.0) g/dL Hct 37.2 (37-47) % MCV 88.4 (80-100) fL MCH 29.5 (25-34) pg MCHC 33.3 (32-36) g/dL RDW Std Deviation 46.6 H (36.4-46.3) fL RDW Coeff of Hilda 14.9 H (11.5-14.5) % Plt Count 163 (130-400) K/uL MPV 9.7 (7.4-10.4) fL Immature Gran % (Auto) 0.1 % Neut % (Auto) 75.6 % Lymph % (Auto) 11.3 % [place] % (Auto) 8.8 % Eos % (Auto) 4.1 % Baso % (Auto) 0.1 % Neut # (Auto) 6.01 (1.4-6.5) K/uL Lymph # (Auto) 0.90 L (1.2-3.4) K/uL [place] # (Auto) 0.70 H (0.11-0.59) K/uL Eos # (Auto) 0.33 (0-0.5) K/uL Baso # (Auto) 0.01 (0-0.2) K/uL Immature Gran # (Auto) 0.01 (0.00-0.02) K/uL PT 40.1 H (9.0-12.0) Seconds INR 4.1 H (0.9-1.1) APTT 63.7 H* (21.0-31.0) Seconds PTT Ratio 2.3 Sodium 140 (136-145) mmol/L Potassium 4.2 (3.5-5.1) mmol/L Chloride 107 (98-107) mmol/L Carbon Dioxide 29 (21-32) mmol/L Anion Gap 5.0 (3-11) BUN 21 H (7-18) mg/dl Creatinine 0.91 (0.6-1.2) mg/dl Est Cr Clr Drug Dosing 40.8 ml/min Est GFR ( Amer) 65.7 Est GFR (Non-Af Amer) 56.7 BUN/Creatinine Ratio 22.9 H (10-20) Glucose 123 H (70-99) mg/dl Calcium 8.4 L (8.5-10.1) mg/dl Magnesium (1.8-2.4) mg/dl Urine Color Urine Appearance (Clear) Urine pH (4.5-7.5) Ur Specific [place] (1.000-1.030) Urine Protein (Negative) Urine Glucose (UA) (Negative) Urine Ketones (Negative) Urine Blood (Negative) Urine Nitrite (Negative) Urine Bilirubin (Negative) Urine Urobilinogen (Negative) Ur Leukocyte Esterase (Negative) Urine WBC (Auto) (0-5) /hpf Urine RBC (Auto) (0-4) /hpf U Hyaline Cast (Auto) (0-5) /lpf U Epithel Cells (Auto) (0-5) /lpf Urine Bacteria (Auto) (Negative) COVID-19 Eval Order SARS-CoV-2, RNA, NAAT (NEGATIVE) Blood Type Antibody Screen 05/13/20 Range/Units 19:17 WBC (4.8-10.8) K/uL RBC (4.2-5.4) M/uL Hgb (12.0-16.0) g/dL Hct (37-47) % MCV (80-100) fL MCH (25-34) pg MCHC (32-36) g/dL RDW Std Deviation (36.4-46.3) fL RDW Coeff of Hilda (11.5-14.5) % Plt Count (130-400) K/uL MPV (7.4-10.4) fL Immature Gran % (Auto) % Neut % (Auto) % Lymph % (Auto) % [place] % (Auto) % Eos % (Auto) % Baso % (Auto) % Neut # (Auto) (1.4-6.5) K/uL Lymph # (Auto) (1.2-3.4) K/uL [place] # (Auto) (0.11-0.59) K/uL Eos # (Auto) (0-0.5) K/uL Baso # (Auto) (0-0.2) K/uL Immature Gran # (Auto) (0.00-0.02) K/uL PT (9.0-12.0) Seconds INR (0.9-1.1) APTT (21.0-31.0) Seconds PTT Ratio Sodium (136-145) mmol/L Potassium (3.5-5.1) mmol/L Chloride (98-107) mmol/L Carbon Dioxide (21-32) mmol/L Anion Gap (3-11) BUN (7-18) mg/dl Creatinine (0.6-1.2) mg/dl Est Cr Clr Drug Dosing ml/min Est GFR ( Amer) Est GFR (Non-Af Amer) BUN/Creatinine Ratio (10-20) Glucose (70-99) mg/dl Calcium (8.5-10.1) mg/dl Magnesium (1.8-2.4) mg/dl Urine Color Urine Appearance (Clear) Urine pH (4.5-7.5) Ur Specific [place] (1.000-1.030) Urine Protein (Negative) Urine Glucose (UA) (Negative) Urine Ketones (Negative) Urine Blood (Negative) Urine Nitrite (Negative) Urine Bilirubin (Negative) Urine Urobilinogen (Negative) Ur Leukocyte Esterase (Negative) Urine WBC (Auto) (0-5) /hpf Urine RBC (Auto) (0-4) /hpf U Hyaline Cast (Auto) (0-5) /lpf U Epithel Cells (Auto) (0-5) /lpf Urine Bacteria (Auto) (Negative) COVID-19 Eval Order SARS-CoV-2, RNA, NAAT (NEGATIVE) Blood Type O Positive Antibody Screen NEGATIVE
[2020-05-14 08:55] LABS: Partial Thromboplastin Ratio 1.6
[2020-05-14 09:04] LABS: Partial Thromboplastin Time 45.8 Seconds (21.0-31.0)
--- NOTE | 2020-05-14 10:19 | Progress Note ---
Date of Service May 14, 2020 Assessment & Plan Admission and Anticipated Discharge Date Admission Date: May 13, 2020 Subjective PTT elevated, INR 1.5. after consulting w dr avery will postpone case until tomorrow AM, family aware, rechk pt/inr/ptt. Results & Data ([facility]) Vital Signs (Past 12 Hours) Vital Signs Temp Pulse Resp BP Pulse Ox 05/14/20 07:05 36.6 C 77 18 166/75 H 92 05/13/20 23:00 36.4 C L 66 14 156/54 H 95 05/13/20 22:45 36.5 C 60 16 146/64 H 93 05/13/20 22:28 36.4 C L 61 18 147/74 H 94
[2020-05-14] MEDS ORDERED: ACETAMINOPHEN 325 MG TAB PO PRN (10:26)
[2020-05-14] MEDS ORDERED: oxyCODONE HCL IR 5 MG TAB (IMMEDIATE RELEASE) PO PRN (10:28)
[2020-05-14] MEDS ORDERED: HYDROmorphone INJ 0.5 MG/0.5 ML SYR IV PRN (10:28)
[2020-05-14] MEDS: SODIUM CHLORIDE 0.9% 1000ML 1,000 ML IV SCH (10:32)
--- NOTE | 2020-05-14 10:36 | Hospitalist Progress Note ---
Date of Service May 14, 2020 Assessment & Plan (1) Fall: -as per ED notes on 05/13/2020 "Patient is a 85-year-old female history of CKD, atrial fibrillation, Alzheimer's disease, CVA with some resultant right- sided deficits presented today via ambulance from home after a fall that nima mariella about 24 hours ago. Patient's present provides majority of the history is a patient self unable to recall and provide significant history. He states yesterday they are walking in behind her to help support her and she lost her balance and slid down to the ground on the right side. Patient states he broke her fall underneath of her and tried to hold her up but was unsuccessful. States she did not strike her head or seem to suffer significant injury at that time. Was able to bear little bit of weight on her legs at that point and did not seem to significantly injured so he watched her overnight. Ate okay today but then started complain of some pain with movement of the right leg and thigh. No additional falls reported. Patient herself does complain some pain when trying to move the right leg before what I can gather does not really seem to be in any other discomfort. Does look around the room and appears somewhat anxious. reports Sissy has some chronic weakness of the right side." (2) Fracture of right hip: -on admission, patient's Radiographs of the hip demonstrate a valgus impacted femoral neck fracture. A subcapital type fracture. -prn pain medictaions -05/14/2020 AM updates: Patient with history of dementia. She is awake and alert and verbal but has confusion likely due to her dementia as she cannot answer questions appropriately. She allowed for physical exam. She was able to move the toes of left lower extremity but not the toes of the right leg when asked. 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 Hypertension -on amlodipine urinary tract infection -continue ceftriaxone as started by admitting hospitalist -follow urine culture chronic kidney disease stage III History of chronic venous insufficiency -follow the renal function -monitor urine output History of hypothyroidism: -Continue levothyroxine DVT prophylaxis: SCDs to left leg only at this time Admission and Anticipated Discharge Date Admission Date: May 13, 2020 Subjective Patient with history of dementia. She is awake and alert and verbal but has confusion likely due to her dementia as she cannot answer questions appropriately. She allowed for physical exam. She was able to move the toes of left lower extremity but not the toes of the right leg when asked. Patient's orthopedic surgery is planned for her right hip fracture is planned for 05/15/2020 to anticipate further decreases in the INR or PTT Review of Systems Review of Systems: Unobtainable due to cognitive status Physical Exam Constitutional: comfortable Eyes: PERRL, conjunctivae normal, anicteric sclerae EOM intact bilaterally ENMT: external ear and nose normal, oropharynx normal Neck: normal visual inspection Respiratory: normal respiratory effort, lungs clear to auscultation Cardiovascular: Rate/Rhythm: regular rate Gastrointestinal (Abdomen): normal bowel sounds, soft, nontender, no hepatosplenomegaly Musculoskeletal: Head/Neck/Chest: normocephalic and head atraumatic Neurologic: awake (able to move upper extremities and left lower leg) Psychiatric: Orientation: alert Results & Data Results & Data ([facility]) Vital Signs (Past 12 Hours) Vital Signs Temp Pulse Resp BP Pulse Ox 05/14/20 07:05 36.6 C 77 18 166/75 H 92 05/13/20 23:00 36.4 C L 66 14 156/54 H 95 05/13/20 22:45 36.5 C 60 16 146/64 H 93 (1) Fracture of right hip Encounter type: initial encounter Fracture type: closed Qualified Code(s): S72.001A - Fracture of unspecified part of neck of right femur, initial encounter for closed fracture (2) Fall Encounter type: initial encounter Qualified Code(s): W19.XXXA - Unspecified fall, initial encounter
--- NOTE | 2020-05-14 13:32 | Electrocardiogram Report ---
Test Reason : Blood Pressure : / mmHG Vent. Rate : 063 BPM Atrial Rate : 063 BPM P-R Int : 160 ms QRS Dur : 078 ms QT Int : 458 ms P-R-T Axes : 062 010 020 degrees QTc Int : 468 ms Poor data quality, interpretation may be adversely affected Normal sinus rhythm Nonspecific ST and T wave abnormality Abnormal ECG When compared with ECG of 04-JAN-2020 16:06, Nonspecific T wave abnormality now evident in Anterior leads QT has lengthened Confirmed by Pritesh Jason ([id number]) on 05/14/2020 1:31:36 PM Referred By: REFERRED SELF Confirmed By:Pritesh Jason
--- NOTE | 2020-05-14 15:56 | Anesthesiology Consultation ---
Date of Service May 14, 2020 Assessment & Plan Chart Review Chart Review: Acceptable Risk for Surgery and Patient NOT seen in Pre Admission Testing Consults Requested none ASA ASA4 History Surgery Operation Date: 05/15/20 11:00 Proposed Procedures p ORIF Hip Cannulated Screw(Right) - Mauro Tena MD Height/Weight Height: 5 ft 6 in Weight: 65 kg Allergies Allergy/AdvReac Type Severity Reaction Status Date / Time No Known Allergies Allergy Verified 05/13/20 19:10 Medications Home Medications Medication Instructions Recorded Confirmed Last Taken amlodipine 2.5 mg PO DAILY 05/13/20 05/13/20 05/13/20 aspirin [Aspirin Low Dose] 81 mg PO DAILY 05/13/20 05/13/20 05/13/20 atorvastatin 40 mg PO DAILY 05/13/20 05/13/20 05/13/20 citalopram 20 mg PO DAILY 05/13/20 05/13/20 05/13/20 ferrous sulfate 325 mg PO QDB 05/13/20 05/13/20 05/13/20 levothyroxine 88 mcg PO DAILY 05/13/20 05/13/20 05/13/20 sennosides [senna] 8.6 mg PO DAILY 05/13/20 05/13/20 05/13/20 warfarin See Rx Instructions .ROUTE .COMPLEX 05/13/20 05/13/20 05/13/20 09:00 6 MG Active Medications Generic Name Dose Route Start Last Admin Trade Name Freq PRN Reason Stop Dose Admin Amlodipine Besylate 2.5 mg 05/14/20 09:00 05/14/20 08:04 Amlodipine Besylate 5 Mg Tab PO 06/13/20 08:59 2.5 mg DAILY EUSEBIA Administration Aspirin 81 mg 05/14/20 09:00 05/14/20 08:04 Aspirin 81 Mg Ectab PO 06/13/20 08:59 81 mg DAILY EUSEBIA Administration Atorvastatin Calcium 40 mg 05/14/20 09:00 05/14/20 08:04 Atorvastatin 40 Mg Tab PO 06/13/20 08:59 40 mg DAILY EUSE[place] Administration Citalopram Hydrobromide 20 mg 05/14/20 09:00 05/14/20 08:04 Citalopram 20 Mg Tab PO 06/13/20 08:59 20 mg DAILY EUSEBIA Administration Ferrous Sulfate 325 mg 05/14/20 07:30 05/14/20 08:04 Ferrous Sulfate 325 Mg Tab PO 06/13/20 07:29 325 mg QDB EUSEBIA Administration Ceftriaxone Sodium 1,000 mg/ 50 mls @ 100 mls/hr 05/13/20 22:00 05/14/20 00:44 Dextrose IV 05/23/20 21:59 Infused Q24H EUSEBIA Infusion Protocol Levothyroxine Sodium 88 mcg 05/14/20 06:30 05/14/20 06:18 Levothyroxine Sodium 88 Mcg Tablet PO 06/13/20 06:29 Not Given DAILYBB EUSEBIA Sennosides 8.6 mg 05/14/20 09:00 05/14/20 08:04 Senna 8.6 Mg Tab PO 06/13/20 08:59 8.6 mg DAILY EUSEBIA Administration Past Medical History Medical History Alzheimers disease Anticoagulant long-term use Chronic atrial fibrillation CKD (chronic kidney disease), stage III GERD (gastroesophageal reflux disease) Hyperlipidemia Hypertension Lupus erythematosus Lupus erythematosus based on skin biopsy - labs negative Venous insufficiency Exercise / Class Metabolic Activity IV < 2 Limit ADL/Bedbound Past Family History Family History Other Diabetes Past Surgical History Surgical History History of cataract surgery History of partial hysterectomy Past Anesthesia History No Hx of Anesthesia Complications and No Family Hx of Anesthesia Complications History of PONV No Hx of PONV and No Hx of Motion Sickness Social History Smoking Status: Unknown if ever smoked Physical Exam Vital Signs Last Vital Signs Temp 36.6 C 05/14/20 07:05 Pulse 77 05/14/20 07:05 Resp 18 05/14/20 07:05 BP 166/75 H 05/14/20 07:05 Pulse Ox 92 05/14/20 07:05 Testing Laboratory Results 05/14/20 05:26 05/14/20 05:26 PT 15.9 Seconds (9.0-12.0) H 05/14/20 05:26 INR 1.5 (0.9-1.1) H 05/14/20 05:26 APTT 45.8 Seconds (21.0-31.0) H* 05/14/20 05:26 Urine Color Yellow 05/13/20 19:40 Urine Appearance Cloudy (Clear) A 05/13/20 19:40 Urine pH 5.5 (4.5-7.5) 05/13/20 19:40 Ur Specific [place] 1.035 (1.000-1.030) H 05/13/20 19:40 Urine Protein 1+ (Negative) H 05/13/20 19:40 Urine Glucose (UA) Negative (Negative) 05/13/20 19:40 Urine Ketones Trace (Negative) H 05/13/20 19:40 Urine Nitrite Positive (Negative) A 05/13/20 19:40 Ur Leukocyte Esterase 2+ (Negative) H 05/13/20 19:40 Urine WBC (Auto) >30 /hpf (0-5) H 05/13/20 19:40 Urine RBC (Auto) 10-30 /hpf (0-4) H 05/13/20 19:40 U Hyaline Cast (Auto) 1-5 /lpf (0-5) 05/13/20 19:40 U Epithel Cells (Auto) 20-30 /lpf (0-5) H 05/13/20 19:40 Urine Bacteria (Auto) 4+ (Negative) H 05/13/20 19:40 Blood Type O Positive 05/13/20 19:17 Antibody Screen NEGATIVE 05/13/20 19:17 05/13/20 19:40 Urine Culture - Preliminary Urine,Straight Cath Gram negative bacilli Electrocardiogram Date: 05/13/20 Findings: + NSR @ (at 63;NS STT wave abnormality) Chest X-Ray Date: 05/13/20 Findings: + NAD and + other (hiatal hernia) Echocardiogram Date: 09/22/18 EF: 60% LV Function: normal RWMA: + none Valvular Disease: + (mild ;calcified AV;ADALBERTO 1.4 cm2)
[2020-05-14] MEDS ORDERED: amLODIPine BESYLATE 5 MG TAB PO ONE (18:32)
[2020-05-14] MEDS ORDERED: hydroCHLOROthiazide 25 MG TAB PO STA (18:33)
[2020-05-14 19:00] LABS: INR 2.3 (0.9-1.1); Partial Thromboplastin Ratio 1.7; Prothrombin Time 23.5 Seconds (9.0-12.0)
[2020-05-14 19:08] LABS: Partial Thromboplastin Time 48.3 Seconds (21.0-31.0)
[2020-05-14] MEDS ORDERED: PHYTONADIONE 10 MG in SODIUM CHLORIDE 0.9% 50 ML IV ONE (19:30)
[2020-05-15] MEDS: LEVOTHYROXINE SODIUM 88 MCG TABLET PO SCH (06:10)
[2020-05-15 06:25] LABS: Basophils # (auto) 0.01 K/uL (0-0.2); Basophils % (auto) 0.1 %; Eosinophils # (auto) 0.16 K/uL (0-0.5); Eosinophils % (auto) 1.8 %; Hematocrit (blood only) 36.9 % (37-47); Hemoglobin 12.1 g/dL (12.0-16.0); Immature Granulocytes # (auto) 0.02 K/uL (0.00-0.02); Immature Granulocytes % (auto) 0.2 %; Lymphocytes % (auto) 11.5 %; Mean Corpuscular Hemoglobin 28.9 pg (25-34); Mean Corpuscular Hgb Conc 32.8 g/dL (32-36); Mean Corpuscular Volume 88.1 fL (80-100); Mean Platelet Volume 9.9 fL (7.4-10.4); Monocytes # (auto) 0.75 K/uL (0.11-0.59); Monocytes % (auto) 8.6 %; Neutrophils # (auto) 6.75 K/uL (1.4-6.5); Neutrophils % (auto) 77.8 %; Platelet Count 181 K/uL (130-400); RDW Coefficient of Variation 14.9 % (11.5-14.5); RDW Standard Deviation 46.3 fL (36.4-46.3); Red Blood Count 4.19 M/uL (4.2-5.4); White Blood Count 8.69 K/uL (4.8-10.8)
[2020-05-15 06:37] LABS: Partial Thromboplastin Ratio 1.3; Partial Thromboplastin Time 35.4 Seconds (21.0-31.0)
[2020-05-15 07:19] LABS: BUN Creatinine Ratio 16.8 (10-20); Calcium 8.7 mg/dl (8.5-10.1); Est GFR (Non-African American) 67.3; Potassium 3.6 mmol/L (3.5-5.1)
[2020-05-15 07:23] LABS: Albumin Globulin Ratio 0.8 (0.9-2); Bilirubin,Total 0.9 mg/dl (0.2-1)
--- NOTE | 2020-05-15 07:55 | History & Physical Bridge Note ---
Date of Service May 15, 2020 History & Physical Bridge Note I have examined the patient, reviewed the History & Physical and in the interval since the performance of the History & Physical I have noted the following changes of clinical significance: no changes noted, coags acceptable, inr wnl
[2020-05-15] MEDS ORDERED: PROPOFOL IV EMULSION 10 MG/ML 20 ML VIAL IV ONE ×2 (08:03→09:16)
[2020-05-15] MEDS ORDERED: fentaNYL citrate 100 MCG/2 ML VIAL ONE ×2 (08:03→09:22)
[2020-05-15] MEDS ORDERED: LIDOCAINE HCL 1% 20 ML VIAL ONE (08:09)
[2020-05-15] MEDS ORDERED: BUPIVACAINE 0.5 % 5 MG/1 ML MPF 30ML VIAL ONE (08:09)
[2020-05-15] MEDS ORDERED: ONDANSETRON INJ 2 MG/ML 2 ML VIAL ONE (09:16)
[2020-05-15] MEDS ORDERED: SUCCINYLCHOLINE 100MG/5ML SYR IV ONE (09:16)
[2020-05-15] MEDS ORDERED: DEXAMETHASONE SOD INJ 4 MG/ML VIAL ONE (09:16)
[2020-05-15] MEDS ORDERED: ePHEDrine sulfate 50 MG/ML SYR ONE (09:16)
[2020-05-15] MEDS ORDERED: PHENYLEPHRINE 100MCG/ML 5ML SYR ONE (09:16)
[2020-05-15] MEDS ORDERED: ROCURONIUM BROMIDE 10 MG/ML 5 ML VIAL IV ONE (09:24)
[2020-05-15] MEDS ORDERED: GLYCOPYRROLATE 0.2 MG/ML VIAL ONE (09:25)
[2020-05-15] MEDS ORDERED: NEOSTIGMINE METHYLSULFATE 5 MG/5 ML SYR ONE (09:25)
[2020-05-15] MEDS ORDERED: PHENYLEPHRINE HCL 10 MG/ML VIAL ONE (09:35)
--- NOTE | 2020-05-15 10:22 | Fluoroscopy Report ---
FL hip RT 2-3V CLINICAL HISTORY: Subcapital right hip fracture COMPARISON STUDY: 05/13/2020 FLUOROSCOPY TIME: 86 seconds. NUMBER OF FLUOROSCOPIC IMAGES: 3 FINDINGS: 3 intraoperative fluoroscopic spot images reveal internal fixation of a subcapital right hi p fracture with 3 cannulated screws. IMPRESSION: Internally fixated subcapital right hip fracture with 3 cannulated screws. ACT 112: Negative or not required by law. Electronically signed by: Gutierrez Mcpherson M.D. 05/15/2020 10:21 AM
--- NOTE | 2020-05-15 10:25 | Operative Report ---
Post Operative Report Pre & Post Diagnosis Operation Date: 05/15/20 11:00 Pre-Op Diagnosis: Right Hip Fracture valgus impacted nondisplaced acceptable alignment Post-Op Diagnosis: Right Hip Fracture, same I identified the patient and participated in the time-out.: Yes Procedure Operation Date: 05/15/20 11:00 Actual Procedures In situ internal Fixation Cannulated Screw Right Hip(Right) - Mauro Tena MD Surgeon Mauro Tena MD [employer] Claudia Hair physicians technical staff assistant no resident or fellow available Estimated Blood Loss 5 Findings Consistent with Post-Op Diagnosis Specimens None Drains None Anesthesia Type General Complications none Disposition Accompanied Patient To Recovery: No Disposition: Recovery Room Indications Judith is 85. She injured her right leg resulting in a nondisplaced valgus impacted acceptably aligned right femoral neck fracture., Subcapital. Her Coumadin anticoagulation has been reversed. She has a stroke with aphasia and right-sided hemiparesis. Treatment options discussed with and he will he elected to proceed with surgery Description of Procedure Informed consent obtained. Patient identified. The operative site was identified as the right hip. I marked with my initials. A preoperative surgical timeout was performed and a preop dose of IV antibiotics was given. She was taken to the operating room positioned supine on the fracture table. The arms were folded across the chest and the torso secured the table. A well- padded perineal post was inserted and she was distal lysed to engage the post with her perineum. She was then placed into a balanced scissors traction with minimal physiologic traction. Padding of the boots was performed. The table was air planed to the opposite side and fluoroscopic images confirmed adequate visualization and an acceptably aligned valgus impacted fracture of the subcapital hip. Fluoroscopic images were utilized to localize the area of the incision. A routine prep and drape was performed prior to this and a shower curtain was utilized. The incision was made and carried sharply down to the skin and subcutaneous tissues. The IT band was divided in line with the incision and the vastus lateralis was bluntly elevated off the femur. A guidepin was introduced inferior and central followed by posterior and central and an anterior central guidewire. These were judged to be in good position based upon anatomical landmarks of the fracture. Screws were inserted above or at the level of the lesser trochanter. The lateral cortex was opened and screws were inserted with power and by hand until they were properly seated beyond the fracture site and within 5 to 7 mm of the subchondral bone. AP and lateral images were obtained confirming reduction of the fracture and positioning of the hardware. The guidewire was removed. Irrigation performed. Meticulous hemostasis. The IT band was closed with interrupted #1 Vicryl. Subcutaneous tissues with 0 Vicryl. Skin with 2-0 Vicryl and bob. 10 cc of local anesthetic were injected for local anesthesia. Saw sterile dressing applied. Xeroform 4 x 4's ABD foam tape. Patient awake from anesthesia without difficulty and taken to recovery room in stable condition. There were no specimens or complications. Counts were correct. Blood loss was 5 cc. At the conclusion the operation I spoke to patient's family informed of my findings and gave postop instructions. She will be able to weight-bear as tolerated. She will be started back on her Coumadin as well. Lovenox for bridging will be utilized at the discretion of her hospitalist provider. I attest to the content of the Intraoperative Record and any orders documented therein. Any exceptions are noted below.
[2020-05-15] MEDS ORDERED: ONDANSETRON INJ 2 MG/ML 2 ML VIAL IV PRN ×2 (10:41→10:52)
[2020-05-15] MEDS ORDERED: diphenhydrAMINE 50 MG/ML VIAL IV PRN (10:41)
[2020-05-15] MEDS ORDERED: NALOXONE HCL 0.4 MG/1 ML VIAL/CARP IV PRN ×3 (10:41→10:52)
[2020-05-15] MEDS ORDERED: MAGNESIUM HYDROXIDE SUSP 30 ML UDC PO PRN (10:41)
[2020-05-15] MEDS ORDERED: bisacodyL 10 MG SUPP PR PRN (10:41)
[2020-05-15] MEDS ORDERED: METOCLOPRAMIDE HCL INJ 5 MG/ML 2 ML VIAL IV PRN (10:41)
[2020-05-15] MEDS ORDERED: diphenhydrAMINE Capsule 25 MG CAP PO PRN (10:41)
[2020-05-15] MEDS ORDERED: SODIUM CHLORIDE 0.9% 1000ML 1,000 ML IV SCH (10:45)
--- NOTE | 2020-05-15 10:46 | Operative Report ---
Post Operative Report Pre & Post Diagnosis Operation Date: 05/15/20 11:00 Pre-Op Diagnosis: Right Hip Fracture Post-Op Diagnosis: Right Hip Fracture I identified the patient and participated in the time-out.: Yes Procedure Operation Date: 05/15/20 11:00 Actual Procedures p Open Reduction Internal Fixation Cannulated Screw Right Hip(Right) - Mauro Tena MD Surgeon Darinel Associate Professor Of Medicine Claudia Hair physicians academic assistant no resident or fellow available Estimated Blood Loss 5 Findings Consistent with Post-Op Diagnosis Specimens none Complications none Description of Procedure See Darinel note. I was healthcare administrative assistant from prepping, draping, limb and instrument handling, wound closure, dressings. I attest to the content of the Intraoperative Record and any orders documented therein. Any exceptions are noted below.
[2020-05-15] MEDS ORDERED: ATROPINE SULFATE 0.1 MG/ML 10ML SYR IV PRN (10:52)
[2020-05-15] MEDS ORDERED: LABETALOL HCL IV 5 MG/ML 20ML IV PRN (10:52)
[2020-05-15] MEDS ORDERED: fentaNYL citrate 100 MCG/2 ML VIAL IV PRN (10:52)
[2020-05-15] MEDS ORDERED: ePHEDrine sulfate 50 MG/ML AMP IV PRN (10:52)
[2020-05-15] MEDS ORDERED: PROMETHAZINE HCL 12.5 MG in SODIUM CHLORIDE 0.9% 50 ML IV PRN (10:52)
[2020-05-15] MEDS ORDERED: ERGOCALCIFEROL 50,000 UNITS 1250 MCG CAP PO ONE ×2 (11:02→11:15)
--- NOTE | 2020-05-15 11:58 | Hospitalist Progress Note ---
Date of Service May 15, 2020 Assessment & Plan (1) Fall: -as per ED notes on 05/13/2020 "Patient is a 85-year-old female history of CKD, atrial fibrillation, Alzheimer's disease, CVA with some resultant right- sided deficits presented today via ambulance from home after a fall that nima mariella about 24 hours ago. Patient's present provides majority of the history is a patient self unable to recall and provide significant history. He states yesterday they are walking in behind her to help support her and she lost her balance and slid down to the ground on the right side. Patient states he broke her fall underneath of her and tried to hold her up but was unsuccessful. States she did not strike her head or seem to suffer significant injury at that time. Was able to bear little bit of weight on her legs at that point and did not seem to significantly injured so he watched her overnight. Ate okay today but then started complain of some pain with movement of the right leg and thigh. No additional falls reported. Patient herself does complain some pain when trying to move the right leg before what I can gather does not really seem to be in any other discomfort. Does look around the room and appears somewhat anxious. reports Sissy has some chronic weakness of the right side." (2) Fracture of right hip: -on admission, patient's Radiographs of the hip demonstrate a valgus impacted femoral neck fracture. A subcapital type fracture. 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 Hypertension -on amlodipine urinary tract infection -ceftriaxone started on admission on 05/13/2020 (in addition patient received operative antibiotics of cefazolin on 05/15/2020 surgery day) -urine culture returns as Escherichia coli. continue ceftriaxone daily for now chronic kidney disease stage III History of chronic venous insufficiency -follow the renal function -monitor urine output History of hypothyroidism: -Continue levothyroxine DVT prophylaxis: SCDs, coumadin to be resumed Admission and Anticipated Discharge Date Admission Date: May 13, 2020 Subjective Patient returns from surgery and is s/p Open Reduction Internal Fixation Cannulated Screw Right Hip. Patient is awake. cannot give review of systems due to her dementia and also had surgery not too long ago. Patient does not appear to be in acute distress Review of Systems Review of Systems: Unobtainable due to cognitive status Physical Exam Constitutional: comfortable Eyes: PERRL, conjunctivae normal, anicteric sclerae EOM intact bilaterally ENMT: external ear and nose normal, oropharynx normal Neck: normal visual inspection Respiratory: normal respiratory effort, lungs clear to auscultation Cardiovascular: Rate/Rhythm: regular rate Gastrointestinal (Abdomen): normal bowel sounds, soft, nontender, no hepatosplenomegaly Musculoskeletal: Head/Neck/Chest: normocephalic and head atraumatic Neurologic: awake (able to move upper extremities and left lower leg) Psychiatric: Orientation: alert Results & Data Results & Data ([facility]) Vital Signs (Past 12 Hours) Vital Signs Temp Pulse Pulse Resp BP Pulse Ox 05/15/20 11:29 36.4 C L 87 16 107/65 97 05/15/20 11:05 36.4 C L 89 22 105/57 L 95 05/15/20 10:55 93 H 18 121/61 95 05/15/20 10:45 87 19 125/63 99 05/15/20 10:35 36.4 C L 99 H 16 133/70 99 05/15/20 07:13 37.1 C 81 18 145/78 H 93 (1) Fracture of right hip Encounter type: initial encounter Fracture type: closed Qualified Code(s): S72.001A - Fracture of unspecified part of neck of right femur, initial encounter for closed fracture (2) Fall Encounter type: initial encounter Qualified Code(s): W19.XXXA - Unspecified fall, initial encounter
[2020-05-15] MEDS: SODIUM CHLORIDE 0.9% 1000ML 1,000 ML IV SCH ×2 (12:05→21:19)
[2020-05-15] MEDS: amLODIPine BESYLATE 5 MG TAB PO SCH (12:06)
[2020-05-15] MEDS: CITALOPRAM 20 MG TAB PO SCH (12:06)
[2020-05-15] MEDS: SENNA 8.6 MG TAB PO SCH ×2 (12:06→20:22)
[2020-05-15] MEDS: FERROUS SULFATE 325 MG TAB PO SCH (12:06)
[2020-05-15] MEDS: ASPIRIN 81 MG ECTAB PO SCH (12:06)
[2020-05-15] MEDS: ATORVASTATIN 40 MG TAB PO SCH (12:07)
--- NOTE | 2020-05-15 12:08 | Anesthesiology Progress Note ---
Date of Service May 15, 2020 Anesthesia Post Procedure Vital Signs Vital Signs: Temp Pulse Pulse Resp BP Pulse Ox 05/15/20 11:29 36.4 C L 87 16 107/65 97 05/15/20 11:05 36.4 C L 89 22 105/57 L 95 05/15/20 10:55 93 H 18 121/61 95 05/15/20 10:45 87 19 125/63 99 05/15/20 10:35 36.4 C L 99 H 16 133/70 99 05/15/20 07:13 37.1 C 81 18 145/78 H 93 05/14/20 23:06 36.4 C L 84 14 150/72 H 93 05/14/20 21:32 36.7 C 86 12 161/67 H 94 05/14/20 20:32 36.5 C 87 12 150/77 H 94 05/14/20 20:02 36.7 C 93 H 12 151/77 H 92 05/14/20 19:46 36.6 C 97 H 12 138/80 92 05/14/20 18:20 157/63 H 05/14/20 17:05 36.8 C 87 16 180/77 H 94 Pain Intensity Right Hip: Pain Intensity: 0 Transfer of Care Handoff Completed per policy Notes Mental Status: alert / awake / arousable Patient Amnestic to Procedure: Yes Nausea / Vomiting: adequately controlled Pain: adequately controlled Airway Patency, RR, SpO2: stable & adequate BP & HR: stable & adequate Hydration State: stable & adequate Anesthetic Complications: no major complications apparent
[2020-05-15] MEDS: WARFARIN SOD 6 MG TAB PO SCH (16:48)
[2020-05-15] MEDS: ceFAZolin 2000MG 2,000 MG/15 ML SYR IV SCH (16:51)
[2020-05-15] MEDS: DOCUSATE SODIUM 100 MG CAP PO SCH (20:21)
[2020-05-15] MEDS: cefTRIAXone SODIUM 1,000 MG in DEXTROSE 5% 50 ML IV SCH (21:19)
[2020-05-16] MEDS: ceFAZolin 2000MG 2,000 MG/15 ML SYR IV SCH (02:06)
[2020-05-16] MEDS: LEVOTHYROXINE SODIUM 88 MCG TABLET PO SCH (06:32)
[2020-05-16 07:58] LABS: Hematocrit (blood only) 32.8 % (37-47); Hemoglobin 10.8 g/dL (12.0-16.0); Immature Granulocytes # (auto) 0.02 K/uL (0.00-0.02); Immature Granulocytes % (auto) 0.2 %; Lymphocytes # (auto) 0.66 K/uL (1.2-3.4); Mean Corpuscular Hemoglobin 29.3 pg (25-34); Mean Corpuscular Hgb Conc 32.9 g/dL (32-36); Mean Corpuscular Volume 89.1 fL (80-100); Mean Platelet Volume 10.2 fL (7.4-10.4); Monocytes # (auto) 0.68 K/uL (0.11-0.59); Monocytes % (auto) 8.2 %; Neutrophils % (auto) 83.6 %; Platelet Count 172 K/uL (130-400); RDW Coefficient of Variation 14.6 % (11.5-14.5); RDW Standard Deviation 46.7 fL (36.4-46.3); Red Blood Count 3.68 M/uL (4.2-5.4); White Blood Count 8.26 K/uL (4.8-10.8)
[2020-05-16 08:09] LABS: Prothrombin Time 10.4 Seconds (9.0-12.0)
[2020-05-16 08:31] LABS: Creatinine Clr Calc Pharmacy 38.3 ml/min; Est GFR (African American) 60.9; Est GFR (Non-African American) 52.5; Potassium 3.8 mmol/L (3.5-5.1)
[2020-05-16] MEDS: CITALOPRAM 20 MG TAB PO SCH (08:31)
[2020-05-16] MEDS: ASPIRIN 81 MG ECTAB PO SCH (08:31)
[2020-05-16] MEDS: FERROUS SULFATE 325 MG TAB PO SCH (08:31)
[2020-05-16] MEDS: MULTIVITAMIN TAB PO SCH (08:31)
[2020-05-16] MEDS: DOCUSATE SODIUM 100 MG CAP PO SCH ×2 (08:32→19:55)
[2020-05-16] MEDS: amLODIPine BESYLATE 5 MG TAB PO SCH (08:32)
[2020-05-16] MEDS: ATORVASTATIN 40 MG TAB PO SCH (08:32)
[2020-05-16] MEDS: SENNA 8.6 MG TAB PO SCH ×2 (08:32→19:55)
[2020-05-16] MEDS ORDERED: ERGOCALCIFEROL 50,000 UNITS 1250 MCG CAP PO SCH (09:00)
--- NOTE | 2020-05-16 10:35 | Hospitalist Progress Note ---
Date of Service May 16, 2020 Assessment & Plan (1) Fall: -as per ED notes on 05/13/2020 "Patient is a 85-year-old female history of CKD, atrial fibrillation, Alzheimer's disease, CVA with some resultant right- sided deficits presented today via ambulance from home after a fall that nima mariella about 24 hours ago. Patient's present provides majority of the history is a patient self unable to recall and provide significant history. He states yesterday they are walking in behind her to help support her and she lost her balance and slid down to the ground on the right side. Patient states he broke her fall underneath of her and tried to hold her up but was unsuccessful. States she did not strike her head or seem to suffer significant injury at that time. Was able to bear little bit of weight on her legs at that point and did not seem to significantly injured so he watched her overnight. Ate okay today but then started complain of some pain with movement of the right leg and thigh. No additional falls reported. Patient herself does complain some pain when trying to move the right leg before what I can gather does not really seem to be in any other discomfort. Does look around the room and appears somewhat anxious. reports Sissy has some chronic weakness of the right side." (2) Fracture of right hip: -on admission, patient's Radiographs of the hip demonstrate a valgus impacted femoral neck fracture. A subcapital type fracture. 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 Hypertension -on amlodipine urinary tract infection -ceftriaxone started on admission on 05/13/2020 (in addition patient received operative antibiotics of cefazolin on 05/15/2020 surgery day) -urine culture returns as Escherichia coli. continue ceftriaxone daily for now chronic kidney disease stage III History of chronic venous insufficiency -follow the renal function -monitor urine output History of hypothyroidism: -Continue levothyroxine DVT prophylaxis: SCDs, coumadin to be resumed Admission and Anticipated Discharge Date Admission Date: May 13, 2020 Subjective Patient seen and examined at the bedside,. No acute distress. patient is to be seen by therapy. when I assessed the patient she was able to move the toes of the left nonoperative side but still could not wiggle the toes of the right leg (this lack of activity of right foot was seen even prior to surgery. Patient has dressing of the right thigh intact Review of Systems Review of Systems: Unobtainable due to cognitive status Physical Exam Constitutional: comfortable Eyes: PERRL, conjunctivae normal, anicteric sclerae EOM intact bilaterally ENMT: external ear and nose normal, oropharynx normal Neck: normal visual inspection Respiratory: normal respiratory effort, lungs clear to auscultation Cardiovascular: Rate/Rhythm: regular rate Gastrointestinal (Abdomen): normal bowel sounds, soft, nontender, no hepatosplenomegaly Musculoskeletal: Head/Neck/Chest: normocephalic and head atraumatic dressing of right thigh Neurologic: awake Psychiatric: Orientation: alert Results & Data Results & Data ([facility]) Vital Signs (Past 12 Hours) Vital Signs Temp Pulse Resp BP BP Pulse Ox Pulse Ox 05/16/20 06:55 36.6 C 63 16 124/65 93 05/16/20 06:02 92 05/16/20 04:00 36.5 C 73 12 120/67 95 (1) Fracture of right hip Encounter type: initial encounter Fracture type: closed Qualified Code(s): S72.001A - Fracture of unspecified part of neck of right femur, initial encounter for closed fracture (2) Fall Encounter type: initial encounter Qualified Code(s): W19.XXXA - Unspecified fall, initial encounter
--- NOTE | 2020-05-16 12:58 | Progress Notes ---
DATE: 05/16/2020 Judith is resting comfortably in bed. She is responsive and awake, but does not communicate very well. She is afebrile. Her vital signs are stable. Her dressing is clean and dry and intact. Thigh is not swollen. White count 8, hemoglobin 11, hematocrit 33, platelets 172. Her INR today is 1.0 and her PRP is noted within normal limits. She has a trace posterior tibial pulse. She reports that she can feel her foot, but I question the accuracy of this. She is able to wiggle her toes somewhat on both feet, left more so than the right and a little bit of ankle movement as well, but I think due to cognitive issues and the stroke on the right leg, there is limited movement. IMPRESSION: Right-sided hemiparesis, Alzheimer's, right hip fracture, valgus impacted subcapital fracture, status post percutaneous screws. PLAN: She is doing well. Decubitus precautions. Restart Coumadin for DVT prophylaxis. She may weightbear as tolerated and have PT and OT. May need placement at [facility]. May need halfway. Bridging Lovenox for prophylactic dosage would be okay at this point if felt to be medically necessary.
[2020-05-16] MEDS: WARFARIN SOD 6 MG TAB PO SCH (16:14)
[2020-05-16] MEDS: cefTRIAXone SODIUM 1,000 MG in DEXTROSE 5% 50 ML IV SCH (22:51)
[2020-05-17] MEDS: LEVOTHYROXINE SODIUM 88 MCG TABLET PO SCH (05:01)
[2020-05-17 06:49] LABS: Basophils # (auto) 0.01 K/uL (0-0.2); Basophils % (auto) 0.1 %; Eosinophils # (auto) 0.14 K/uL (0-0.5); Eosinophils % (auto) 1.9 %; Hematocrit (blood only) 34.1 % (37-47); Hemoglobin 11.2 g/dL (12.0-16.0); Immature Granulocytes # (auto) 0.01 K/uL (0.00-0.02); Immature Granulocytes % (auto) 0.1 %; Lymphocytes # (auto) 1.17 K/uL (1.2-3.4); Lymphocytes % (auto) 16.1 %; Mean Corpuscular Hemoglobin 29.2 pg (25-34); Mean Corpuscular Hgb Conc 32.8 g/dL (32-36); Mean Platelet Volume 9.9 fL (7.4-10.4); Monocytes # (auto) 0.62 K/uL (0.11-0.59); Monocytes % (auto) 8.5 %; Neutrophils # (auto) 5.31 K/uL (1.4-6.5); Neutrophils % (auto) 73.3 %; Platelet Count 201 K/uL (130-400); RDW Coefficient of Variation 14.7 % (11.5-14.5); RDW Standard Deviation 46.3 fL (36.4-46.3); Red Blood Count 3.83 M/uL (4.2-5.4); White Blood Count 7.26 K/uL (4.8-10.8)
[2020-05-17 07:17] LABS: BUN Creatinine Ratio 23.3 (10-20); Calcium 8.7 mg/dl (8.5-10.1); Creatinine Clr Calc Pharmacy 48.8 ml/min; Est GFR (African American) 81.7; Est GFR (Non-African American) 70.5; Potassium 3.3 mmol/L (3.5-5.1)
[2020-05-17] MEDS ORDERED: POTASSIUM CHLORIDE CRTAB 20 MEQ TABCR PO ONE (07:45)
--- NOTE | 2020-05-17 08:02 | Hospitalist Progress Note ---
Date of Service May 17, 2020 Assessment & Plan (1) Fall: -as per ED notes on 05/13/2020 "Patient is a 85-year-old female history of CKD, atrial fibrillation, Alzheimer's disease, CVA with some resultant right- sided deficits presented today via ambulance from home after a fall that nima mariella about 24 hours ago. Patient's present provides majority of the history is a patient self unable to recall and provide significant history. He states yesterday they are walking in behind her to help support her and she lost her balance and slid down to the ground on the right side. Patient states he broke her fall underneath of her and tried to hold her up but was unsuccessful. States she did not strike her head or seem to suffer significant injury at that time. Was able to bear little bit of weight on her legs at that point and did not seem to significantly injured so he watched her overnight. Ate okay today but then started complain of some pain with movement of the right leg and thigh. No additional falls reported. Patient herself does complain some pain when trying to move the right leg before what I can gather does not really seem to be in any other discomfort. Does look around the room and appears somewhat anxious. reports Sissy has some chronic weakness of the right side." (2) Fracture of right hip: s/p right hip surgery -on admission, patient's Radiographs of the hip demonstrate a valgus impacted femoral neck fracture. A subcapital type fracture. -05/15/2020: s/p Open Reduction Internal Fixation Cannulated Screw Right Hip on 05/15/2020 -monitor postoperative Hgb. 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 Hypertension -on amlodipine urinary tract infection -ceftriaxone started on admission on 05/13/2020 (in addition patient received operative antibiotics of cefazolin on 05/15/2020 surgery day) -urine culture returns as Escherichia coli. continue ceftriaxone daily for now. a repeat UA is ordered for 05/17/2020 chronic kidney disease stage III History of chronic venous insufficiency -follow the renal function -monitor urine output Hypokalemia, mild -serum potassium is mildly low as 3.3 on 05/17/2020 and potassium supplements are ordered History of hypothyroidism -Continue levothyroxine DVT prophylaxis: SCDs, coumadin to be resumed Admission and Anticipated Discharge Date Admission Date: May 13, 2020 Subjective Patient has dementia but is pleasant. A full review of systems cannot be formally completed but patient reports she feels "good" when asked how she feels. on room air and breathing comfortably. She appears to be relatively comfortable in general. There is ice on top of left thigh. As before her surgery, she cannot seem to wiggle the toes of left foot when asked. Review of Systems Review of Systems: All systems reviewed & are unremarkable except as noted in Subjective Physical Exam Constitutional: comfortable Eyes: PERRL, conjunctivae normal, anicteric sclerae EOM intact bilaterally ENMT: external ear and nose normal, oropharynx normal Neck: normal visual inspection Respiratory: normal respiratory effort, lungs clear to auscultation Cardiovascular: Rate/Rhythm: regular rate Gastrointestinal (Abdomen): normal bowel sounds, soft, nontender, no hepatosplenomegaly Musculoskeletal: Head/Neck/Chest: normocephalic and head atraumatic left thight with ice Neurologic: awake Psychiatric: Orientation: alert Results & Data Results & Data ([facility]) Vital Signs (Past 12 Hours) Vital Signs Temp Pulse Resp BP Pulse Ox 05/17/20 07:06 36.7 C 79 16 119/70 93 05/16/20 22:57 36.6 C 78 17 144/80 H 92 (1) Fracture of right hip Encounter type: initial encounter Fracture type: closed Qualified Code(s): S72.001A - Fracture of unspecified part of neck of right femur, initial encounter for closed fracture (2) Fall Encounter type: initial encounter Qualified Code(s): W19.XXXA - Unspecified fall, initial encounter
[2020-05-17] MEDS: SENNA 8.6 MG TAB PO SCH ×2 (08:44→21:25)
[2020-05-17] MEDS: MULTIVITAMIN TAB PO SCH (08:44)
[2020-05-17] MEDS: amLODIPine BESYLATE 5 MG TAB PO SCH (08:44)
[2020-05-17] MEDS: ATORVASTATIN 40 MG TAB PO SCH (08:45)
[2020-05-17] MEDS: DOCUSATE SODIUM 100 MG CAP PO SCH ×2 (08:45→21:25)
[2020-05-17] MEDS: FERROUS SULFATE 325 MG TAB PO SCH (08:45)
[2020-05-17] MEDS: CITALOPRAM 20 MG TAB PO SCH (08:45)
[2020-05-17] MEDS: POTASSIUM CHLORIDE / WTR 10 MEQ/100 ML PLCT IV SCH ×2 (08:48→10:53)
--- NOTE | 2020-05-17 12:59 | Orthopedic Progress Note ---
Date of Service May 17, 2020 Assessment & Plan (1) Fracture of right hip: Overall doing well. Continue PT OT. Will likely need a disposition to [facility] or acute care rehab. Continue Coumadin for DVT prophylaxis. She may weight-bear as tolerated. INR subtherapeutic. Will discuss with medicine about starting Lovenox. 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 Looks well. Physical Exam Physical Exam: Dressing clean and dry. Has been changed by nursing. Thigh soft. Posterior tib 1+. She can move her leg knee and ankle. She does not comply with a detailed neurovascular exam. Swelling minimal Results & Data ([facility]) Vital Signs (Past 12 Hours) Vital Signs Temp Pulse Resp BP Pulse Ox 05/17/20 07:06 36.7 C 79 16 119/70 93 (1) Dementia Alzheimer's disease onset: unspecified onset Dementia behavioral disturbance: without behavioral disturbance Dementia type: Alzheimer's disease Qualified Code(s): G30.9 - Alzheimer's disease, unspecified; F02.80 - Dementia in other diseases classified elsewhere without behavioral disturbance (2) Fracture of right hip Encounter type: initial encounter Fracture type: closed Qualified Code(s): S72.001A - Fracture of unspecified part of neck of right femur, initial encounter for closed fracture (3) Fall Encounter type: initial encounter Qualified Code(s): W19.XXXA - Unspecified fall, initial encounter
[2020-05-17] MEDS ORDERED: ENOXAPARIN INJ 40 MG/0.4 ML SYR SQ ONE (13:56)
--- NOTE | 2020-05-17 13:58 | Communication Note ---
Date of Service: May 17, 2020 although patient is on coumadin, she is currently subtherapeutic. Orthopedics Dr. Tena request Lovenox 40 mg subc daily as DVT prophylaxis strategy until INR is therapeutic on coumadin (goal INR 2 to 3)
[2020-05-17] MEDS ORDERED: WARFARIN SOD 3 MG TAB PO SCH (16:00)
[2020-05-17 17:46] LABS: Appearance Urine Turbid (Clear); Blood Urine Trace (Negative); Color Urine Dark Yellow; Epithelial Cell Urine Auto >30 /lpf (0-5); Glucose Urine UA Negative (Negative); Ketones Urine Trace (Negative); Leukocyte Esterase Urine Trace (Negative); Nitrite Urine Negative (Negative); Protein Urine 1+ (Negative); Urobilinogen Urine Negative (Negative)
[2020-05-17 17:56] LABS: Bilirubin Urine Negative (Negative); Ictotest Urine Negative (Negative)
[2020-05-17 18:01] LABS: Mucus Urine Present (None Prsent)
[2020-05-17 18:02] LABS: Renal Epithelial Cells Urine 0-5 /lpf (0-5)
[2020-05-17 18:04] LABS: Bacteria Urine Automated 1+ (Negative)
[2020-05-17] MEDS: cefTRIAXone SODIUM 1,000 MG in DEXTROSE 5% 50 ML IV SCH (21:30)
[2020-05-18] MEDS: LEVOTHYROXINE SODIUM 88 MCG TABLET PO SCH (06:26)
[2020-05-18 06:44] LABS: Basophils # (auto) 0.01 K/uL (0-0.2); Basophils % (auto) 0.2 %; Eosinophils # (auto) 0.17 K/uL (0-0.5); Eosinophils % (auto) 2.9 %; Hematocrit (blood only) 32.2 % (37-47); Hemoglobin 10.8 g/dL (12.0-16.0); Immature Granulocytes # (auto) 0.02 K/uL (0.00-0.02); Immature Granulocytes % (auto) 0.3 %; Lymphocytes # (auto) 1.05 K/uL (1.2-3.4); Lymphocytes % (auto) 17.8 %; Mean Corpuscular Hemoglobin 29.6 pg (25-34); Mean Corpuscular Hgb Conc 33.5 g/dL (32-36); Mean Corpuscular Volume 88.2 fL (80-100); Mean Platelet Volume 9.4 fL (7.4-10.4); Monocytes # (auto) 0.54 K/uL (0.11-0.59); Monocytes % (auto) 9.1 %; Neutrophils # (auto) 4.12 K/uL (1.4-6.5); Neutrophils % (auto) 69.7 %; Platelet Count 198 K/uL (130-400); RDW Coefficient of Variation 14.3 % (11.5-14.5); RDW Standard Deviation 45.3 fL (36.4-46.3); Red Blood Count 3.65 M/uL (4.2-5.4); White Blood Count 5.91 K/uL (4.8-10.8)
[2020-05-18 06:53] LABS: INR 1.2 (0.9-1.1); Prothrombin Time 12.3 Seconds (9.0-12.0)
[2020-05-18 07:18] LABS: Albumin Level 2.6 gm/dl (3.4-5.0); BUN Creatinine Ratio 22.5 (10-20); Calcium 8.3 mg/dl (8.5-10.1); Creatinine Clr Calc Pharmacy 53.8 ml/min; Est GFR (African American) 90.7; Est GFR (Non-African American) 78.3; Potassium 3.5 mmol/L (3.5-5.1)
[2020-05-18 07:20] LABS: Albumin Globulin Ratio 0.8 (0.9-2); Bilirubin,Total 0.9 mg/dl (0.2-1); Globulin 3.4 gm/dl (2.5-4.0)
[2020-05-18] MEDS: DOCUSATE SODIUM 100 MG CAP PO SCH ×2 (09:12→22:01)
[2020-05-18] MEDS: ENOXAPARIN INJ 40 MG/0.4 ML SYR SQ SCH (09:13)
[2020-05-18] MEDS: amLODIPine BESYLATE 5 MG TAB PO SCH (09:13)
[2020-05-18] MEDS: SENNA 8.6 MG TAB PO SCH ×2 (09:13→22:01)
[2020-05-18] MEDS: MULTIVITAMIN TAB PO SCH (09:13)
[2020-05-18] MEDS: ASPIRIN 81 MG ECTAB PO SCH (09:13)
[2020-05-18] MEDS: FERROUS SULFATE 325 MG TAB PO SCH (09:13)
[2020-05-18] MEDS: ATORVASTATIN 40 MG TAB PO SCH (09:13)
[2020-05-18] MEDS: CITALOPRAM 20 MG TAB PO SCH (09:13)
[2020-05-18] MEDS: WARFARIN SOD 6 MG TAB PO SCH (15:34)
[2020-05-18] MEDS: cefTRIAXone SODIUM 1,000 MG in DEXTROSE 5% 50 ML IV SCH (22:00)
--- NOTE | 2020-05-18 22:03 | Hospitalist Progress Note ---
Date of Service delayed entry date of service noted below May 18, 2020 Assessment & Plan (1) Fall: (2) Fracture of right hip: s/p right hip surgery -on admission, patient's Radiographs of the hip demonstrate a valgus impacted femoral neck fracture. A subcapital type fracture. -05/15/2020: s/p Open Reduction Internal Fixation Cannulated Screw Right Hip on 05/15/2020 -stable overall pain well controlled Lovenox SC for DVT protocol (3) Anticoagulant long-term use: with supratherapeutic INR on admission History of chronic atrial fibrillation with senior care current use of coumadin - continue coumadin History of cerebrovascular accident with right-sided weakness in the past History of hyperlipidemia -on aspirin and statin Alzheimer's dementia History of depression -Continue citalopram. Hypertension -on amlodipine urinary tract infection - afebrile, continue Ceftriaxone chronic kidney disease stage III History of chronic venous insufficiency - crea stable Hypokalemia, mild - K supplement ordered History of hypothyroidism -Continue levothyroxine DVT prophylaxis: SCDs, coumadin + Lovenox SC Admission and Anticipated Discharge Date Admission Date: May 13, 2020 Subjective ff up for hip fracture s/p surgery seen resting in bed, sitting up comfortable, awake, alert tracks examiner, cooperative, calm but non verbal no signs of pain, distress no issues per RN appetite is good no other symptoms Review of Systems Review of Systems: All systems reviewed & are unremarkable except as noted in Subjective Physical Exam Physical Exam: General- oriented x 0, not in distress, breathing with no effort or accessory muscle use Eyes- anicteric Neck- no JVD Lungs- clear breath sounds bilaterally, no rales/wheezes Heart- normal rate, regular rhythm; no murmurs Abdomen- normal bowel sounds, nondistended, soft, nontender Extremities- no pretibial edema, no calf tenderness right hip: mild edema, dressing in place, no bleeding/discharge Neuro- alert, oriented x 0; non verbal, right sided weakness, no other gross focal neurologic deficits Skin- warm & dry Results & Data Results & Data ([facility]) Vital Signs (Past 12 Hours) Vital Signs Temp Pulse Resp BP Pulse Ox 05/18/20 15:09 36.6 C 72 18 118/74 93 (1) Fracture of right hip Encounter type: initial encounter Fracture type: closed Qualified Code(s): S72.001A - Fracture of unspecified part of neck of right femur, initial encounter for closed fracture (2) Fall Encounter type: initial encounter Qualified Code(s): W19.XXXA - Unspecified fall, initial encounter
[2020-05-18] MEDS ORDERED: SODIUM CHLORIDE 0.9% 1000ML 1,000 ML IV SCH (22:15)
[2020-05-19] MEDS: LEVOTHYROXINE SODIUM 88 MCG TABLET PO SCH (06:22)
[2020-05-19 07:17] VITALS: PULSE 71; TEMP 98.1; O2SAT 94
[2020-05-19] MEDS: ATORVASTATIN 40 MG TAB PO SCH (08:19)
[2020-05-19] MEDS: MULTIVITAMIN TAB PO SCH (08:19)
[2020-05-19] MEDS: CITALOPRAM 20 MG TAB PO SCH (08:19)
[2020-05-19] MEDS: ASPIRIN 81 MG ECTAB PO SCH (08:19)
[2020-05-19] MEDS: DOCUSATE SODIUM 100 MG CAP PO SCH (08:19)
[2020-05-19] MEDS: FERROUS SULFATE 325 MG TAB PO SCH (08:19)
[2020-05-19] MEDS: SENNA 8.6 MG TAB PO SCH (08:19)
[2020-05-19] MEDS: amLODIPine BESYLATE 5 MG TAB PO SCH (08:19)
[2020-05-19] MEDS: ENOXAPARIN INJ 40 MG/0.4 ML SYR SQ SCH (08:20)
[2020-05-19 08:49] LABS: Basophils # (auto) 0.03 K/uL (0-0.2); Basophils % (auto) 0.5 %; Eosinophils # (auto) 0.11 K/uL (0-0.5); Eosinophils % (auto) 1.9 %; Hematocrit (blood only) 31.5 % (37-47); Hemoglobin 10.4 g/dL (12.0-16.0); Immature Granulocytes # (auto) 0.01 K/uL (0.00-0.02); Immature Granulocytes % (auto) 0.2 %; Lymphocytes # (auto) 0.86 K/uL (1.2-3.4); Lymphocytes % (auto) 14.7 %; Mean Corpuscular Hemoglobin 29.2 pg (25-34); Mean Corpuscular Volume 88.5 fL (80-100); Mean Platelet Volume 9.4 fL (7.4-10.4); Monocytes % (auto) 13.7 %; Neutrophils # (auto) 4.05 K/uL (1.4-6.5); Platelet Count 202 K/uL (130-400); RDW Coefficient of Variation 14.2 % (11.5-14.5); RDW Standard Deviation 44.4 fL (36.4-46.3); Red Blood Count 3.56 M/uL (4.2-5.4); White Blood Count 5.86 K/uL (4.8-10.8)
[2020-05-19 09:06] LABS: INR 1.2 (0.9-1.1); Prothrombin Time 12.9 Seconds (9.0-12.0)
[2020-05-19 09:24] LABS: BUN Creatinine Ratio 21.2 (10-20); Calcium 8.6 mg/dl (8.5-10.1); Creatinine Clr Calc Pharmacy 53.8 ml/min; Est GFR (African American) 90.7; Est GFR (Non-African American) 78.3; Potassium 3.4 mmol/L (3.5-5.1)
[2020-05-19] MEDS ORDERED: REMDESIVIR 200 MG in SODIUM CHLORIDE 0.9% 210 ML IV STA (11:16)
[2020-05-19] MEDS ORDERED: DEXAMETHASONE SOD PHOSPHATE 6 MG in SYRINGE 0 ML IV SCH (11:30)
[2020-05-19] MEDS ORDERED: SODIUM CHLORIDE 0.9% 10ML FLUSH IV SCH (11:30)
--- NOTE | 2020-05-19 11:33 | XRay Report ---
XR chest 1V portable HISTORY: 85 years-old Female r/o covid pneumonia acute shortness of breath with reported pneumonia COMPARISON: Chest radiograph 05/13/2020 TECHNIQUE: Portable AP view of the chest FINDINGS: Cardiac silhouette is mildly enlarged. No pneumothorax or large pleural effusion. Mild bilateral reti cular opacities have slightly progressed from comparison. Degenerative changes of the shoulders and s pine. IMPRESSION: Cardiomegaly with subtle bilateral reticular opacities suggestive of mild pulmonary edema versus interstitial pneumonitis. ACT 112: Negative or not required by law. The above report was generated using voice recognition software. It may contain grammatical, syntax o r spelling errors. Electronically signed by: Florencio Hackett M.D. 05/19/2020 11:31 AM
--- NOTE | 2020-05-19 11:34 | Orthopedic Progress Note ---
Date of Service May 19, 2020 Assessment & Plan (1) Fracture of right hip: Overall doing well. Continue PT OT. Will likely need a disposition to assisted or acute care rehab. Continue Coumadin for DVT prophylaxis. She may weight-bear as tolerated. Medicine service initiated Lovenox for DVT prophylaxis due to a subtherapeutic INR level. Admission and Anticipated Discharge Date Admission Date: May 13, 2020 Subjective This 85-year-old female is seen today on the third floor. Patient is awake sitting in her bed. She is pleasantly confused. She is unable to follow any type of command. I was unable to obtain a review of systems because she did not speak. Patient does not appear to be in any distress Review of Systems Review of Systems: Unobtainable due to cognitive status Physical Exam Physical Exam: Right hip: Dressing clean and dry and intact. Thigh soft. Posterior tib 1+. Passive range of motion of the patient's knee ankle and foot did not cause any significant pain. I was unable to determine neurovascular status of the patient's right lower extremity due to her not following any commands and being nonverbal. Results & Data ([facility]) Vital Signs (Past 12 Hours) Vital Signs Temp Pulse Resp BP BP Pulse Ox 05/19/20 07:16 36.7 C 71 16 117/67 94 05/19/20 00:14 36.4 C L 74 16 127/73 93 (1) Fracture of right hip Encounter type: initial encounter Fracture type: closed Qualified Code(s): S72.001A - Fracture of unspecified part of neck of right femur, initial encounter for closed fracture
[2020-05-19] MEDS ORDERED: POTASSIUM CHLORIDE CRTAB 20 MEQ TABCR PO ONE (12:15)
[2020-05-19] MEDS ORDERED: PANTOprazole 40 MG TAB PO SCH (12:30)
--- NOTE | 2020-05-19 13:11 | Hospitalist Progress Note ---
Date of Service May 19, 2020 Assessment & Plan (1) Fall: per Dr. Adrien Bonilla's notes: -as per ED notes on 05/13/2020 "Patient is a 85-year-old female history of CKD, atrial fibrillation, Alzheimer's disease, CVA with some resultant right-sided deficits presented today via ambulance from home after a fall that happened about 24 hours ago. Patient's present provides majority of the history is a patient self unable to recall and provide significant history. He states yesterday they are walking in behind her to help support her and she lost her balance and slid down to the ground on the right side. Patient states he broke her fall underneath of her and tried to hold her up but was unsuccessful. States she did not strike her head or seem to suffer significant injury at that time. Was able to bear little bit of weight on her legs at that point and did not seem to significantly injured so he watched her overnight. Ate okay today but then started complain of some pain with movement of the right leg and thigh. No additional falls reported. Patient herself does complain some pain when trying to move the right leg before what I can gather does not really seem to be in any other discomfort. Does look around the room and appears somewhat anxious. reports Sissy has some chronic weakness of the right side." (2) Fracture of right hip: s/p right hip surgery per Dr. Adrien Bonilla's notes: -on admission, patient's Radiographs of the hip demonstrate a valgus impacted femoral neck fracture. A subcapital type fracture. -05/15/2020: s/p Open Reduction Internal Fixation Cannulated Screw Right Hip on 05/15/2020 - Hg stable around 10 -PT/OT -Weightbearing as tolerated Follow-up with orthopedic surgeon Dr. 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 -INR was 4.1 on admission and IV vitamin K was given -INR is 1.2 on discharge day -Continue Coumadin, repeat INR daily Continue Lovenox 40 mg subcutaneous daily for DVT prophylaxis while INR subtherapeutic History of cerebrovascular accident with right-sided weakness in the past History of hyperlipidemia -on aspirin and statin COVID-19 infection Covid antigen test 2019: Negative Covid antigen test 05/19/2020: Positive Herzog ID Covid RNA test 05/19/2020: Pending -Patient saturating 99% on room air Chest x-ray: No pneumonia -Continue to monitor closely, including temperature, oxygen saturation Return to ER if oxygen level is 94% or below -Patient needs to be isolated for at least 14 days Alzheimer's dementia History of depression -Continue citalopram. Hypertension -on amlodipine urinary tract infection -urine culture returns as Escherichia coli -Given IV ceftriaxone x6 days chronic kidney disease stage III History of chronic venous insufficiency -Renal function stable Hypokalemia, mild -Potassium 3.4 on discharge day Potassium supplement ordered History of hypothyroidism -Continue levothyroxine CODE STATUS Full code Disposition Discharge to [facility] facility Follow-up with the orthopedic surgeon in 1 week Follow-up with PCP in 1 to 2 weeks Admission and Anticipated Discharge Date Admission Date: May 13, 2020 Subjective Follow-up for right hip surgery, etc. Found to have Covid positive antigen test today. Patient seen sitting up in bed, comfortable, not in distress With baseline confusion, mostly nonverbal 100% O2 saturation on room air No signs of distress, pain, discomfort, shortness of breath Per RN no other issues today Review of Systems Review of Systems: All systems reviewed & are unremarkable except as noted in Subjective Physical Exam Physical Exam: General- oriented x0, not in distress,breathing with no effort or accessory muscle use Eyes- anicteric Neck- no JVD Lungs- clear breath sounds bilaterally, no rales/wheezes Heart- normal rate, regular rhythm; no murmurs Abdomen- normal bowel sounds, nondistended, soft, nontender Extremities- no pretibial edema, no calf tenderness Right hip region with mild edema, dressing in place with no bleeding or discharge Neuro- alert, oriented x 0; no new gross focal neurologic deficits Skin- warm & dry Results & Data Results & Data ([facility]) Vital Signs (Past 12 Hours) Vital Signs Temp Pulse Resp BP Pulse Ox 05/19/20 07:16 36.7 C 71 16 117/67 94 Laboratory Results Laboratory Results - last 24 hr 05/19/20 05/19/20 05/19/20 08:22 08:22 08:39 WBC 5.86 RBC 3.56 L Hgb 10.4 L Hct 31.5 L MCV 88.5 MCH 29.2 MCHC 33.0 RDW Std Deviation 44.4 RDW Coeff of Hilda 14.2 Plt Count 202 MPV 9.4 Immature Gran % (Auto) 0.2 Neut % (Auto) 69.0 Lymph % (Auto) 14.7 Ransom % (Auto) 13.7 Eos % (Auto) 1.9 Baso % (Auto) 0.5 Neut # (Auto) 4.05 Lymph # (Auto) 0.86 L Ransom # (Auto) 0.80 H Eos # (Auto) 0.11 Baso # (Auto) 0.03 Immature Gran # (Auto) 0.01 PT 12.9 H INR 1.2 H Sodium 139 Potassium 3.4 L Chloride 105 Carbon Dioxide 27 Anion Gap 7.0 BUN 15 Creatinine 0.69 Est Cr Clr Drug Dosing 53.8 Est GFR ( Amer) 90.7 Est GFR (Non-Af Amer) 78.3 BUN/Creatinine Ratio 21.2 H Glucose 101 H Calcium 8.6 COVID-19 Eval Order SARS-CoV-2, RNA, NAAT SARS-CoV-2 Ag (Rapid) 05/19/20 05/19/20 05/19/20 13:05 13:05 Unknown WBC RBC Hgb Hct MCV MCH MCHC RDW Std Deviation RDW Coeff of Hilda Plt Count MPV Immature Gran % (Auto) Neut % (Auto) Lymph % (Auto) Ransom % (Auto) Eos % (Auto) Baso % (Auto) Neut # (Auto) Lymph # (Auto) Ransom # (Auto) Eos # (Auto) Baso # (Auto) Immature Gran # (Auto) PT INR Sodium Potassium Chloride Carbon Dioxide Anion Gap BUN Creatinine Est Cr Clr Drug Dosing Est GFR ( Amer) Est GFR (Non-Af Amer) BUN/Creatinine Ratio Glucose Calcium COVID-19 Eval Order Covid19 IDNow [facility] SARS-CoV-2, RNA, NAAT Pending SARS-CoV-2 Ag (Rapid) Positive A* (1) Fall Encounter type: initial encounter Qualified Code(s): W19.XXXA - Unspecified fall, initial encounter (2) Fracture of right hip Encounter type: initial encounter Fracture type: closed Qualified Code(s): S72.001A - Fracture of unspecified part of neck of right femur, initial encounter for closed fracture
[2020-05-19 13:30] VITALS: BP 127/73
--- NOTE | 2020-05-19 13:34 | Discharge Summary ---
Date of Service May 19, 2020 Admission HPI Per Admitting Provider CHIEF COMPLAINT: Status post fall and right hip fracture. HISTORY OF PRESENT ILLNESS: This is an 85-year-old female with past medical history significant for hypothyroidism, hyperlipidemia, hyperparathyroidism, h ypertension, chronic kidney disease stage III, peripheral vascular disease, venous insufficiency, chronic atrial fibrillation on Coumadin, nutcracker esophagus, diverticulosis of colon, GERD, history of urinary retention, hiatal hernia, meningioma, dementia, history of stroke with right-sided weakness, mostly not oriented as per the , and patient ambulates with a walker. She can have difficulty feeding herself, but she can eat regular food. Last evening, when the patient was going to bathroom, she fell and her helped her to get into the bed and was brought in today and was found to have right hip fracture. Currently resting comfortably and hemodynamically stable. The patient is alert and awake, but not oriented. Could not get any history from the patient. As per , the patient does not have any fever or chills, no cough, no chest pain, no shortness of breath, no nausea, no vomiting. Normal bowel and bladder movements. No blood in the stools. No complaint of headache. No nausea, no fevers. ALLERGIES: No known drug allergies. PAST MEDICAL HISTORY: As mentioned above. PAST SURGICAL HISTORY: Botulinum toxin, breast biopsy for left breast lump, colonoscopy, EGD with biopsy, esophageal motility study, esophageal pH monitoring, partial hysterectomy, bilateral cataract surgery. MEDICATIONS: The patient is on amlodipine 2.5 mg p.o. daily, aspirin 81 mg p.o. daily, atorvastatin 40 mg p.o. daily, citalopram 20 mg p.o. daily, ferrous sulfate 325 mg p.o. daily, levothyroxine 88 mcg p.o. daily, Senokot 8.6 mg p.o. daily, warfarin as directed. FAMILY HISTORY: Significant for father had prostate cancer, mother has diabetes and heart disorder; sister has diabetes; son has psoriasis. SOCIAL HISTORY: , lives with her . No smoking history. No alcohol history. No drug use. REVIEW OF SYSTEMS: As per HPI. Could not get complete review of systems as the patient is mostly not oriented,all the hx got from . Admission Exam Per Admitting Provider GENERAL: The patient is old and frail, not in acute distress. VITAL SIGNS: Temperature 36.7, pulse 68, respiratory rate 16, blood pressure 135/68, oxygen 96% on room air. HEENT: Pupils are equal, round, and reactive to light. Oral mucosa dry. NECK: No neck masses seen. CARDIOVASCULAR: S1, S2 heard, regular rate and rhythm, no murmur, no gallop. RESPIRATORY SYSTEM: Normal AP diameter. No accessory muscle use. No wheezing, no crackles. ABDOMEN: Soft, bowel sounds present, nontender. No distention. CENTRAL NERVOUS SYSTEM: Alert and awake, not oriented. Does not obey commands. EXTREMITIES: No edema, no erythema seen. Right lower extremity is slightly shortened. Principal Diagnosis Right hip fracture, status post surgery COVID-19 infection Urinary tract infection, E. coli Discharge Exam General- oriented x0, not in distress,breathing with no effort or accessory muscle use Eyes- anicteric Neck- no JVD Lungs- clear breath sounds bilaterally, no rales/wheezes Heart- normal rate, regular rhythm; no murmurs Abdomen- normal bowel sounds, nondistended, soft, nontender Extremities- no pretibial edema, no calf tenderness Right hip region with mild edema, dressing in place with no bleeding or discharge Neuro- alert, oriented x 0; no new gross focal neurologic deficits Skin- warm & dry Discharge Data Allergies Allergy/AdvReac Type Severity Reaction Status Date / Time No Known Allergies Allergy Verified 05/13/20 19:10 Consultations 05/13/20 19:16 ED Decision to Admit Stat 05/13/20 21:48 Consult Case Management - Discharge Planning Routine 05/14/20 08:00 Consult Orthopedic Surgery Routine 05/15/20 10:41 Consult Case Management - Discharge Planning Routine Procedures Performed Operation Date: 05/15/20 11:00 Actual Procedures p Open Reduction Internal Fixation Cannulated Screw Right Hip(Right) - Mauro Tena MD Ordered Studies 05/15/20 07:00 FL fluoroscopy <1hr Routine FL hip RT 2-3V Routine Hospital Course (1) Fall: per Dr. Adrien Bonilla's notes: -as per ED notes on 05/13/2020 "Patient is a 85-year-old female history of CKD, atrial fibrillation, Alzheimer's disease, CVA with some resultant right-sided deficits presented today via ambulance from home after a fall that happened about 24 hours ago. Patient's present provides majority of the history is a patient self unable to recall and provide significant history. He states yesterday they are walking in behind her to help support her and she lost her balance and slid down to the ground on the right side. Patient states he broke her fall underneath of her and tried to hold her up but was unsuccessful. States she did not strike her head or seem to suffer significant injury at that time. Was able to bear little bit of weight on her legs at that point and did not seem to significantly injured so he watched her overnight. Ate okay today but then started complain of some pain with movement of the right leg and thigh. No additional falls reported. Patient herself does complain some pain when trying to move the right leg before what I can gather does not really seem to be in any other discomfort. Does look around the room and appears somewhat anxious. reports Sissy has some chronic weakness of the right side." (2) Fracture of right hip: s/p right hip surgery per Dr. Adrien Bonilla's notes: -on admission, patient's Radiographs of the hip demonstrate a valgus impacted femoral neck fracture. A subcapital type fracture. -05/15/2020: s/p Open Reduction Internal Fixation Cannulated Screw Right Hip on 05/15/[address] Mauro Tena - Hg stable around 10 - PT/OT -Weightbearing as tolerated Follow-up with orthopedic surgeon Dr. Muaro Tena in [address] 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 -INR was 4.1 on admission and IV vitamin K was given -INR is 1.2 on discharge day -Continue Coumadin, repeat INR daily Continue Lovenox 40 mg subcutaneous daily for DVT prophylaxis while INR subtherapeutic History of cerebrovascular accident with right-sided weakness in the past History of hyperlipidemia -on aspirin and statin COVID-19 infection Covid antigen test 2019: Negative Covid antigen test 05/19/2020: Positive Herzog ID Covid RNA test 05/19/2020: Pending -Patient saturating 99% on room air Chest x-ray: No pneumonia -Continue to monitor closely, including temperature, oxygen saturation Return to ER if oxygen level is 94% or below -Patient needs to be isolated for at least 14 days Alzheimer's dementia History of depression -Continue citalopram. Hypertension -on amlodipine urinary tract infection -urine culture returns as Escherichia coli -Given IV ceftriaxone x6 days chronic kidney disease stage III History of chronic venous insufficiency -Renal function stable Hypokalemia, mild -Potassium 3.4 on discharge day Potassium supplement ordered History of hypothyroidism -Continue levothyroxine CODE STATUS Full code Disposition Discharge to senior care facility Follow-up with the orthopedic surgeon in 1 week Follow-up with PCP in 1 to 2 weeks Total Time Total Time Spent Total Time Spent (In Minutes): > 30 minutes Discharge Plan Discharge Items Patient Disposition: Transfer [facility] Reason For Visit: FALL Discharge Diagnosis: RIGHT HIP FRACTURE, S/P SURGERY URINARY TRACT INFECTION COVID 19 INFECTION Activity: As commented below Activity Comment: PT/OT EVALUATION, ALWAYS WITH ASSISTANCE, FALL PRECAUTIONS Non-emergency contact: Primary Care Provider and Surgeon Call non-emergency contact if: you have any medication questions, your symptoms worsen, your pain is not controlled, your pain is worsening, your pain is unusual for you, your pain is concerning for you, you have a fever, your wound has increased redness, your wound has increased drainage and your wound pain has increased Follow-up/Referrals: Mauro Tena MD [Surgeon] - Prabhjot Saeed DO [Primary Care Provider] - Diet: Heart Healthy Addtl Attending Provider Instructions: Weight bearing as tolerated. Follow-up with orthopedic surgeon Dr. Mauro Tena at [facility] [phone] in 1 week. Patient diagnosed with COVID-19 infection 05/19/2020. Oxygen saturation 99% on room air, chest x-ray no pneumonia. Continue to monitor temperature, O2 saturation daily. Return to ER if with worsening of symptoms, or desaturation 94% or below. Repeat INR tomorrow, then daily. Adjust Coumadin accordingly. Lovenox 40 mg subcutaneous daily for DVT prophylaxis while INR is subtherapeutic. Please refer to discharge summary for further details. Pending Studies at Discharge: Yes Studies:: Repeat INR tomorrow, then daily, until INR therapeutic Stand-Alone Forms: [employer], Smoking Cessation Skilled Items Patient informed of condition?: Yes DNR: No Discharge Level of Care: Skilled Communicable Disease: Yes Discharge Prognosis: Stable Lines: None Urinary Catheter: No Medications and DC Order Prescriptions: New multivitamin [Daily-Freeman] Tablet 1 tab PO QAM Qty: 30 RF: 0 sennosides [Senokot] 8.6 mg Tablet 17.2 mg PO HS Qty: 14 RF: 0 docusate sodium 100 mg Capsule 100 mg PO BID Qty: 14 RF: 0 enoxaparin 40 mg/0.4 mL Syringe 40 mg subcut QAM 30 Days Qty: 12 RF: 0 potassium chloride [Klor-Con 10] 10 mEq tablet extended release 40 meq PO DAILY Qty: 28 RF: 0 Continued atorvastatin 40 mg Tablet 40 mg PO DAILY RF: 0 sennosides [senna] 8.6 mg Tablet 8.6 mg PO DAILY RF: 0 amlodipine 2.5 mg Tablet 2.5 mg PO DAILY RF: 0 aspirin [Aspirin Low Dose] 81 mg Tablet,Delayed Release (Dr/Ec) 81 mg PO DAILY RF: 0 levothyroxine 88 mcg Tablet 88 mcg PO DAILY RF: 0 warfarin 6 mg Tablet See Rx Instructions .ROUTE .COMPLEX RF: 0 citalopram 20 mg Tablet 20 mg PO DAILY RF: 0 ferrous sulfate 325 mg (65 mg iron) Tablet 325 mg PO QDB RF: 0 Discharge Orders: Discharge Order (Routine); Ordered 05/19/20 Ordered By: Mohsen Hackett Admission Data Admit Date/Time: 05/13/20 20:13 Attending Provider: Mohsen Hackett Admit Provider: Jonathan Myers Primary Care Provider: Prabhjot Saeed Other Providers: Jonathan Myers ; Maruo Tena ; Vik[facility] Miller [facility] [place] ; [facility] ; Adrien Bonilla
[2020-05-20] MEDS ORDERED: REMDESIVIR 100 MG in SODIUM CHLORIDE 0.9% 230 ML IV SCH (11:30)
== END 2020-05-19 14:12 | DRG 481 ==
LOC: ED 17:40 → SUATTDRO 20:13 → 3W 20:13